=== PATIENT | female | born 1950 | race Caucasian/White ===

== ENCOUNTER → 2021-04-08 12:07 | Outpatient (CLI) | payer MEDICARE, SELFPAY ==
[2021-04-08 12:43] LABS: Add Manual Diff / Slide Review NO; Basophils Absolute Auto 0 /uL (0-100); Basophils Percent Auto 0.2 % (0-2); Eosinophils Absolute Auto 0 /uL (0-450); Eosinophils Percent Auto 0.2 % (2-4); Hematocrit 39.7 % (36-46); Hemoglobin 13.4 g/dL (12.0-16.0); Lymphocytes Absolute Auto 700 /uL (1100-4500); Lymphocytes Percent Auto 10.6 % (25-40); Mean Corpuscular HGB Conc 33.7 % (30-36); Mean Corpuscular Hemoglobin 28.1 PG (26-34); Mean Corpuscular Volume 83.4 fL (80-100); Monocytes Absolute Auto 400 /uL (0-900); Monocytes Percent Auto 6.9 % (3-14); Neutrophils Absolute Auto 5100 /uL (1500-7000); Neutrophils Percent Auto 82.1 % (50-75); Platelet Count 239 X10^3/uL (150-400); Red Blood Cell Count 4.76 X10^6/uL (4.0-5.2); Red Cell Distribution Width 14.7 % (11.6-14.8); White Blood Cell Count 6.2 X10^3/uL (4.5-11.0)
[2021-04-08 12:58] LABS: Alanine Aminotransferase 24 IU/L (<35); Albumin Globulin Ratio 1.7 (1.0-2.8); Alkaline Phosphatase 78 U/L (38-126); Aspartate Aminotransferase 30 IU/L (14-36); Bilirubin Total 0.5 mg/dL (0.2-1.3); Blood Urea Nitrogen 9 mg/dL (7-17); Calcium 9.8 mg/dL (8.4-10.2); Carbon Dioxide 28 mmol/L (22-32); Creatine Kinase 84 U/L (30-135); Estimated Glomerular Filt Rate > 60.0 mL/min (>60); Glucose 123 mg/dL (80-110); HEMOLYSIS < 15 (0-50); Potassium 4.2 mmol/L (3.4-5.1)
[2021-04-08 13:10] LABS: Troponin I < 0.012 ng/mL (0.01-0.034)
[2021-04-08 13:11] LABS: Sodium 115 mmol/L (137-145)
[2021-04-08 13:12] LABS: Chloride 76 mmol/L (98-107)
[2021-04-08 13:13] LABS: Erythrocyte Sedimentation Rate 2 MM/HR (0-20)
== END ==
PROVIDERS: PCP Physician Assistant; Referring Provider Physician Assistant; Visit Provider Physician Assistant
DX: R53.1 Weakness (principal)
CPT/HCPCS: 36415; 80053; 82550; 84484; 85025; 85651

== ENCOUNTER 2021-04-08 14:27 | Inpatient (IN) | payer MEDICARE, SELFPAY ==
[2021-04-08] VITALS (13 sets, daily range): BP systolic 135–202; BP diastolic 66–84; PULSE 71–82; RESP 13–29; TEMP 36.6; O2SAT 98–100; BMI 24.7; BMI 25.4
--- NOTE | 2021-04-08 15:01 | ED.GENADULT ---
HPI - General Adult General Chief complaint: Weakness Stated complaint: Low sodium levels, Sent by PCP Time Seen by Provider: 04/08/21 14:48 Source: patient Mode of arrival: Wheelchair Limitations: no limitations History of Present Illness HPI narrative: Patient is a 70-year-old female. Approximately 5 days ago she was at her normal state health. She went to go use the restroom and as she was standing up from the restroom noticed that she was having quite a bit of weakness. Since that time she has felt very poorly. Has had weakness. Some lightheadedness. No chest pain. No shortness of breath. No abdominal pain. No nausea vomiting. No urinary symptoms. No change in her bowel habits. She is a [id number] diabetic. Does have neuropathy in her feet and this is not changed. Yesterday had a telephone visit with a new primary doctor. Was having some dysuria. Was placed on antibiotics. Today she had a inpatient visit with his primary doctor. Had labs drawn as an outpatient. It was noticed that her sodium was low so she was instructed to come to the emergency department for further evaluation. She has been taking all of her medications as directed. Related Data Home Medications Medication Instructions Recorded Confirmed fluticasone propionate 50 1 spray INTRANASAL DAILY PRN 04/08/21 04/08/21 mcg/actuation nasal spray,suspension gabapentin 600 mg tablet 1,200 mg PO BEDTIME 04/08/21 04/08/21 gabapentin 600 mg tablet 600 mg PO QAM 04/08/21 04/08/21 hydrochlorothiazide 25 mg tablet 25 mg PO QAM 04/08/21 04/08/21 lisinopril 20 mg tablet 20 mg PO QAM 04/08/21 04/08/21 meloxicam 15 mg tablet 15 mg PO QAM 04/08/21 04/08/21 metformin 500 mg tablet 500 mg PO BID 04/08/21 04/08/21 nitrofurantoin 100 cap PO BID 04/08/21 04/08/21 monohydrate/macrocrystals 100 mg capsule Allergies Allergy/AdvReac Type Severity Reaction Status Date / Time No Known Drug Allergies Allergy Verified 04/08/21 14:34 Review of Systems Constitutional Constitutional: Reports fatigue, Denies headache(s) and Reports malaise Eyes Eyes: Denies change in vision ENT Ears, Nose, Mouth, and Throat: Denies headache(s) Cardiovascular Cardiovascular: Denies chest pain and Denies dyspnea Respiratory Respiratory: Denies dyspnea Gastrointestinal Gastrointestinal: Denies abdominal pain, Denies nausea and Denies vomiting Genitourinary Genitourinary: Reports system reviewed and no additional complaints, except as documented Musculoskeletal Musculoskeletal: Reports system reviewed and no additional complaints, except as documented and Reports as per HPI Integumentary/Breasts Skin/Breast: Reports system reviewed and no additional complaints, except as documented and Reports as per HPI Neurologic Neurologic: Reports as per HPI and Denies headache(s) Endocrine Endocrine: Reports fatigue Hematologic/Lymphatic On Anticoagulants: No Patient History Medical History Hypertension Peripheral neuropathy Type 2 diabetes mellitus Social History Smoking Status: Never smoker Smoking Status: Never smoker alcohol intake frequency: a few times a week Substance Use Type: does not use Exam Initial Vital Signs Initial Vital Signs: Vital Signs Temperature 97.8 F 04/08/21 14:30 Pulse Rate 78 04/08/21 14:30 Respiratory Rate 18 04/08/21 14:30 Blood Pressure 202/79 H 04/08/21 14:30 Pulse Oximetry 98 04/08/21 14:30 Const General: cooperative, healthy appearing, comfortable and well developed [facility] Head: normal to inspection and normocephalic Eyes General: appearance normal, both eyes and all related structures Neck Neck: normal visual inspection and no meningeal signs Resp Effort & Inspection: normal respiratory effort Auscultation: clear to auscultation bilaterally Cardio Rate: regular rate Rhythm: regular rhythm GI Inspection: non-distended Palpation: soft and No tender Back/Spine/Pelvis Back: normal to inspection Skin Lesions: no lesions Rashes: no rashes Neuro General: patient alert, patient awake, patient oriented x3 and moves all extremities Cognition: normal cognition Speech: speech normal Motor: muscle tone normal throughout Sensory Exam: no sensory deficits noted Extrem General: normal to inspection and capillary refill normal Psych Appearance: grossly normal and well kempt Course Orders Ordered: ED Orders 04/08/21 14:55 Complete Blood Count AUTO DIFF Stat Comprehensive Metabolic Panel Stat Lipase Stat Magnesium Stat Phosphorous Stat 04/08/21 14:59 COVID19 - ADMIT (COSMETICS PRESSER swab/PCR) Stat Acetaminophen (Acetaminophen 325 Mg Tablet) 650 mg PO Q6HR PRN PRN Reason: Fever Enoxaparin Sodium (Enoxaparin 40 Mg/0.4 Ml Syringe) 40 mg SUBCUT DAILY GREY Sodium Chloride (Hypertonic Saline 3%) 500 mls @ 30 mls/hr IV CONT GREY Naloxone HCl (Naloxone 0.4 Mg/Ml Vial) 0.2 mg IV Q2MIN PRN PRN Reason: Opiate Reversal Vital Signs Vital signs: Vital Signs - 8 hr 04/08/21 14:30 04/08/21 14:58 04/08/21 15:00 Temperature 97.8 F Pulse Rate 78 82 81 Respiratory Rate 18 29 H 23 Blood Pressure 202/79 H 189/84 H Pulse Oximetry 98 100 99 04/08/21 15:30 Temperature Pulse Rate 78 Respiratory Rate 15 Blood Pressure 171/76 H Pulse Oximetry 99 Medical Decision Making Lab Data Lab results reviewed: Yes I reviewed the patient's lab results. Result diagrams: 04/08/21 14:55 04/08/21 14:55 Labs: Lab Results 04/08/21 04/08/21 04/08/21 Range/Units 14:55 14:55 14:55 WBC 5.9 (4.5-11.0) X10^3/uL RBC 4.55 (4.0-5.2) X10^6/uL Hgb 12.9 (12.0-16.0) g/dL Hct 38.4 (36-46) % MCV 84.3 (80-100) fL MCH 28.3 (26-34) PG MCHC 33.5 (30-36) % RDW 14.7 (11.6-14.8) % Plt Count 229 (150-400) X10^3/uL Neut % (Auto) 81.7 H (50-75) % Lymph % (Auto) 11.4 L (25-40) % [place] % (Auto) 6.6 (3-14) % Eos % (Auto) 0.2 L (2-4) % Baso % (Auto) 0.1 (0-2) % Neut # (Auto) 4800 (1597-0119) /uL Lymph # (Auto) 700 L (6272-8935) /uL [place] # (Auto) 400 (0-900) /uL Eos # (Auto) 0 (0-450) /uL Baso # (Auto) 0 (0-100) /uL Sodium 113 L* (137-145) mmol/L Potassium 3.8 (3.4-5.1) mmol/L Chloride 78 L (98-107) mmol/L Carbon Dioxide 24 (22-32) mmol/L BUN 8 (7-17) mg/dL Creatinine 0.39 L (0.52-1.04) mg/dL Estimated GFR > 60.0 (>60) mL/min BUN/Creatinine Ratio 20.5 (6-22) Glucose 163 H (80-110) mg/dL Calcium 9.3 (8.4-10.2) mg/dL Phosphorus 3.8 (2.8-4.1) mg/dL Magnesium 1.6 (1.6-2.3) mg/dL Total Bilirubin 0.5 (0.2-1.3) mg/dL AST 39 H (14-36) IU/L ALT 23 (<35) IU/L Alkaline Phosphatase 71 (38-126) U/L Total Protein 7.5 (6.3-8.2) g/dL Albumin 4.7 (3.5-5.0) g/dL Globulin 2.8 (1.7-4.1) g/dL Albumin/Globulin Ratio 1.7 (1.0-2.8) Lipase 89 (23-300) U/L SARS-CoV-2 (PCR) (Negative) 04/08/21 Range/Units 14:59 WBC (4.5-11.0) X10^3/uL RBC (4.0-5.2) X10^6/uL Hgb (12.0-16.0) g/dL Hct (36-46) % MCV (80-100) fL MCH (26-34) PG MCHC (30-36) % RDW (11.6-14.8) % Plt Count (150-400) X10^3/uL Neut % (Auto) (50-75) % Lymph % (Auto) (25-40) % [place] % (Auto) (3-14) % Eos % (Auto) (2-4) % Baso % (Auto) (0-2) % Neut # (Auto) (6690-1715) /uL Lymph # (Auto) (4222-3511) /uL [place] # (Auto) (0-900) /uL Eos # (Auto) (0-450) /uL Baso # (Auto) (0-100) /uL Sodium (137-145) mmol/L Potassium (3.4-5.1) mmol/L Chloride (98-107) mmol/L Carbon Dioxide (22-32) mmol/L BUN (7-17) mg/dL Creatinine (0.52-1.04) mg/dL Estimated GFR (>60) mL/min BUN/Creatinine Ratio (6-22) Glucose (80-110) mg/dL Calcium (8.4-10.2) mg/dL Phosphorus (2.8-4.1) mg/dL Magnesium (1.6-2.3) mg/dL Total Bilirubin (0.2-1.3) mg/dL AST (14-36) IU/L ALT (<35) IU/L Alkaline Phosphatase (38-126) U/L Total Protein (6.3-8.2) g/dL Albumin (3.5-5.0) g/dL Globulin (1.7-4.1) g/dL Albumin/Globulin Ratio (1.0-2.8) Lipase (23-300) U/L SARS-CoV-2 (PCR) Negative (Negative) MDM Narrative Medical decision making narrative: Patient's symptoms seem to have started 5 days ago. Her sodium today is low. I suspect that this is the cause of her symptoms over the past 5 days. Kidney function is unremarkable. Discussed the case with Dr. Womack with Internal Medicine. Will admit for further evaluation treatment. Did discuss this with the patient as well. She expressed understanding agreement. Discharge Plan Departure Admit Date/Time: 04/08/21 16:12 Admit Provider: Sarmad Womack
[2021-04-08 15:03] LABS: Add Manual Diff / Slide Review NO; Basophils Absolute Auto 0 /uL (0-100); Basophils Percent Auto 0.1 % (0-2); Eosinophils Absolute Auto 0 /uL (0-450); Eosinophils Percent Auto 0.2 % (2-4); Hematocrit 38.4 % (36-46); Hemoglobin 12.9 g/dL (12.0-16.0); Lymphocytes Absolute Auto 700 /uL (1100-4500); Lymphocytes Percent Auto 11.4 % (25-40); Mean Corpuscular HGB Conc 33.5 % (30-36); Mean Corpuscular Hemoglobin 28.3 PG (26-34); Mean Corpuscular Volume 84.3 fL (80-100); Monocytes Absolute Auto 400 /uL (0-900); Monocytes Percent Auto 6.6 % (3-14); Neutrophils Absolute Auto 4800 /uL (1500-7000); Neutrophils Percent Auto 81.7 % (50-75); Platelet Count 229 X10^3/uL (150-400); Red Blood Cell Count 4.55 X10^6/uL (4.0-5.2); Red Cell Distribution Width 14.7 % (11.6-14.8); White Blood Cell Count 5.9 X10^3/uL (4.5-11.0)
--- NOTE | 2021-04-08 15:07 | PC.NURSE ---
Patient states she has felt weak since ; her PCP kathryn labs and advised her to come to the ER for her low Sodium.
[2021-04-08 15:17] LABS: Alanine Aminotransferase 23 IU/L (<35); Albumin 4.7 g/dL (3.5-5.0); Albumin Globulin Ratio 1.7 (1.0-2.8); Alkaline Phosphatase 71 U/L (38-126); Aspartate Aminotransferase 39 IU/L (14-36); BUN Creatinine Ratio 20.5 (6-22); Bilirubin Total 0.5 mg/dL (0.2-1.3); Blood Urea Nitrogen 8 mg/dL (7-17); Calcium 9.3 mg/dL (8.4-10.2); Carbon Dioxide 24 mmol/L (22-32); Chloride 78 mmol/L (98-107); Estimated Glomerular Filt Rate > 60.0 mL/min (>60); Globulin 2.8 g/dL (1.7-4.1); Glucose 163 mg/dL (80-110); HEMOLYSIS 32 (0-50); Potassium 3.8 mmol/L (3.4-5.1); Total Protein 7.5 g/dL (6.3-8.2)
[2021-04-08 15:18] LABS: Lipase 89 U/L (23-300); Magnesium 1.6 mg/dL (1.6-2.3); Phosphorous 3.8 mg/dL (2.8-4.1)
[2021-04-08 15:24] LABS: Sodium 113 mmol/L (137-145)
--- NOTE | 2021-04-08 16:25 | PC.NURSE ---
Up to bathroom with 1 person assist; slightly wobbly on feet.
[2021-04-08 16:27] LABS: COVID19 - ADMIT (NP swab/PCR) Negative (Negative)
--- NOTE | 2021-04-08 16:43 | PC.NURSE ---
Charu [phone]; [id number] --would like update when possible.
--- NOTE | 2021-04-08 17:32 | PC.NURSE ---
Tressa Edge RN in ED for PICC insertion
[2021-04-08] MEDS: SODIUM CHLORIDE 3 % 500 ML 30 ML IV (18:41)
[2021-04-08 19:07] LABS: Blood Urea Nitrogen 8 mg/dL (7-17); Calcium 9.4 mg/dL (8.4-10.2); Carbon Dioxide 29 mmol/L (22-32); Chloride 79 mmol/L (98-107); Estimated Glomerular Filt Rate > 60.0 mL/min (>60); Glucose 118 mg/dL (80-110); HEMOLYSIS < 15 (0-50); Potassium 3.7 mmol/L (3.4-5.1)
[2021-04-08 19:18] LABS: Sodium 115 mmol/L (137-145)
--- NOTE | 2021-04-08 19:29 | P.HP_ITS ---
History of Present Illness History of Present Illness Date Patient Seen: 04/08/21 Time Patient Seen: 16:00 Chief complaint: Low sodium levels, Sent by PCP Narrative: Ms. Vasquez is a 70W with PMH HTN, DM, peripheral neuropathy who is coming in to the hospital with weakness, imbalanced and hyponatremia. She was in her normal state of health approximately 5 days ago, but since then she has started to notice progressively worsening imbalance and weakness. She has noticed lightheadedness. She has decreased oral intake due to low appetite. No nausea, vomiting, abdominal pain, diarrhea. She had some dysuria prior to this presentation and talked to her PCP and was ordered for macrobid and took two doses. In addition she had lab tests drawn and was found to have a sodium of 115, and was instructed to come to ED. She is on HCTZ, but this is not a new medication, and she is at her baseline dose. She has no new meds, no weight loss, no respiratory symptoms, no OTC/herbal meds. In the ED, workup was done, vitals were notable for significant hypertension. Labs notable for WBC 5.9, hgb 12.9, plt 229, na 113, cl 78, k 3.8, mag 1.6, bun 8, creatinine 0.39. She was ordered for 3% hypertonic saline and ordered for a midline. She was admitted for further treatment. Family history: both parents with CHF Patient History Medical History Hypertension Peripheral neuropathy Type 2 diabetes mellitus Family & Social History Safety & Behavioral: Feels Safe in Current Yes Environment Been Physically Hurt or No Threatened By a Person Tobacco & Substance use: Smoking Status Never smoker alcohol intake frequency a few times a week Substance Use Type does not use Meds Home Medications and Allergies Home Medications Medication Instructions Recorded Confirmed Type fluticasone propionate 50 1 spray INTRANASAL DAILY PRN 04/08/21 04/08/21 History mcg/actuation nasal spray,suspension gabapentin 600 mg tablet 1,200 mg PO BEDTIME 04/08/21 04/08/21 History gabapentin 600 mg tablet 600 mg PO QAM 04/08/21 04/08/21 History hydrochlorothiazide 25 mg tablet 25 mg PO QAM 04/08/21 04/08/21 History lisinopril 20 mg tablet 20 mg PO QAM 04/08/21 04/08/21 History meloxicam 15 mg tablet 15 mg PO QAM 04/08/21 04/08/21 History metformin 500 mg tablet 500 mg PO BID 04/08/21 04/08/21 History nitrofurantoin 100 cap PO BID 04/08/21 04/08/21 History monohydrate/macrocrystals 100 mg capsule Allergies Allergy/AdvReac Type Severity Reaction Status Date / Time No Known Drug Allergies Allergy Verified 04/08/21 14:34 Review of Systems Review of Systems Narrative: 14 systems reviewed and negative aside from what is noted in HPI Exam Vital Signs (past 8 hours): - 04/08/21 14:30 04/08/21 14:58 04/08/21 15:00 Temperature 97.8 F Pulse Rate 78 82 81 Respiratory Rate 18 29 H 23 Blood Pressure 202/79 H 189/84 H Pulse Oximetry 98 100 99 04/08/21 15:30 04/08/21 16:00 04/08/21 18:26 Temperature 97.9 F Pulse Rate 78 78 73 Respiratory Rate 15 20 14 Blood Pressure 171/76 H 177/77 H 169/77 H Pulse Oximetry 99 100 100 Oxygen Delivery Method Room Air Oxygen Flow Rate 0 Narrative Exam Narrative: GEN: no acute distress HEENT: dry mucous membranes, PERRL NECK: trachea midline, no JVD CV: regular rate and rhythm, no murmurs PULM: clear bilaterally, no wheezes, rhonchi, rales ABD: soft, nontender, nondistended, no organomegaly, normal bowel sounds EXT: warm and well perfused with no edema NEURO: slow to respond, but otherwise awake alert and oriented, with no focal deficits noted PSYCH: pleasant, cooperative Objective Labs Result Diagrams: 04/08/21 14:55 04/08/21 18:40 Labs: Laboratory Results - last 24 hr 04/08/21 04/08/21 04/08/21 14:55 14:55 14:55 WBC 5.9 RBC 4.55 Hgb 12.9 Hct 38.4 MCV 84.3 MCH 28.3 MCHC 33.5 RDW 14.7 Plt Count 229 Neut % (Auto) 81.7 H Lymph % (Auto) 11.4 L [place] % (Auto) 6.6 Eos % (Auto) 0.2 L Baso % (Auto) 0.1 Neut # (Auto) 4800 Lymph # (Auto) 700 L [place] # (Auto) 400 Eos # (Auto) 0 Baso # (Auto) 0 Sodium 113 L* Potassium 3.8 Chloride 78 L Carbon Dioxide 24 BUN 8 Creatinine 0.39 L Estimated GFR > 60.0 BUN/Creatinine Ratio 20.5 Glucose 163 H Calcium 9.3 Phosphorus 3.8 Magnesium 1.6 Total Bilirubin 0.5 AST 39 H ALT 23 Alkaline Phosphatase 71 Total Protein 7.5 Albumin 4.7 Globulin 2.8 Albumin/Globulin Ratio 1.7 Lipase 89 SARS-CoV-2 (PCR) 04/08/21 04/08/21 14:59 18:40 WBC RBC Hgb Hct MCV MCH MCHC RDW Plt Count Neut % (Auto) Lymph % (Auto) [place] % (Auto) Eos % (Auto) Baso % (Auto) Neut # (Auto) Lymph # (Auto) [place] # (Auto) Eos # (Auto) Baso # (Auto) Sodium 115 L* Potassium 3.7 Chloride 79 L Carbon Dioxide 29 BUN 8 Creatinine 0.47 L Estimated GFR > 60.0 BUN/Creatinine Ratio 17.0 Glucose 118 H Calcium 9.4 Phosphorus Magnesium Total Bilirubin AST ALT Alkaline Phosphatase Total Protein Albumin Globulin Albumin/Globulin Ratio Lipase SARS-CoV-2 (PCR) Negative Assessment & Plan Assessment & Plan narrative: Ms. Vasquez is a 70W with PMH DM, HTN who presents with imbalance found to have severe hyponatremia 1. Severe symptomatic hyponatremia -patient appears mildly hypovolemic on exam, but not significantly so -most likely etiology is HCTZ, worsened hyponatremia in setting of poor nutrition intake -also consider SIADH -urine and sodium osms ordered, are sendout -for now given severe hyponatremia, will start infusion of hypertonic saline -check lytes q3 hours -goal to correct to 118-119 and then correct slowly -hold hctz for now 2. Type 2 Diabetes -hold metformin -ordered for insulin sliding scale 3. Hypertension -hold hctz -continue lisinopril 4. Diabetic peripheral neuropathy -continue gabapentin 5. UTI -macrobid was ordered as an outpatient -for now given dose of ceftriaxone today and tomorrow for 3 day course of antibiotics CODE: Full PROXY: Charu Leatha, family Dispo: inpatient, expected greater than 2 midnights due to severe hyponatremia I have utilized all available resources to review update, and confirm his current medications Time Spent With Patient Critical Care time: I spent a total of [35] minutes of critical care time on this patient's care today; this time is exclusive of procedural time. Quality MIPS - Admit I confirm the patient?s Advance Care Plan is present, Code status is documented, Surrogate decision maker is in patient?s record [If Yes, STOP here]: Yes
[2021-04-08] MEDS: cefTRIAXone 1,000 MG in SODIUM CHLORIDE 0.9% 100 ML 200 ML IV (20:53)
[2021-04-08] MEDS: GABAPENTIN 600 MG TABLET 1200 MG PO (20:54)
[2021-04-08 21:27] LABS: Uric Acid 2.4 mg/dL (2.5-6.2)
--- NOTE | 2021-04-08 21:29 | PM.CN.EICU ---
History of Present Illness Consult details Chief complaint: Low sodium levels, Sent by PCP :: This patient was seen via real time interactive two-way audiovisual telecommunication. 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 Pt on HCTZ, but has been on it for years (>10). She states that she has had dec water intake as her well water has been tasting off recently. In the ED, she wa started on 3% saline and she was admitted to the ICU. We were asked to help manage patient in consultation. Currently pt denies any SOB, CB, dizzyness. She states that she feels a little weak, but is non-focal. Speech is fluent without e/o overt confusion. Per bedside nurse, pt at times seems a bit confused. [facility] Medical History (Updated 04/08/21 @ 21:56 by Leann Morgan MD) Hypertension Peripheral neuropathy Type 2 diabetes mellitus Social History household members: none Smoking Status: Never smoker Current Medications Current Medications Medications: Home Medications fluticasone propionate 50 mcg/actuation nasal spray,suspension 1 spray INTRANASAL DAILY PRN 04/08/21 [History Confirmed 04/08/21] gabapentin 600 mg tablet 1,200 mg PO BEDTIME 04/08/21 [History Confirmed 04/08/21] gabapentin 600 mg tablet 600 mg PO QAM 04/08/21 [History Confirmed 04/08/21] hydrochlorothiazide 25 mg tablet 25 mg PO QAM 04/08/21 [History Confirmed 04/08/21] lisinopril 20 mg tablet 20 mg PO QAM 04/08/21 [History Confirmed 04/08/21] meloxicam 15 mg tablet 15 mg PO QAM 04/08/21 [History Confirmed 04/08/21] metformin 500 mg tablet 500 mg PO BID 04/08/21 [History Confirmed 04/08/21] nitrofurantoin monohydrate/macrocrystals 100 mg capsule 100 cap PO BID 04/08/21 [History Confirmed 04/08/21] Visit Medications (administered) Generic Name Dose Route Start Last Admin Trade Name Freq PRN Reason Stop Dose Admin Gabapentin 1,200 mg 04/08/21 21:00 04/08/21 20:54 Gabapentin 600 Mg Tablet PO 1,200 mg BEDTIME GREY Administration Sodium Chloride 500 mls @ 30 mls/hr 04/08/21 16:00 04/08/21 18:41 Hypertonic Saline 3% IV 30 mls/hr CONT GREY Administration Ceftriaxone Sodium 1,000 mg/ 100 mls @ 200 mls/hr 04/08/21 20:00 04/08/21 20:53 Sodium Chloride IV 200 mls/hr Q24H GREY Administration Insulin Human Lispro 0 unit 04/08/21 21:00 04/08/21 20:52 Insulin Lispro 100 Unit/Ml 3ml Vial SUBCUT Not Given ACHS GREY Protocol Exam Vital Signs (past 8 hours): - 04/08/21 14:30 04/08/21 14:58 04/08/21 15:00 Temperature 97.8 F Pulse Rate 78 82 81 Respiratory Rate 18 29 H 23 Blood Pressure 202/79 H 189/84 H Pulse Oximetry 98 100 99 04/08/21 15:30 04/08/21 16:00 04/08/21 18:26 Temperature 97.9 F Pulse Rate 78 78 73 Respiratory Rate 15 20 14 Blood Pressure 171/76 H 177/77 H 169/77 H Pulse Oximetry 99 100 100 04/08/21 20:00 04/08/21 20:01 04/08/21 21:00 Temperature Pulse Rate 74 72 81 Respiratory Rate 15 15 26 H Blood Pressure 177/74 H 175/76 H Pulse Oximetry 98 98 98 04/08/21 21:01 Temperature Pulse Rate 80 Respiratory Rate 17 Blood Pressure Pulse Oximetry Oxygen Delivery Method Room Air Oxygen Flow Rate 0 Objective Labs Result Diagrams: 04/08/21 14:55 04/08/21 18:40 Labs: Laboratory Results - last 24 hr 04/08/21 04/08/21 04/08/21 14:55 14:55 14:55 WBC 5.9 RBC 4.55 Hgb 12.9 Hct 38.4 MCV 84.3 MCH 28.3 MCHC 33.5 RDW 14.7 Plt Count 229 Neut % (Auto) 81.7 H Lymph % (Auto) 11.4 L [place] % (Auto) 6.6 Eos % (Auto) 0.2 L Baso % (Auto) 0.1 Neut # (Auto) 4800 Lymph # (Auto) 700 L [place] # (Auto) 400 Eos # (Auto) 0 Baso # (Auto) 0 Sodium 113 L* Potassium 3.8 Chloride 78 L Carbon Dioxide 24 BUN 8 Creatinine 0.39 L Estimated GFR > 60.0 BUN/Creatinine Ratio 20.5 Glucose 163 H Uric Acid Calcium 9.3 Phosphorus 3.8 Magnesium 1.6 Total Bilirubin 0.5 AST 39 H ALT 23 Alkaline Phosphatase 71 Total Protein 7.5 Albumin 4.7 Globulin 2.8 Albumin/Globulin Ratio 1.7 Lipase 89 SARS-CoV-2 (PCR) 04/08/21 04/08/21 04/08/21 14:59 18:40 18:40 WBC RBC Hgb Hct MCV MCH MCHC RDW Plt Count Neut % (Auto) Lymph % (Auto) [place] % (Auto) Eos % (Auto) Baso % (Auto) Neut # (Auto) Lymph # (Auto) [place] # (Auto) Eos # (Auto) Baso # (Auto) Sodium 115 L* Potassium 3.7 Chloride 79 L Carbon Dioxide 29 BUN 8 Creatinine 0.47 L Estimated GFR > 60.0 BUN/Creatinine Ratio 17.0 Glucose 118 H Uric Acid 2.4 L Calcium 9.4 Phosphorus Magnesium Total Bilirubin AST ALT Alkaline Phosphatase Total Protein Albumin Globulin Albumin/Globulin Ratio Lipase SARS-CoV-2 (PCR) Negative Assessment & Plan Assessment and plan (1) Hyponatremia: Status: Acute Plan: -Unclear etiology of hyponatremia. Pt has been on HCTZ for years and usually hyponatremia happens in the first few weeks of HCTZ introduction. No previous labs available but ? if pt has been hyponetremic for a long time and is now just symptomatic (or UTI pushed her over the edge) -Cont w 3% Nacl and check frequent Na levels. Avoid too rapid a correction (Goal ~8 meq/24 hours) -Will check TSH and random serum cortisol -Check uric acid (usually low in SIADH) -Consider imaging (pCXR to r/o lung mass or Head CT to r/o intracranial pathology) if hyponatremia related to SIADH and there is concern for pathology (2) Hypertension: Status: Acute Plan: Add PRN labetalol. Change HCTZ to other agent (3) UTI (urinary tract infection): Status: Acute Plan: Check UA w reflex to culture. Agree w CFTX for now (4) Type 2 diabetes mellitus: Status: Acute Plan: SSI (5) Fatigue: Status: Acute Plan: Likely multifactorial exacerbated by #1. Would get PT eval in preparation for discharge Plan: Agree w lovenox for DVT prophylaxis Consider d/c morris cath if pt is able to void on her own to decrease risk of iatrogenic infection COVID-19 COVID-19 status: Negative Result date/Date tested (Pos, Neg/Pending): 04/08/21 Time Spent With Patient Critical Care time: I spent a total of [60] minutes of critical care time on this patient's care today; this time is exclusive of procedural time.
[2021-04-08 21:33] LABS: Sodium Urine Random 32 mmol/L (30-90)
[2021-04-08 22:01] LABS: BUN Creatinine Ratio 14.3 (6-22); Blood Urea Nitrogen 7 mg/dL (7-17); Calcium 9.4 mg/dL (8.4-10.2); Carbon Dioxide 30 mmol/L (22-32); Chloride 80 mmol/L (98-107); Estimated Glomerular Filt Rate > 60.0 mL/min (>60); Glucose 133 mg/dL (80-110); HEMOLYSIS < 15 (0-50); Potassium 4.3 mmol/L (3.4-5.1); Sodium 120 mmol/L (137-145)
[2021-04-08 22:09] LABS: Appearance Urine UA CLEAR; Bilirubin Urine UA NEGATIVE (NEGATIVE); Color Urine UA YELLOW; Glucose Urine UA NEGATIVE (Negative); Ketones Urine UA NEGATIVE (NEGATIVE); Leukocyte Esterase Urine UA NEGATIVE (NEGATIVE); Nitrite Urine UA NEGATIVE (Negative); Occult Blood Urine UA TRACE-LYSED (Negative); Protein Urine UA NEGATIVE (Negative); Urobilinogen Urine UA 0.2 E.U./dL (0.2)
[2021-04-08 22:10] LABS: Bacteria Urine None Seen; Culture Indicated Urine Cult Not Indicated; RBC Urine None Seen (0-5/HPF); Squamous Epithelial Cell Urine 0-1 /HPF (0-5/HPF); WBC Urine None Seen (0-5/HPF); pH Urine UA 7.5 (4.5-8.0)
--- NOTE | 2021-04-08 23:07 | PC.ADMIT ---
[address] Admission Note: The patient,Evelyn Vasquez,70 y/o, was given written information regarding hospital policies, unit procedures and contact persons. Patient's smoking status: Never smoker. Vital Signs - 8 hr 04/08/21 15:30 04/08/21 16:00 04/08/21 18:26 Temperature 97.9 F Pulse Rate 78 78 73 Respiratory Rate 15 20 14 Blood Pressure 171/76 H 177/77 H 169/77 H Pulse Oximetry 99 100 100 04/08/21 20:00 04/08/21 20:01 04/08/21 21:00 Temperature Pulse Rate 74 72 81 Respiratory Rate 15 15 26 H Blood Pressure 177/74 H 175/76 H Pulse Oximetry 98 98 98 04/08/21 21:01 04/08/21 22:00 04/08/21 22:01 Temperature Pulse Rate 80 72 72 Respiratory Rate 17 13 15 Blood Pressure 153/70 H Pulse Oximetry 04/08/21 23:00 Temperature Pulse Rate 71 Respiratory Rate 13 Blood Pressure 135/66 Pulse Oximetry Patient admitted from ER to hospitalists' care for hyponatremia. Patient is A/Ox4 but will repeat herself frequently. Patient is mildly hypertensive, HR WNL, on RA. Patient has no complaints of pain. Indwelling morris catheter inserted as ordered. NS 3% started, labs to be drawn Q3HRs. Patient oriented to room, able to make needs known.
[2021-04-09] VITALS (39 sets, daily range): BP systolic 98–175; BP diastolic 50–81; PULSE 63–89; RESP 14–45; TEMP 35.7–36.4; O2SAT 96–100
[2021-04-09 00:48] LABS: BUN Creatinine Ratio 14.3 (6-22); Blood Urea Nitrogen 7 mg/dL (7-17); Calcium 9.2 mg/dL (8.4-10.2); Carbon Dioxide 29 mmol/L (22-32); Chloride 83 mmol/L (98-107); Estimated Glomerular Filt Rate > 60.0 mL/min (>60); Glucose 109 mg/dL (80-110); HEMOLYSIS < 15 (0-50); Potassium 3.5 mmol/L (3.4-5.1); Sodium 121 mmol/L (137-145)
[2021-04-09] MEDS: ACETAMINOPHEN 325 MG TABLET 650 MG PO ×3 (03:10→16:20)
[2021-04-09 03:23] LABS: Magnesium 1.7 mg/dL (1.6-2.3)
[2021-04-09 03:24] LABS: BUN Creatinine Ratio 11.9 (6-22); Blood Urea Nitrogen 7 mg/dL (7-17); Calcium 9.5 mg/dL (8.4-10.2); Carbon Dioxide 31 mmol/L (22-32); Chloride 83 mmol/L (98-107); Estimated Glomerular Filt Rate > 60.0 mL/min (>60); Glucose 130 mg/dL (80-110); HEMOLYSIS < 15 (0-50); Potassium 3.8 mmol/L (3.4-5.1); Sodium 123 mmol/L (137-145)
[2021-04-09 03:55] LABS: Cortisol Random 6.72 ug/dL
[2021-04-09 04:03] LABS: TSH w/ Reflex to FT4 1.72 uIU/mL (0.47-4.68)
--- NOTE | 2021-04-09 05:40 | PM.EICU.INT ---
Teleintensivist Intervention Date/Time Was camera activated?: Yes Date Patient Seen: 04/09/21 Time Patient Seen: 05:40 Issue(s) Addressed Issue(s): Abnormal labs Other:: hyponatremia, increase sodium too rapid, 10mEq in less than 24 hours, from 113-123 Intervention(s) :: urine output clear 150 in last 2 hours will get stat bmp, if continues to rise will start d5w water and encourage po intake of water. will try to limit sodium in crease to 6-8mEq for 24 hours Name(s): bedside nurse
[2021-04-09 06:11] LABS: BUN Creatinine Ratio 15.5 (6-22); Blood Urea Nitrogen 9 mg/dL (7-17); Calcium 9.5 mg/dL (8.4-10.2); Carbon Dioxide 31 mmol/L (22-32); Chloride 84 mmol/L (98-107); Estimated Glomerular Filt Rate > 60.0 mL/min (>60); Glucose 120 mg/dL (80-110); HEMOLYSIS < 15 (0-50); Potassium 4.4 mmol/L (3.4-5.1); Sodium 121 mmol/L (137-145)
--- NOTE | 2021-04-09 07:14 | DI.RAD.S_ITS ---
PROCEDURE: XR CHEST 1V INDICATIONS: ?siadh, ?pulmonary abnormality TECHNIQUE: One view of the chest was acquired. COMPARISON: None. FINDINGS: Surgical changes and devices: None. Lungs and pleura: Lungs appear clear. No pleural effusions or pneumothorax. Mediastinum: Mediastinal contours appear normal. Heart size is normal. Bones and chest wall: No suspicious bony lesions. Overlying soft tissues appear unremarkable. IMPRESSION: No acute cardiopulmonary abnormality identified. Dictated by: Chris Kee M.D. on 04/09/2021 at 7:52 Approved by: Chris Kee M.D. on 04/09/2021 at 7:53
[2021-04-09] MEDS: lisinopriL 20 MG TABLET PO (08:21)
[2021-04-09] MEDS: ENOXAPARIN 40 MG/0.4 ML SYRINGE SUBCUT (08:21)
[2021-04-09] MEDS: GABAPENTIN 600 MG TABLET PO (08:21)
--- NOTE | 2021-04-09 08:34 | DI.CT.S_ITS ---
PROCEDURE: CT HEAD/BRAIN WO CON INDICATIONS: confusion TECHNIQUE: Noncontrast 4.5 mm thick angled axial sections acquired from the foramen magnum to the vertex, with coronal and sagittal reformats. For radiation dose reduction, the following was used: automated exposure control, adjustment of mA and/or kV according to patient size. COMPARISON: None. FINDINGS: Image quality: Excellent. CSF spaces: Basal cisterns are patent. No extra-axial fluid collections. There is there is [id number] cerebral volume loss, with resultant ventricular and sulcal prominence. Brain: No intracranial hemorrhage, mass, or mass effect. There are subcortical, periventricular and deep white matter hypodensities consistent with mild chronic small vessel ischemic changes. The weldon-white matter junction appears preserved. There is intracranial internal carotid artery atherosclerosis. Skull and face: Calvarium and visualized facial bones are intact, without suspicious lesions. Sinuses: Visualized sinuses and mastoids are clear. IMPRESSION: 1. No acute intracranial abnormality. 2. Mild to moderate cerebral volume loss and mild chronic white matter small vessel ischemic changes. Dictated by: Arnold Levine M.D. on 04/09/2021 at 8:57 Approved by: Arnold Levine M.D. on 04/09/2021 at 9:01
--- NOTE | 2021-04-09 09:40 | PM.EICU.INT ---
Teleintensivist Intervention Date/Time Was camera activated?: No Date Patient Seen: 04/09/21 Issue(s) Addressed Issue(s): Abnormal labs Intervention(s) :: repeat sodium 121, pt with no acute symptoms, mental status improving pt downgraded out of ICU prior to to rounds by primary team. please recall prn
[2021-04-09 10:36] LABS: BUN Creatinine Ratio 15.4 (6-22); Blood Urea Nitrogen 10 mg/dL (7-17); Calcium 9.3 mg/dL (8.4-10.2); Carbon Dioxide 29 mmol/L (22-32); Chloride 84 mmol/L (98-107); Estimated Glomerular Filt Rate > 60.0 mL/min (>60); Glucose 163 mg/dL (80-110); HEMOLYSIS < 15 (0-50); Potassium 3.9 mmol/L (3.4-5.1); Sodium 122 mmol/L (137-145)
--- NOTE | 2021-04-09 10:37 | CM.DANOTE ---
Patient is a 70 yo female who was admitted on 04/08/21 for Low Sodium Levels. Pt has M[employer] and [employer] for insurance and her PCP is Sonia Spaulding. EMR was reviewed. Per MD, pt with severe hyponatremia, UTI and on fluid restriction currently and to have a CT scan today. Per RN, pt still a little unsteady but alert and oriented. SW met bedside with pt and explained role and pt confirms that she lives in [place] alone and is active and independent at baseline and does not use DME for ambulation and still drives. 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 Pt's spouse had been her DPOA and she has plans to change her DPOA pwk to show her brother and sister teo as her new DPOA's. Brother and sister teo Box live in [place] and pt's cousin lives in [facility] and is currently staying at pt's house with her cat and dog while she is admitted to the hospital. Pt denies any hx of HH or SNF but does feel weaker and below baseline and states if she needs walker for ambulation for a bit at d/c she states her cousin can pick her up one. Pt does not anticipate any needs at d/c and states that either her brother (who is retired) or her cousin can transport her at discharge. Pt has chronic back pain/lumbar sciatica issues at baseline and confirms her pain has increased during her move. Plan: SW to follow closely for CT scan results and PT eval and recommendations to confirm if pt will be safe for return home alone via family POV and any further identified discharge planning needs. KARISHMA Chase Discharge Planning/Care Management CM Discharge Assessment Start: 04/09/21 10:36 Freq: Status: Active Protocol: Document 04/09/21 10:36 BF (Rec: 04/09/21 10:37 BF [id number]) Discharge Planning Assessment Assigned Flying Teacher KARISHMA Jain DPOA/Assigned Designee Name informally brother and sister teo Contact Information [phone] Advance Directives? No History Provided By Patient,Medical Record Has Patient been admitted in last 30 No days? Prior Living Arrangements House Household Members none Type of transporation used prior to Drives own vehicle admit Independent with ADL's Yes Is patient alert and oriented? Yes Caregiver for Another No Patient/Family Preference Home with Home Health Comment Pending PT eval and recommendations Barriers to Discharge No Discharge Plan Home with Home Health Transportation Arrangement Pt states her cousin or brother can provide transport at d/c Additional Comment Pending PT eval and recommendations Whiteboard Updated in Patient Room with Yes name and ext. # of Flying Teacher Review Status In Process Please Provide Date Initial DC 04/09/21 Assessment Was Performed Next Review Type Continued Stay Review
--- NOTE | 2021-04-09 10:55 | PT.IIE ---
Current Diagnoses Type 2 diabetes mellitus without complications (04/08/21) Hypo-osmolality and hyponatremia (04/08/21) Essential (primary) hypertension (04/08/21) Urinary tract infection, site not specified (04/08/21) Other fatigue (04/08/21) Medical History (Last Updated 04/08/21 @ 21:42 by Leann Morgan MD) Hypertension Peripheral neuropathy Type 2 diabetes mellitus Physical Therapy Inpatient Evaluation/Re-Eval M1 PT/OT-IP Prior Functional Status Start: 04/09/21 12:12 Freq: NEEDED Status: Active Protocol: Document 04/09/21 10:55 AB (Rec: 04/09/21 12:27 AB [id number]) Medical Review Prior Functional Status Medical History Reviewed Yes Communication able to make needs known Mobility and Gait pt stated that she is independent with all mobilities and ambulation without AD Social History Household Members none Living Arrangements Mobile home Number of Floors (Floors) One Floor Number of Stairs To Enter/Railing? 2 steps to enter with L rail ascending and R side wall Home Environment High Toilet,Tub/Shower Home Equipment Hand Held Shower Additional Social History Comment stated that her cousin has a walker for her to use but do not what kind M2 PT-IP Current Condition Start: 04/09/21 12:12 Freq: NEEDED Status: Active Protocol: Document 04/09/21 10:55 AB (Rec: 04/09/21 12:27 AB [email or web address]) Physical Therapy Current Condition Current Condition Evaluation Date 04/09/21 Treatment Diagnosis hyponatremia; difficulty in walking Onset Date 04/08/21 M3 PT-IP Subjective Start: 04/09/21 12:12 Freq: NEEDED Status: Active Protocol: Document 04/09/21 10:55 AB (Rec: 04/09/21 12:27 AB [email or web address]) Subjective Physical Therapy Visit Type Type Initial Evaluation Visit Start Time 10:55 Visit Stop Time 11:20 Total Visit Minutes 25 Number of MANAGER SIGN Visits 0 Physical Therapy Visit Comments Patient Comments agreeable to do PT M4 PT-IP Mobility and Gait Start: 04/09/21 12:12 Freq: NEEDED Status: Active Protocol: Document 04/09/21 10:55 AB (Rec: 04/09/21 12:27 AB [email or web address]) PT-Bed Mobility Assessment Supine to Sit Supine to Sit Standby Assistance Sit to Supine Sit to Supine Standby Assistance PT-Transfer Assessment Sit to and From Stand Sit to and from Stand Contact Guard Assistance,1 Person Assistance,Use of Upper Extremities Equipment Transfer Assistive Device Gait Belt,Front Wheeled Walker Orthotic/Prosthetic Devices or Brace: No Transfers Transfer Destination Bed Transfer Technique ambulated Transfer Ability Level of Assist Contact Guard Assistance,1 Person Assistance,Use of Upper Extremities Comments Mobility Comments pt sitting on chair and agreed to do PT. pt also requested to take a shower and nurse is aware. pt can be impulsive. completed sit to stand from the chair CGA and ambulated in room using FWW ~ 35 ft CGA. ambulated to the bed and completed sit<>supine SBA. nurse set up the toilet for pt 's shower. pt ambulated from bed to the shower chair ~ 20 ft using FWW CGA and cues. Gait Assessment Gait Gait Assistance Required: Contact Guard Assist Distance (Feet) 35 Able to Maintain Weight Bearing Status Yes During Gait Assistive Devices Assistive Device Gait Belt,Front Wheeled Walker Orthotic/Prosthetic Devices or Brace: No Gait Deviations General Gait Pattern Ataxic,Decreased Stride Length ,Decreased Feet Clearance, Flexed Trunk,Step-to Gait Factors Limiting Gait Function Factors Limiting Gait Function Decreased Activity Tolerance, Decreased Strength,Difficulty Following Directions,Limited Range of Motion,Pain,Poor Balance,Poor Safety Awareness Comments Gait Comments pls refer to mobility section for details presents with thoracic kyphosis and dextroscoliosis with increase BLE external rotation during standing and walking. pt stated that she has chronic neuropathy on B feet. PT-Balance Assessment Sitting Balance and Reactions Static Sitting Balance Ability Good Dynamic Sitting Balance Ability Good Standing Balance and Reactions Static Standing Balance Ability Fair Dynamic Standing Balance Ability Fair Device Used FWW M5 PT-IP Objective Assessments Start: 04/09/21 12:12 Freq: NEEDED Status: Active Protocol: Document 04/09/21 10:55 AB (Rec: 04/09/21 12:27 AB [id number]) Orientation Orientation/Cognition Level of Alertness Alert Orientation Name,Place,Situation Language Function Ability No Deficits Noted Safety Awareness Decreased Safety Awareness Memory Description No Deficits Noted Gross Range of Motion Lower Extremity ROM Assessment Within Functional Limits Strength Lower Extremity Strength Hip 3+/5 Knee 3+/5 Sensation Assessment Sensation Gross Sensation Left LE Impaired Sensation Description Numbness,Tingling Comments Sensation Comments B feet neuropathy Muscle Tone Muscle Tone WNL Yes M6 PT-IP Treatment Start: 04/09/21 12:12 Freq: NEEDED Status: Active Protocol: Document 04/09/21 10:55 AB (Rec: 04/09/21 12:27 AB [id number]) Physical Therapy Treatment Education Education Provided Safety M7 PT-IP Assessment and Plan Start: 04/09/21 12:12 Freq: NEEDED Status: Active Protocol: Document 04/09/21 10:55 AB (Rec: 04/09/21 12:27 AB [id number]) PT Summary Assessment and Plan Potential Rehabilitation Potential Fair Status of Condition at Evaluation Evolving Summary Impairments Pain,ROM,Strength,Balance, Coordination,Sensation,Tone, Cognition,Bed Mobility, Transfers,Gait,Activity Tolerance Assessment Summary pt requiring CGA with ambulation using FWW but is very impulsive and requires cues for safety. pt stated that her cousin has a walker for her to use but does not know what kind. will f/u with pt. pt will need assistance at home at this time and does not have anybody to assist her . pt may require SNF rehab but will need further assessment depending on progress. Goals Bed Mobility Goal Independent Transfer Goal Independent,Front Wheeled Walker Gait Goal Independent,Front Wheel Walker Gait Distance 250 Other Goals ambualtion with least restrictive AD/without AD 300 ft SBA up/down 2 steps L rail SBA Days to Meet Goals 10 Frequency of Treatment Frequency Of Treatment Once a Day Treatment Plan Physical Therapy Treatment Plan Bed Mobility Training,Transfer Training,Gait Training, Therapeutic Exercise,Balance Retraining,Post Op Education, Discharge Planning,Hot or Cold Pack,Neuromuscular Re-ed, Coordination Retraining,Manual Therapy Other Recommendations and Next Treatment ambulation Focus Recommendations To Nursing Amount of Assist Needed 1 Person Assist Discharge Recommendations PT Discharge Recommendations Home with Assistance,Home Health,SNF Rehab,Home vs SNF Transportation Needs at Discharge Private Vehicle,Wheelchair/ Cabulance
--- NOTE | 2021-04-09 14:33 | P.PN_ITS ---
Subjective Subjective Date Patient Seen: 04/09/21 Time Patient Seen: 08:00 Interval history: Today she appears more energetic and alert than yesterday. She says she is feeling better. Still feels unsteady. Exam Vital Signs (past 8 hours): - 04/09/21 08:00 04/09/21 11:58 Temperature 97.5 F L 97.2 F L Pulse Rate 67 86 Respiratory Rate 16 19 Blood Pressure 152/67 H 114/55 L Pulse Oximetry 97 98 Oxygen Delivery Method Room Air Oxygen Flow Rate 0 Narrative Exam Narrative: GEN: no acute distress HEENT: dry mucous membranes, PERRL NECK: trachea midline, no JVD CV: regular rate and rhythm, no murmurs PULM: clear bilaterally, no wheezes, rhonchi, rales ABD: soft, nontender, nondistended, no organomegaly, normal bowel sounds EXT: warm and well perfused with no edema NEURO: slow to respond, but otherwise awake alert and oriented, with no focal deficits noted PSYCH: pleasant, cooperative Objective Labs Result Diagrams: 04/08/21 14:55 04/09/21 10:10 Labs: Laboratory Results - last 24 hr 04/08/21 04/08/21 04/08/21 14:55 14:55 14:55 WBC 5.9 RBC 4.55 Hgb 12.9 Hct 38.4 MCV 84.3 MCH 28.3 MCHC 33.5 RDW 14.7 Plt Count 229 Neut % (Auto) 81.7 H Lymph % (Auto) 11.[address] Lane % (Auto) 6.6 Eos % (Auto) 0.2 L Baso % (Auto) 0.1 Neut # (Auto) 4800 Lymph # (Auto) [address] # (Auto) 400 Eos # (Auto) 0 Baso # (Auto) 0 Sodium 113 L* Potassium 3.8 Chloride 78 L Carbon Dioxide 24 BUN 8 Creatinine 0.39 L Estimated GFR > 60.0 BUN/Creatinine Ratio 20.5 Glucose 163 H Uric Acid Calcium 9.3 Phosphorus 3.8 Magnesium 1.6 Total Bilirubin 0.5 AST 39 H ALT 23 Alkaline Phosphatase 71 Total Protein 7.5 Albumin 4.7 Globulin 2.8 Albumin/Globulin Ratio 1.7 Lipase 89 TSH Random Cortisol Urine Color Urine Appearance Urine pH Ur Specific [place] Urine Protein Urine Glucose (UA) Urine Ketones Urine Occult Blood Urine Nitrate Urine Bilirubin Urine Urobilinogen Ur Leukocyte Esterase Urine RBC Urine WBC Ur Squamous Epith Cells Urine Bacteria Ur Culture Indicated? Ur Random Sodium Nasal Screen MRSA (PCR) SARS-CoV-2 (PCR) 04/08/21 04/08/21 04/08/21 14:59 18:40 18:40 WBC RBC Hgb Hct MCV MCH MCHC RDW Plt Count Neut % (Auto) Lymph % (Auto) Lane % (Auto) Eos % (Auto) Baso % (Auto) Neut # (Auto) Lymph # (Auto) Lane # (Auto) Eos # (Auto) Baso # (Auto) Sodium 115 L* Potassium 3.7 Chloride 79 L Carbon Dioxide 29 BUN 8 Creatinine 0.47 L Estimated GFR > 60.0 BUN/Creatinine Ratio 17.0 Glucose 118 H Uric Acid 2.4 L Calcium 9.4 Phosphorus Magnesium Total Bilirubin AST ALT Alkaline Phosphatase Total Protein Albumin Globulin Albumin/Globulin Ratio Lipase TSH Random Cortisol Urine Color Urine Appearance Urine pH Ur Specific [place] Urine Protein Urine Glucose (UA) Urine Ketones Urine Occult Blood Urine Nitrate Urine Bilirubin Urine Urobilinogen Ur Leukocyte Esterase Urine RBC Urine WBC Ur Squamous Epith Cells Urine Bacteria Ur Culture Indicated? Ur Random Sodium Nasal Screen MRSA (PCR) SARS-CoV-2 (PCR) Negative 04/08/21 04/08/21 04/08/21 19:41 21:40 21:48 WBC RBC Hgb Hct MCV MCH MCHC RDW Plt Count Neut % (Auto) Lymph % (Auto) Lane % (Auto) Eos % (Auto) Baso % (Auto) Neut # (Auto) Lymph # (Auto) Lane # (Auto) Eos # (Auto) Baso # (Auto) Sodium 120 L Potassium 4.3 Chloride 80 L Carbon Dioxide 30 BUN 7 Creatinine 0.49 L Estimated GFR > 60.0 BUN/Creatinine Ratio 14.3 Glucose 133 H Uric Acid Calcium 9.4 Phosphorus Magnesium Total Bilirubin AST ALT Alkaline Phosphatase Total Protein Albumin Globulin Albumin/Globulin Ratio Lipase TSH Random Cortisol Urine Color Yellow Urine Appearance Clear Urine pH 7.5 Ur Specific [place] 1.010 Urine Protein Negative Urine Glucose (UA) Negative Urine Ketones Negative Urine Occult Blood Trace-lysed Urine Nitrate Negative Urine Bilirubin Negative Urine Urobilinogen 0.2 Ur Leukocyte Esterase Negative Urine RBC None seen Urine WBC None seen Ur Squamous Epith Cells 0-1 /hpf Urine Bacteria None seen Ur Culture Indicated? Cult not indicated Ur Random Sodium 32 Nasal Screen MRSA (PCR) SARS-CoV-2 (PCR) 04/09/21 04/09/21 04/09/21 00:28 03:01 03:01 WBC RBC Hgb Hct MCV MCH MCHC RDW Plt Count Neut % (Auto) Lymph % (Auto) Lane % (Auto) Eos % (Auto) Baso % (Auto) Neut # (Auto) Lymph # (Auto) Lane # (Auto) Eos # (Auto) Baso # (Auto) Sodium 121 L Potassium 3.5 Chloride 83 L Carbon Dioxide 29 BUN 7 Creatinine 0.49 L Estimated GFR > 60.0 BUN/Creatinine Ratio 14.3 Glucose 109 Uric Acid Calcium 9.2 Phosphorus Magnesium Total Bilirubin AST ALT Alkaline Phosphatase Total Protein Albumin Globulin Albumin/Globulin Ratio Lipase TSH 1.72 Random Cortisol 6.72 Urine Color Urine Appearance Urine pH Ur Specific [place] Urine Protein Urine Glucose (UA) Urine Ketones Urine Occult Blood Urine Nitrate Urine Bilirubin Urine Urobilinogen Ur Leukocyte Esterase Urine RBC Urine WBC Ur Squamous Epith Cells Urine Bacteria Ur Culture Indicated? Ur Random Sodium Nasal Screen MRSA (PCR) SARS-CoV-2 (PCR) 04/09/21 04/09/21 04/09/21 03:01 03:01 05:50 WBC RBC Hgb Hct MCV MCH MCHC RDW Plt Count Neut % (Auto) Lymph % (Auto) Lane % (Auto) Eos % (Auto) Baso % (Auto) Neut # (Auto) Lymph # (Auto) Lane # (Auto) Eos # (Auto) Baso # (Auto) Sodium 123 L 121 L Potassium 3.8 4.4 Chloride 83 L 84 L Carbon Dioxide 31 31 BUN 7 9 Creatinine 0.59 0.58 Estimated GFR > 60.0 > 60.0 BUN/Creatinine Ratio 11.9 15.5 Glucose 130 H 120 H Uric Acid Calcium 9.5 9.5 Phosphorus Magnesium 1.7 Total Bilirubin AST ALT Alkaline Phosphatase Total Protein Albumin Globulin Albumin/Globulin Ratio Lipase TSH Random Cortisol Urine Color Urine Appearance Urine pH Ur Specific [place] Urine Protein Urine Glucose (UA) Urine Ketones Urine Occult Blood Urine Nitrate Urine Bilirubin Urine Urobilinogen Ur Leukocyte Esterase Urine RBC Urine WBC Ur Squamous Epith Cells Urine Bacteria Ur Culture Indicated? Ur Random Sodium Nasal Screen MRSA (PCR) SARS-CoV-2 (PCR) 04/09/21 04/09/21 08:09 10:10 WBC RBC Hgb Hct MCV MCH MCHC RDW Plt Count Neut % (Auto) Lymph % (Auto) Lane % (Auto) Eos % (Auto) Baso % (Auto) Neut # (Auto) Lymph # (Auto) Lane # (Auto) Eos # (Auto) Baso # (Auto) Sodium 122 L Potassium 3.9 Chloride 84 L Carbon Dioxide 29 BUN 10 Creatinine 0.65 Estimated GFR > 60.0 BUN/Creatinine Ratio 15.4 Glucose 163 H Uric Acid Calcium 9.3 Phosphorus Magnesium Total Bilirubin AST ALT Alkaline Phosphatase Total Protein Albumin Globulin Albumin/Globulin Ratio Lipase TSH Random Cortisol Urine Color Urine Appearance Urine pH Ur Specific [place] Urine Protein Urine Glucose (UA) Urine Ketones Urine Occult Blood Urine Nitrate Urine Bilirubin Urine Urobilinogen Ur Leukocyte Esterase Urine RBC Urine WBC Ur Squamous Epith Cells Urine Bacteria Ur Culture Indicated? Ur Random Sodium Nasal Screen MRSA (PCR) Negative for mrsa SARS-CoV-2 (PCR) [facility] Medical History (Updated 04/08/21 @ 21:56 by Leann Morgan MD) Hypertension Peripheral neuropathy Type 2 diabetes mellitus Social History household members: none Smoking Status: Never smoker Assessment & Plan Assessment & Plan narrative: Ms. Vasquez is a 70W with PMH DM, HTN who presents with imbalance found to have severe hyponatremia 1. Severe symptomatic hyponatremia -patient appears mildly hypovolemic on exam, but not significantly so -most likely etiology is HCTZ, worsened hyponatremia in setting of poor nutrition intake -also consider SIADH -urine and sodium osms ordered, are sendout -initially on hypertonic saline infusion stopped, when sodium reached 123 -now allowing to self correct, and has stabilized, given quick correction no further correction planned through first 24 hours -check lytes q4 hours -hold hctz for now -cxray, CT head ordered to eval for possible etiology of SIADH 2. Type 2 Diabetes -hold metformin -ordered for insulin sliding scale 3. Hypertension -hold hctz -continue lisinopril 4. Diabetic peripheral neuropathy -continue gabapentin 5. UTI -macrobid was ordered as an outpatient -for now given dose of ceftriaxone today and tomorrow for 3 day course of antibiotics CODE: Full PROXY: Charu Villanuevas, family Dispo: inpatient, expected greater than 2 midnights due to severe hyponatremia I have utilized all available resources to review update, and confirm his current medications Time Spent With Patient Critical Care time: I spent a total of [] minutes of critical care time on this patient's care today; this time is exclusive of procedural time.
[2021-04-09 15:05] LABS: BUN Creatinine Ratio 19.3 (6-22); Blood Urea Nitrogen 11 mg/dL (7-17); Calcium 8.6 mg/dL (8.4-10.2); Carbon Dioxide 26 mmol/L (22-32); Chloride 90 mmol/L (98-107); Estimated Glomerular Filt Rate > 60.0 mL/min (>60); Glucose 138 mg/dL (80-110); HEMOLYSIS < 15 (0-50); Potassium 3.3 mmol/L (3.4-5.1); Sodium 123 mmol/L (137-145)
--- NOTE | 2021-04-09 16:00 | OT.IP.EVAL ---
Current Diagnoses Type 2 diabetes mellitus without complications (04/08/21) Hypo-osmolality and hyponatremia (04/08/21) Essential (primary) hypertension (04/08/21) Urinary tract infection, site not specified (04/08/21) Other fatigue (04/08/21) Past Medical History (Last Updated 04/08/21 @ 21:42 by Leann Morgan MD) Hypertension Peripheral neuropathy Type 2 diabetes mellitus Occupational Therapy Inpatient Evaluation/Re-Eval M1 PT/OT-IP Prior Functional Status Start: 04/09/21 12:12 Freq: NEEDED Status: Active Protocol: Document 04/09/21 16:04 [facility] (Rec: 04/09/21 16:36 [facility] [id number]) Medical Review Prior Functional Status Medical History Reviewed Yes Communication able to make needs known Mobility and Gait pt stated that she is independent with all mobilities and ambulation without AD Activities of Daily Living and IADL's Pt states independent with all needs of ADl's,IADl's, drives and take care of her dog and cat. Social History Household Members none Living Arrangements Mobile home Number of Floors (Floors) One Floor Number of Stairs To Enter/Railing? 2 steps to enter with L rail ascending and R side wall Home Environment High Toilet,Tub/Shower Home Equipment Hand Held Shower Additional Social History Comment stated that her cousin has a walker for her to use but do not what kind M2 OT-IP Current Condition Start: 04/09/21 16:04 Freq: Status: Active Protocol: Document 04/09/21 16:04 [facility] (Rec: 04/09/21 16:36 [facility] [id number]) Occupational Therapy Current Condition Current Condition Evaluation Date 04/09/21 Treatment Diagnosis Hypoatremia, decreased mobility Diagnosis Onset Date 04/08/21 M3 OT- IP Subjective and Pain Start: 04/09/21 16:04 Freq: Status: Active Protocol: Document 04/09/21 16:04 [facility] (Rec: 04/09/21 16:36 [facility] [id number]) OT- Subjective Occupational Therapy Visit Type Type Initial Evaluation Visit Start Time 15:16 Visit Stop Time 16:00 Total Visit Minutes 44 Occupational Therapy Visit Comments Patient Comments Pt willing to work with OT for Ot eval. Patient/Caregiver Goals Pt is adamant to go home. OT Pain Assessment Pain When Pain Assessed At Rest Pain Present Pain Present Pain Reported Location bilat flank pain Intensity 2 Scale Used Numeric (0 - 10) M4 OT- IP ADL's Start: 04/09/21 16:04 Freq: Status: Active Protocol: Document 04/09/21 16:04 [facility] (Rec: 04/09/21 16:36 [facility] [id number]) OT [id number] Comments OT Self-Feeding Comments Not at meal time. OT ADL-Grooming Comments OT Grooming Comments Pt states did earlier. OT ADL-Dressing General Eval Lower Body Dressing Ability Standby Assistance Comments OT Dressing Comments Pt able to sit and wendy/doff her socks and shoes on her own . OT ADL-Toileting Comments OT Toileting Comments Pt not having to go to the bathroom at this time. OT ADL-Bathing Bathing Type Bathing Type Shower Comments OT Bathing Comments Pt states the aid assisted her to shower and that the pt had to hold the grab bar while standing to do her pericare needs otherwise did most of the bathing needs while seated . M5 OT- IP IADL's Start: 04/09/21 16:04 Freq: Status: Active Protocol: Document 04/09/21 16:04 [facility] (Rec: 04/09/21 16:36 [facility] [id number]) OT-Instrumental Activities of Daily Living Home Safety Awareness Awareness of Need for Assistance at Home Decreased Awareness Home Safety Comments Pt decreased safety awareness at this time for needs ADL's and mobility, continue to assess as pt's sodium level improves. If pt going to go home best to have someone stay 24/7 with her initially for safety. Medication Management Medication Management Comments Pt states uses a pill organizer that she fills every Wednesday for the week. Money Management Money Management Comments Pt states does mostly automatic payments. Meal Preparation Meal Preparation Comments Due to decreased balance, safety awareness and impulsivity pt would benefit from assist at home. Landfill Gas Technician Landfill Gas Technician Comments Due to decreased balance, safety awareness and impulsivity pt woudl benefit from assist at home. Driving Driving Concerns Identified Regarding Safety Driving Comments See below M6 OT- IP Functional Cognition Start: 04/09/21 16:04 Freq: Status: Active Protocol: Document 04/09/21 16:04 [facility] (Rec: 04/09/21 16:36 [facility] [id number]) Cognitive Factors Limiting Selfcare Function Cognitive Ability Level of Alertness Alert Patient Orientation Name,Age,Birthday,Month,Date, Year,Day of Week,Place, Situation Attention Span Ability Capable of Focused Attention, Capable of Sustained Attention Ability to Follow Commands Able to Follow One Step Commands Safety Awareness Underestimates Need for Assistance Executive Function Ability Unable to Filter Distractions Cognitive Comments Cognitive Assessment Comments Pt scored 101 seconds on [place] Making Part B which implies mild to moderate impairments for visual attention, task switching, speed of processing, executive functioning, and mental flexibility. Her score is at 40% for her age. Pt's score may be affected by low sodium levels therefore to retest again to compare the results as her sodium improves. Pt is impulsive and decreased safety awareness. Pt does not realize that she crosses her feet over each other while walking with FWW. Pt admits to having falls at home and attributes to most of her fall to not paying attention or being in a mason. If pt insisting on going home, best to have someone stay and assist the pt at home. OT- Vision and Hearing OT- Vision Assessment Vision Assessment Comments Pt has driving glasses. M7 OT- IP Mobility and Balance Start: 04/09/21 16:04 Freq: Status: Active Protocol: Document 04/09/21 16:04 [facility] (Rec: 04/09/21 16:36 [facility] [id number]) OT-Transfer Assessment Sit to and From Stand Sit to and from Stand Contact Guard Assistance Transfers Transfer Ability Contact Guard Assistance, Minimal Assistance,Moderate Assistance Technique Transfer Destination Bed Transfer Technique Stand Step Pivot Devices Transfer Assistive Devices None,Gait Belt,Front Wheeled Walker Comments Mobility Comments Pt without FWW MODA for balance and tends to hold to objects due to decreased balance. Pt with FWW and no shoes SALINA and with shoes on CGA to close SBA. Pt states she has trouble feeling her feet and feel that she has to slap the floor with her feet when she walks. OT- Balance Assessment Sitting Balance and Reactions Static Sitting Balance Ability Good Dynamic Sitting Balance Ability Good Standing Balance and Reactions Static Standing Balance Ability Fair Dynamic Standing Balance Ability Poor M8 OT- IP Objective Assessments Start: 04/09/21 16:04 Freq: Status: Active Protocol: Document 04/09/21 16:04 [facility] (Rec: 04/09/21 16:36 [facility] [id number]) OT Gross Range of Motion Upper Extremity Range of Motion ROM Impairments grossly WFL OT Strength Comments Strength Comments WFL for needs of ADl's OT- Coordination Assessment Upper Extremity Finger to Nose Test Within Functional Limits OT-Muscle Tone Assessment Muscle Tone WNL Yes M9 OT- IP Assessment and Plan Start: 04/09/21 16:04 Freq: Status: Active Protocol: Document 04/09/21 16:04 [facility] (Rec: 04/09/21 16:36 [facility] [id number]) OT Summary Assessment and Plan Potential Rehabilitation Potential Good Analytic Complexity at Evaluation Moderate Summary OT Impairments Pain,Balance,Functional Cognition,Functional Mobility, Grooming,Dressing,Toileting, Bathing,Toilet Transfers, Shower Transfers Progress Towards Goals Slow Progress due to Medical Issues,Slow Progress due to Activity Tolerance,Slow Progress due to Cognition Assessment Summary Pt here due to hypoatremia and at this time is impulsive, decreased safety awareness, decreased balance and insight to her needs as pt is insistent on going home. If pt going home would benefit from 24/7 assist at this time and home health. Pt may benefit from short skilled stay pending progress. Goals Self-Feeding Goal Independent Grooming Goal Independent Dressing Goal Independent Toileting Goal Independent Bathing Goal Independent Toilet Transfer Goal Independent Shower Transfer Goal Independent OT-Other Goals Pt to be able to incorporate fall preventions strategies on a daily basis. Days to Meet Goals 10 Frequency of Treatment Frequency Of Treatment Once a Day Treatment Plan OT Treatment Plan ADL Training,Functional Cognition Training,Functional Mobility,Patient/Family Education,Discharge Planning Other Treatment Recommendations and Next Redo [place] Making B, SLUMS Treatment Focus Discharge Recommendations OT Discharge Recommendations Home with 24/7 Assist Available,Home Health,SNF Rehab,Home vs SNF Home Equipment Needs shower chair,FWW Transportation Needs at Discharge Private Vehicle,Wheelchair/ Cabulance
[2021-04-09] MEDS: POTASSIUM CHLORIDE 20 MEQ TAB 40 MEQ PO (16:24)
[2021-04-09 18:42] LABS: Blood Urea Nitrogen 17 mg/dL (7-17); Calcium 9.5 mg/dL (8.4-10.2); Carbon Dioxide 27 mmol/L (22-32); Chloride 85 mmol/L (98-107); Estimated Glomerular Filt Rate > 60.0 mL/min (>60); Glucose 155 mg/dL (80-110); HEMOLYSIS 41 (0-50); Potassium 4.3 mmol/L (3.4-5.1); Sodium 121 mmol/L (137-145)
[2021-04-09] MEDS: GABAPENTIN 600 MG TABLET 1200 MG PO (20:40)
[2021-04-09] MEDS: cefTRIAXone 1,000 MG in SODIUM CHLORIDE 0.9% 100 ML 200 ML IV (20:41)
[2021-04-09 21:11] LABS: BUN Creatinine Ratio 28.4 (6-22); Blood Urea Nitrogen 19 mg/dL (7-17); Calcium 9.5 mg/dL (8.4-10.2); Carbon Dioxide 28 mmol/L (22-32); Chloride 86 mmol/L (98-107); Estimated Glomerular Filt Rate > 60.0 mL/min (>60); Glucose 127 mg/dL (80-110); HEMOLYSIS < 15 (0-50); Potassium 4.4 mmol/L (3.4-5.1); Sodium 121 mmol/L (137-145)
[2021-04-10] VITALS (13 sets, daily range): BP systolic 115–165; BP diastolic 55–87; PULSE 64–77; RESP 14–23; TEMP 35.9–36.4; O2SAT 96–99
[2021-04-10] MEDS: ACETAMINOPHEN 325 MG TABLET 650 MG PO ×3 (00:47→18:38)
[2021-04-10 03:55] LABS: BUN Creatinine Ratio 29.8 (6-22); Blood Urea Nitrogen 17 mg/dL (7-17); Calcium 9.3 mg/dL (8.4-10.2); Carbon Dioxide 28 mmol/L (22-32); Chloride 88 mmol/L (98-107); Estimated Glomerular Filt Rate > 60.0 mL/min (>60); Glucose 130 mg/dL (80-110); HEMOLYSIS 17 (0-50); Potassium 4.1 mmol/L (3.4-5.1); Sodium 124 mmol/L (137-145)
[2021-04-10 06:16] LABS: BUN Creatinine Ratio 30.4 (6-22); Blood Urea Nitrogen 17 mg/dL (7-17); Calcium 9.3 mg/dL (8.4-10.2); Carbon Dioxide 27 mmol/L (22-32); Chloride 91 mmol/L (98-107); Estimated Glomerular Filt Rate > 60.0 mL/min (>60); Glucose 123 mg/dL (80-110); HEMOLYSIS 18 (0-50); Potassium 4.4 mmol/L (3.4-5.1); Sodium 124 mmol/L (137-145)
--- NOTE | 2021-04-10 08:30 | CM.MNRNOTE ---
Day shift: Pt is now under this writers care. She is here from room 228 ICU. She is now in room 203. She is A&Ox4. Sitting in chair for breakfast. Oriented to room and call light. Call light in reach. Will continue w/ plan of care.
[2021-04-10] MEDS: lisinopriL 20 MG TABLET PO (09:27)
[2021-04-10] MEDS: GABAPENTIN 600 MG TABLET PO (09:27)
[2021-04-10] MEDS: ENOXAPARIN 40 MG/0.4 ML SYRINGE SUBCUT (09:27)
[2021-04-10] MEDS: SODIUM CHLORIDE 1,000 MG TABLET 1000 MG PO ×3 (09:28→20:05)
[2021-04-10] MEDS: SODIUM CHLORIDE 0.9% FLUSH 10 ML IV ×2 (10:03→14:31)
--- NOTE | 2021-04-10 10:03 | OT.IP.TRT ---
Current Diagnoses Type 2 diabetes mellitus without complications (04/08/21) Hypo-osmolality and hyponatremia (04/08/21) Essential (primary) hypertension (04/08/21) Urinary tract infection, site not specified (04/08/21) Other fatigue (04/08/21) Occupational Therapy Treatment Note M2 OT-IP Current Condition Start: 04/09/21 16:04 Freq: Status: Active Protocol: Document 04/09/21 16:04 [facility] (Rec: 04/09/21 16:36 [facility] [id number]) Occupational Therapy Current Condition Current Condition Evaluation Date 04/09/21 Treatment Diagnosis Hypoatremia, decreased mobility Diagnosis Onset Date 04/08/21 M3 OT- IP Subjective and Pain Start: 04/09/21 16:04 Freq: Status: Active Protocol: Document 04/10/21 11:11 [facility] (Rec: 04/10/21 11:28 [facility] [id number]) OT- Subjective Occupational Therapy Visit Type Type Treatment Note Visit Start Time 09:40 Visit Stop Time 10:03 Total Visit Minutes 23 Occupational Therapy Visit Comments Patient Comments Pt agreed to work with OT. Patient/Caregiver Goals TO go home. OT Pain Assessment Pain When Pain Assessed At Rest Pain Present Pain Present Pain Reported Location bilat flank pain Intensity 3 Scale Used Numeric (0 - 10) M4 OT- IP ADL's Start: 04/09/21 16:04 Freq: Status: Active Protocol: Document 04/10/21 11:11 [facility] (Rec: 04/10/21 11:28 [facility] [id number]) OT [id number] General Evaluation Self-Feeding Ability Independent OT ADL-Grooming General Evaluation Grooming Ability Independent OT ADL-Oral Care General Eval Oral Care Ability Independent OT ADL-Dressing General Eval Lower Body Dressing Ability Independent Comments OT Dressing Comments Pt able to sit and wendy/doff her socks and shoes on her own . OT ADL-Toileting Comments OT Toileting Comments Pt not having to go to the bathroom at this time. OT ADL-Bathing Comments OT Bathing Comments Not performed. M6 OT- IP Functional Cognition Start: 04/09/21 16:04 Freq: Status: Active Protocol: Document 04/10/21 11:11 [facility] (Rec: 04/10/21 11:28 [facility] [id number]) Cognitive Factors Limiting Selfcare Function Cognitive Comments Cognitive Assessment Comments Pt much improved with [place] Making Part B, a score of 73 second and now implies normal but not perfect for cognitive needs. Pt continues to need vc for safety awareness whilc walking and use of FWW. M7 OT- IP Mobility and Balance Start: 04/09/21 16:04 Freq: Status: Active Protocol: Document 04/10/21 11:11 [facility] (Rec: 04/10/21 11:28 [facility] [id number]) OT-Transfer Assessment Sit to and From Stand Sit to and from Stand Standby Assistance Transfers Transfer Ability Contact Guard Assistance Technique Transfer Destination Chair Transfer Technique Stand Step Pivot Devices Transfer Assistive Devices Gait Belt,Front Wheeled Walker Comments Mobility Comments Pt is CGA for balance and tends to cross her feet over at times. Pt needing cues to have the FWW in front of her at all times. OT- Balance Assessment Sitting Balance and Reactions Static Sitting Balance Ability Good Dynamic Sitting Balance Ability Good Standing Balance and Reactions Static Standing Balance Ability Fair Dynamic Standing Balance Ability Poor M8 OT- IP Objective Assessments Start: 04/09/21 16:04 Freq: Status: Active Protocol: Document 04/09/21 16:04 [facility] (Rec: 04/09/21 16:36 [facility] [id number]) OT Gross Range of Motion Upper Extremity Range of Motion ROM Impairments grossly WFL OT Strength Comments Strength Comments WFL for needs of ADl's OT- Coordination Assessment Upper Extremity Finger to Nose Test Within Functional Limits OT-Muscle Tone Assessment Muscle Tone WNL Yes M9 OT- IP Assessment and Plan Start: 04/09/21 16:04 Freq: Status: Active Protocol: Document 04/10/21 11:11 [facility] (Rec: 04/10/21 11:28 [facility] [id number]) OT Summary Assessment and Plan Potential Rehabilitation Potential Good Analytic Complexity at Evaluation Moderate Summary OT Impairments Pain,Balance,Functional Cognition,Functional Mobility, Grooming,Dressing,Toileting, Bathing,Toilet Transfers, Shower Transfers Progress Towards Goals Slow Progress due to Medical Issues Assessment Summary Pt still having low sodium numbers and main barriers are decreased safety awareness and dynamic standing balance. However later after seeing PT after OT session, pt now open to having family stay with her a few days and also to have home health. Goals Toileting Goal Independent Bathing Goal Independent Toilet Transfer Goal Independent Shower Transfer Goal Independent Days to Meet Goals 7 Frequency of Treatment Frequency Of Treatment Once a Day Treatment Plan OT Treatment Plan ADL Training,Functional Cognition Training,Functional Mobility,Patient/Family Education,Discharge Planning Other Treatment Recommendations and Next Shower Treatment Focus Discharge Recommendations OT Discharge Recommendations Home with 24/ Assist Available,Home Health Home Equipment Needs shower chair,FWW Transportation Needs at Discharge Private Vehicle
--- NOTE | 2021-04-10 11:05 | PT.IPTN ---
Current Diagnoses Type 2 diabetes mellitus without complications (04/08/21) Hypo-osmolality and hyponatremia (04/08/21) Essential (primary) hypertension (04/08/21) Urinary tract infection, site not specified (04/08/21) Other fatigue (04/08/21) Physical Therapy Treatment Note M2 PT-IP Current Condition Start: 04/09/21 12:12 Freq: NEEDED Status: Active Protocol: Document 04/09/21 10:55 [facility] (Rec: 04/09/21 12:27 [facility] [id number]) Physical Therapy Current Condition Current Condition Evaluation Date 04/09/21 Treatment Diagnosis hyponatremia; difficulty in walking Onset Date 04/08/21 M3 PT-IP Subjective Start: 04/09/21 12:12 Freq: NEEDED Status: Active Protocol: Document 04/10/21 11:05 [facility] (Rec: 04/10/21 13:04 AW [id number]) Subjective Physical Therapy Visit Type Type Treatment Note Visit Start Time 10:40 Visit Stop Time 11:05 Total Visit Minutes 25 Number of BURIAL VAULT SETTER Visits 0 Physical Therapy Visit Comments Patient Comments agreeable to do PT Therapy Pain Assessment Pain When Pain Assessed During Mobility Location bilat flank pain Scale Used not quantified Pain Management Techniques Distraction,Modification of Treatment M4 PT-IP Mobility and Gait Start: 04/09/21 12:12 Freq: NEEDED Status: Active Protocol: Document 04/10/21 11:05 [facility] (Rec: 04/10/21 13:04 [facility] [id number]) PT-Transfer Assessment Sit to and From Stand Sit to and from Stand Standby Assistance,Use of Upper Extremities Equipment Transfer Assistive Device Gait Belt,Front Wheeled Walker Orthotic/Prosthetic Devices or Brace: No Transfers Transfer Destination Chair Transfer Technique ambulated with FWW Transfer Ability Level of Assist Standby Assistance,Use of Upper Extremities Comments Mobility Comments Pt was sitting up on chair as PT arrived. She agreed to mobilize, rising from the chair SBA. She used the FWW to ambulate in the halls SBA to CGA (due to excess RLE adduction and intermittent B foot drag). Pt required extra assist up to CGA especially during turns. She did respond well to attend to her step width but required repeated cues. She transferred back to the chair SBA and was left with call light and tray table in reach. Gait Assessment Gait Gait Assistance Required: Standby Assistance,Contact Guard Assist Distance (Feet) 180 Able to Maintain Weight Bearing Status Yes During Gait Assistive Devices Assistive Device Gait Belt,Front Wheeled Walker Orthotic/Prosthetic Devices or Brace: No Gait Deviations General Gait Pattern Ataxic,Decreased Stride Length ,Decreased Feet Clearance, Flexed Trunk,Narrow Based Gait ,Step-to Gait Factors Limiting Gait Function Factors Limiting Gait Function Decreased Activity Tolerance, Decreased Strength,Difficulty Following Directions,Limited Range of Motion,Pain,Poor Balance,Poor Safety Awareness Comments Gait Comments See mobility comments for details. Pt was impulsive in gait, needing cues to attend to step width to avoid scissoring gait especially during turns. Stair Climbing Assessment Evaluation Level of Assist On Stairs Standby Assistance Devices Stair Climbing Assistive Devices Left Railing,Right Railing Technique/Endurance Stair Climbing Direction Ascend and Descend Stair Climbing Technique Step Over Step Number of Steps Climbed 3 Stair Climbing Set # Repetitions (reps) 2 Comments Stair Climbing Comments Pt states she has left rail and can contact the house on opposite side at home. PT-Balance Assessment Sitting Balance and Reactions Static Sitting Balance Ability Good Dynamic Sitting Balance Ability Good Standing Balance and Reactions Static Standing Balance Ability Fair Dynamic Standing Balance Ability Poor Device Used FWW M5 PT-IP Objective Assessments Start: 04/09/21 12:12 Freq: NEEDED Status: Active Protocol: Document 04/09/21 10:55 [facility] (Rec: 04/09/21 12:27 [facility] [id number]) Orientation Orientation/Cognition Level of Alertness Alert Orientation Name,Place,Situation Language Function Ability No Deficits Noted Safety Awareness Decreased Safety Awareness Memory Description No Deficits Noted Gross Range of Motion Lower Extremity ROM Assessment Within Functional Limits Strength Lower Extremity Strength Hip 3+/5 Knee 3+/5 Sensation Assessment Sensation Gross Sensation Left LE Impaired Sensation Description Numbness,Tingling Comments Sensation Comments B feet neuropathy Muscle Tone Muscle Tone WNL Yes M6 PT-IP Treatment Start: 04/09/21 12:12 Freq: NEEDED Status: Active Protocol: Document 04/10/21 11:05 [facility] (Rec: 04/10/21 13:04 AW [id number]) Physical Therapy Treatment Education Education Provided Safety Other Treatments Other Treatment Performed Frequent cues to slow down, keep feet within walker frame, and manage step width to avoid excessive adduction. M7 PT-IP Assessment and Plan Start: 04/09/21 12:12 Freq: NEEDED Status: Active Protocol: Document 04/10/21 11:05 [facility] (Rec: 04/10/21 13:04 AW [id number]) PT Summary Assessment and Plan Summary Progress Towards Goals Slow Progress due to Activity Tolerance,Slow Progress - Other Assessment Summary Pt requires SBA to CGA for ambulation with FWW. Frequent cues were needed for pacing and for step width to avoid scissoring. She has been able to obtain a walker. Her cousin is able to stay a few nights at discharge, and pt is open to home health services. Goals Bed Mobility Goal Independent Transfer Goal Independent,Front Wheeled Walker Gait Goal Independent,Front Wheel Walker Gait Distance 250 Other Goals ambualtion with least restrictive AD/without AD 300 ft SBA up/down 2 steps L rail SBA Days to Meet Goals 10 Frequency of Treatment Frequency Of Treatment Once a Day Treatment Plan Physical Therapy Treatment Plan Bed Mobility Training,Transfer Training,Gait Training, Therapeutic Exercise,Balance Retraining,Post Op Education, Discharge Planning,Hot or Cold Pack,Neuromuscular Re-ed, Coordination Retraining,Manual Therapy Recommendations To Nursing Amount of Assist Needed Standby Assistance Discharge Recommendations PT Discharge Recommendations Home with Assistance,Home Health,SNF Rehab,Home vs SNF Transportation Needs at Discharge Private Vehicle
[2021-04-10 11:09] LABS: Osmolality, Serum 240 mOsmol/kg (280-301)
[2021-04-10 11:09] LABS: Osmolality Urine 172 mOsmol/kg (.)
--- NOTE | 2021-04-10 13:53 | CM.DPC ---
DCP Note SUGGESTION CLERK reviews patient with RN, it is reported that patient will likely stay until tomorrow due to low sodium levels. SUGGESTION CLERK meets with patient at bedside. Patient is A/Ox4, patient endorses she is feeling a lot better today. Patient endorses she hopes to d/c to home tomorrow. Patient endorses that her cousin his caring for her dog and cat right now and he plans to stay with her upon d/c to home a few nights. Patient endorses that he lives in [place] and patient's brother and sister in law reside in [place] and plan to check in with patient as well. Patient endorses she retired in December 2020 and she lost her 6 years ago. Patient endorses that she recently moved back to the [facility] recently after she retired in [place]. Patient endorses she is from [place] and returned to [place] to be near family. Patient endorses that her cousin and brother will drive for her the first few days of her return home if needed. Patient endorses her PCP is Sonia Spaulding PA-C at the [facility] in [place]. Patient endorses that she established care with PCP due to her need rx for diabetes, blood pressure medication and neuropathy. Patient endorses she will schedule f/u PCP visit in the next few days when she knows she is discharging from the hospital. SUGGESTION CLERK discusses the option of HH, patient endorses that she does not want to pursue it if it is not necessary. SUGGESTION CLERK discussed it as an option and encouraged patient to have close family f/u and continue to have her cousin stay with her upon d/c. Patient endorses her independence with ADLs and her plan to maintain her good health. Plan: Patient to d/c to home when medically clear with PCP f/u and family residing at home with her the next few days upon d/c to home. KARISHMA Reza
--- NOTE | 2021-04-10 14:24 | PM.PN.1 ---
Subjective Subjective Date Patient Seen: 04/10/21 Time Patient Seen: 08:00 Interval history: Today she feels much improved. She still feels slightly weak, but much better than previously. She is hoping to go home tomorrow. Exam Vital Signs (past 8 hours): - 04/10/21 08:40 04/10/21 12:00 Temperature 96.7 F L 96.7 F L Pulse Rate 74 76 Respiratory Rate 16 16 Blood Pressure 128/55 L 125/58 L Pulse Oximetry 97 96 Oxygen Delivery Method Room Air Oxygen Flow Rate 0 Narrative Exam Narrative: GEN: no acute distress HEENT: moist mucous membranes, PERRL NECK: trachea midline, no JVD CV: regular rate and rhythm, no murmurs PULM: clear bilaterally, no wheezes, rhonchi, rales ABD: soft, nontender, nondistended, no organomegaly, normal bowel sounds EXT: warm and well perfused with no edema NEURO: awake alert and oriented, with no focal deficits noted PSYCH: pleasant, cooperative Objective Labs Result Diagrams: 04/08/21 14:55 04/10/21 06:00 Labs: Laboratory Results - last 24 hr 04/08/21 04/08/21 04/09/21 18:40 19:41 14:00 Sodium 123 L Potassium 3.3 L Chloride 90 L Carbon Dioxide 26 BUN 11 Creatinine 0.57 Estimated GFR > 60.0 BUN/Creatinine Ratio 19.3 Glucose 138 H Serum Osmolality 240 L Calcium 8.6 Urine Osmolality 172 04/09/21 04/09/21 04/10/21 18:00 20:50 01:30 Sodium 121 L 121 L 124 L Potassium 4.3 4.4 4.1 Chloride 85 L 86 L 88 L Carbon Dioxide 27 28 28 BUN 17 19 H 17 Creatinine 0.63 0.67 0.57 Estimated GFR > 60.0 > 60.0 > 60.0 BUN/Creatinine Ratio 27.0 H 28.4 H 29.8 H Glucose 155 H 127 H 130 H Serum Osmolality Calcium 9.5 9.5 9.3 Urine Osmolality 04/10/21 06:00 Sodium 124 L Potassium 4.4 Chloride 91 L Carbon Dioxide 27 BUN 17 Creatinine 0.56 Estimated GFR > 60.0 BUN/Creatinine Ratio 30.4 H Glucose 123 H Serum Osmolality Calcium 9.3 Urine Osmolality [facility] Medical History (Updated 10/19/21 @ 21:56 by Leann Morgan MD) Hypertension Peripheral neuropathy Type 2 diabetes mellitus Social History household members: none Smoking Status: Never smoker Assessment & Plan Assessment & Plan narrative: Ms. Vasquez is a 70W with PMH DM, HTN who presents with imbalance found to have severe hyponatremia 1. Severe symptomatic hyponatremia -patient appears mildly hypovolemic on exam, but not significantly so -most likely multifactorial etiologywith HCTZ, worsened hyponatremia in setting of poor nutrition intake and likely SIADH -urine and sodium osms ordered, are sendout -initially on hypertonic saline infusion stopped, when sodium reached 123 -now allowing to self correct, and has stabilized, given quick correction no further correction planned through first 24 hours -check lytes q6 hours -hold hctz for now -cxray, CT head ordered to eval for possible etiology of SIADH and showed no acute process -started salt tabs 2. Type 2 Diabetes -hold metformin -ordered for insulin sliding scale 3. Hypertension -hold hctz -continue lisinopril 4. Diabetic peripheral neuropathy -continue gabapentin 5. UTI -macrobid was ordered as an outpatient -for now given dose of ceftriaxone today and tomorrow for 3 day course of antibiotics CODE: Full PROXY: Charu Villanuevas, family Dispo: inpatient, expected greater than 2 midnights due to severe hyponatremia I have utilized all available resources to review update, and confirm his current medications Time Spent With Patient Critical Care time: I spent a total of [] minutes of critical care time on this patient's care today; this time is exclusive of procedural time.
[2021-04-10 14:59] LABS: BUN Creatinine Ratio 36.4 (6-22); Blood Urea Nitrogen 20 mg/dL (7-17); Calcium 8.7 mg/dL (8.4-10.2); Carbon Dioxide 25 mmol/L (22-32); Chloride 92 mmol/L (98-107); Estimated Glomerular Filt Rate > 60.0 mL/min (>60); Glucose 152 mg/dL (80-110); HEMOLYSIS < 15 (0-50); Sodium 125 mmol/L (137-145)
[2021-04-10 18:32] LABS: Blood Urea Nitrogen 18 mg/dL (7-17); Calcium 8.9 mg/dL (8.4-10.2); Carbon Dioxide 24 mmol/L (22-32); Chloride 92 mmol/L (98-107); Estimated Glomerular Filt Rate > 60.0 mL/min (>60); Glucose 130 mg/dL (80-110); HEMOLYSIS < 15 (0-50); Potassium 4.4 mmol/L (3.4-5.1); Sodium 124 mmol/L (137-145)
[2021-04-10] MEDS: cefTRIAXone 1,000 MG in SODIUM CHLORIDE 0.9% 100 ML 200 ML IV (19:32)
[2021-04-10] MEDS: GABAPENTIN 600 MG TABLET 1200 MG PO (20:05)
[2021-04-10] MEDS: ONDANSETRON 4 MG/2 ML INJ IV (20:40)
[2021-04-11 02:27] VITALS: BP 146/76; PULSE 69; RESP 14; TEMP 36.8; O2SAT 98
[2021-04-11 05:25] VITALS: BP 114/44; PULSE 71; RESP 12; TEMP 36.4; O2SAT 97
[2021-04-11] MEDS: ACETAMINOPHEN 325 MG TABLET 650 MG PO (05:52)
[2021-04-11 06:01] LABS: BUN Creatinine Ratio 25.4 (6-22); Blood Urea Nitrogen 15 mg/dL (7-17); Calcium 9.2 mg/dL (8.4-10.2); Carbon Dioxide 30 mmol/L (22-32); Chloride 92 mmol/L (98-107); Estimated Glomerular Filt Rate > 60.0 mL/min (>60); Glucose 128 mg/dL (80-110); HEMOLYSIS < 15 (0-50); Potassium 4.7 mmol/L (3.4-5.1); Sodium 128 mmol/L (137-145)
[2021-04-11 08:43] VITALS: BP 156/73; PULSE 64; RESP 16; TEMP 35.5; O2SAT 98
--- NOTE | 2021-04-11 08:45 | OT.IP.TRT ---
Current Diagnoses Type 2 diabetes mellitus without complications (04/08/21) Hypo-osmolality and hyponatremia (04/08/21) Essential (primary) hypertension (04/08/21) Urinary tract infection, site not specified (04/08/21) Other fatigue (04/08/21) Occupational Therapy Treatment Note M2 OT-IP Current Condition Start: 04/09/21 16:04 Freq: Status: Active Protocol: Document 04/09/21 16:04 [facility] (Rec: 04/09/21 16:36 [facility] [id number]) Occupational Therapy Current Condition Current Condition Evaluation Date 04/09/21 Treatment Diagnosis Hypoatremia, decreased mobility Diagnosis Onset Date 04/08/21 M3 OT- IP Subjective and Pain Start: 04/09/21 16:04 Freq: Status: Active Protocol: Document 04/11/21 09:07 [facility] (Rec: 04/11/21 09:27 [facility] [id number]) OT- Subjective Occupational Therapy Visit Type Type Treatment Note Visit Start Time 08:45 Visit Stop Time 09:03 Total Visit Minutes 18 Occupational Therapy Visit Comments Patient Comments Pt not wanting to shower as just showered last night. Patient/Caregiver Goals TO go home. OT Pain Assessment Pain When Pain Assessed At Rest Pain Present Pain Present Pain Reported M4 OT- IP ADL's Start: 04/09/21 16:04 Freq: Status: Active Protocol: Document 04/11/21 09:07 [facility] (Rec: 04/11/21 09:27 [facility] [id number]) OT [id number] General Evaluation Self-Feeding Ability Independent OT ADL-Grooming General Evaluation Grooming Ability Independent Comments OT Grooming Comments Pt able to stand with FWW to do all her grooming needs. OT ADL-Oral Care General Eval Oral Care Ability Independent OT ADL-Dressing General Eval Lower Body Dressing Ability Independent Comments OT Dressing Comments Pt able to sit and wendy/doff her socks and shoes on her own . OT ADL-Toileting Comments OT Toileting Comments Pt not having to go to the bathroom at this time. M6 OT- IP Functional Cognition Start: 04/09/21 16:04 Freq: Status: Active Protocol: Document 04/11/21 09:07 [facility] (Rec: 04/11/21 09:27 [facility] [id number]) Cognitive Factors Limiting Selfcare Function Cognitive Comments Cognitive Assessment Comments Pt appears back to baseline for cognitive needs. Pt is now mindful of trying not to cross her feet when she walks. Pt already thinking of ways to make it easier for herself at home. Pt also states to have her cousin stay with her when she gets home for the first few days and that she will not drive right away. M7 OT- IP Mobility and Balance Start: 04/09/21 16:04 Freq: Status: Active Protocol: Document 04/11/21 09:07 [facility] (Rec: 04/11/21 09:27 [facility] [id number]) OT-Transfer Assessment Sit to and From Stand Sit to and from Stand Standby Assistance Transfers Transfer Ability Standby Assistance Technique Transfer Destination Bed,Chair Transfer Technique Stand Step Pivot Devices Transfer Assistive Devices None,Gait Belt,Front Wheeled Walker Comments Mobility Comments Pt now SBA with FWW, still tends to move fast and a little unsteady on her feet but did not lose her balance. Attempted pt to transfer to and from the recliner to bed and has to use hands on the recliner for steadying as unsteady on her feet and realizes will be using the FWW initially for now. OT- Balance Assessment Sitting Balance and Reactions Static Sitting Balance Ability Normal Dynamic Sitting Balance Ability Normal Standing Balance and Reactions Static Standing Balance Ability Fair Dynamic Standing Balance Ability Poor Comments Other Balance Tests/Deviations/Treatment Balance without FWW : M8 OT- IP Objective Assessments Start: 04/09/21 16:04 Freq: Status: Active Protocol: Document 04/09/21 16:04 [facility] (Rec: 04/09/21 16:36 [facility] [id number]) OT Gross Range of Motion Upper Extremity Range of Motion ROM Impairments grossly WFL OT Strength Comments Strength Comments WFL for needs of ADl's OT- Coordination Assessment Upper Extremity Finger to Nose Test Within Functional Limits OT-Muscle Tone Assessment Muscle Tone WNL Yes M9 OT- IP Assessment and Plan Start: 04/09/21 16:04 Freq: Status: Active Protocol: Document 04/11/21 09:07 [facility] (Rec: 04/11/21 09:27 [facility] [id number]) OT Summary Assessment and Plan Potential Rehabilitation Potential Good Analytic Complexity at Evaluation Moderate Summary OT Impairments Pain,Balance,Functional Mobility,Toileting,Bathing, Shower Transfers Progress Towards Goals Progressing Toward Goals Assessment Summary Pt appears back to baseline for cognitive needs and mainly still a little unsteady on her feet and needing to use a FWW. Pt to go home with her cousin to assist when medically stable. Goals Toileting Goal Independent Bathing Goal Independent Toilet Transfer Goal Independent Shower Transfer Goal Independent Days to Meet Goals 5 Frequency of Treatment Frequency Of Treatment Once a Day Treatment Plan OT Treatment Plan ADL Training,Functional Mobility,Patient/Family Education,Discharge Planning Discharge Recommendations OT Discharge Recommendations Home with Assistance,Home Health Home Equipment Needs shower chair,FWW Transportation Needs at Discharge Private Vehicle
[2021-04-11] MEDS: SODIUM CHLORIDE 1,000 MG TABLET 1000 MG PO (09:10)
[2021-04-11] MEDS: lisinopriL 20 MG TABLET PO (09:10)
[2021-04-11] MEDS: GABAPENTIN 600 MG TABLET PO (09:10)
--- NOTE | 2021-04-11 09:55 | PT.IPTN ---
Current Diagnoses Type 2 diabetes mellitus without complications (04/08/21) Hypo-osmolality and hyponatremia (04/08/21) Essential (primary) hypertension (04/08/21) Urinary tract infection, site not specified (04/08/21) Other fatigue (04/08/21) Physical Therapy Treatment Note M2 PT-IP Current Condition Start: 04/09/21 12:12 Freq: NEEDED Status: Active Protocol: Document 04/09/21 10:55 [facility] (Rec: 04/09/21 12:27 AB [id number]) Physical Therapy Current Condition Current Condition Evaluation Date 04/09/21 Treatment Diagnosis hyponatremia; difficulty in walking Onset Date 04/08/21 M3 PT-IP Subjective Start: 04/09/21 12:12 Freq: NEEDED Status: Active Protocol: Document 04/11/21 09:55 [facility] (Rec: 04/11/21 11:07 AB [id number]) Subjective Physical Therapy Visit Type Type Treatment Note Visit Start Time 09:55 Visit Stop Time 10:22 Total Visit Minutes 27 Number of STOCKROOM ASSOCIATE Visits 0 Physical Therapy Visit Comments Patient Comments agreeable to do PT M4 PT-IP Mobility and Gait Start: 04/09/21 12:12 Freq: NEEDED Status: Active Protocol: Document 04/11/21 09:55 [facility] (Rec: 04/11/21 11:07 AB [email or web address]) PT-Transfer Assessment Sit to and From Stand Sit to and from Stand Standby Assistance,1 Person Assistance,Use of Upper Extremities Equipment Transfer Assistive Device Gait Belt,Front Wheeled Walker Orthotic/Prosthetic Devices or Brace: No Transfers Transfer Destination Toilet Transfer Technique ambulated Transfer Ability Level of Assist Standby Assistance,Contact Guard Assistance,1 Person Assistance,Use of Upper Extremities Comments Mobility Comments pt sitting on chair and agreed to do PT. stated that she is going home today. Her cousin will stay with her for a few days to assist her. completed sit to stand from chair SBA and requested to use the toilet. ambulated ~ 10 ft using FWW to the toilet SBA to CGA. pt can be impulsive. presents with antalgic gait. has lateral trunk lean to the L with pelvic depressed to L side with increase L knee flexion with standing/ ambulation. completed sit to stand from the toilet SBA to cGA and pt was able to manage brief with assist. ambulated using FWW towards the sink and was able to maintain standing SBA while completing handwashing. pt can be impulsive and cued for safety. pt ambulated ~ 125 ft using fWW SBA to CGA and cues for techniques/safety. completed up/down steps using B rails CGA step through pattern. pt educated on safety and pt completed steps again with step to pattern SBA. pt ambulated more and then back to her room 150 ft using FWW SBA to CGA. pt sat on chair and positioned. call light and table placed within reach. Gait Assessment Gait Gait Assistance Required: Standby Assistance,Contact Guard Assist Distance (Feet) 150 Able to Maintain Weight Bearing Status Yes During Gait Assistive Devices Assistive Device Gait Belt,Front Wheeled Walker Orthotic/Prosthetic Devices or Brace: No Gait Deviations General Gait Pattern Antalgic,Decreased Stride Length,Decreased Feet Clearance,Lateral Trunk Lean Factors Limiting Gait Function Factors Limiting Gait Function Decreased Activity Tolerance, Decreased Strength,Limited Range of Motion,Poor Balance, Poor Safety Awareness Stair Climbing Assessment Evaluation Level of Assist On Stairs Standby Assistance,Contact Guard Assistance Devices Stair Climbing Assistive Devices Left Railing,Right Railing Technique/Endurance Stair Climbing Direction Ascend and Descend Stair Climbing Technique Step Over Step,Step to Step Number of Steps Climbed 3 Stair Climbing Set # Repetitions (reps) 2 Comments Stair Climbing Comments pls refer to mobility section for details M5 PT-IP Objective Assessments Start: 04/09/21 12:12 Freq: NEEDED Status: Active Protocol: Document 04/09/21 10:55 [facility] (Rec: 04/09/21 12:27 AB [id number]) Orientation Orientation/Cognition Level of Alertness Alert Orientation Name,Place,Situation Language Function Ability No Deficits Noted Safety Awareness Decreased Safety Awareness Memory Description No Deficits Noted Gross Range of Motion Lower Extremity ROM Assessment Within Functional Limits Strength Lower Extremity Strength Hip 3+/5 Knee 3+/5 Sensation Assessment Sensation Gross Sensation Left LE Impaired Sensation Description Numbness,Tingling Comments Sensation Comments B feet neuropathy Muscle Tone Muscle Tone WNL Yes M6 PT-IP Treatment Start: 04/09/21 12:12 Freq: NEEDED Status: Active Protocol: Document 04/11/21 09:55 [facility] (Rec: 04/11/21 11:07 AB [id number]) Physical Therapy Treatment Education Education Provided Safety M7 PT-IP Assessment and Plan Start: 04/09/21 12:12 Freq: NEEDED Status: Active Protocol: Document 04/11/21 09:55 [facility] (Rec: 04/11/21 11:07 AB [id number]) PT Summary Assessment and Plan Potential Rehabilitation Potential Fair Summary Impairments Pain,ROM,Strength,Balance, Coordination,Sensation,Tone, Cognition,Bed Mobility, Transfers,Gait,Activity Tolerance Progress Towards Goals Slow Progress due to Medical Issues Assessment Summary pt requiring SBA to CGA with ambulation using FWW. pt confirmed that she has a FWW to use upon dc and her cousin will stay with her for a few days to assist her. pt will need HHPT. Goals Bed Mobility Goal Independent Transfer Goal Independent,Front Wheeled Walker Gait Goal Independent,Front Wheel Walker Gait Distance 250 Other Goals ambualtion with least restrictive AD/without AD 300 ft SBA up/down 2 steps L rail SBA Days to Meet Goals 10 Frequency of Treatment Frequency Of Treatment Once a Day Treatment Plan Physical Therapy Treatment Plan Bed Mobility Training,Transfer Training,Gait Training, Therapeutic Exercise,Balance Retraining,Post Op Education, Discharge Planning,Hot or Cold Pack,Neuromuscular Re-ed, Coordination Retraining,Manual Therapy Recommendations To Nursing Amount of Assist Needed 1 Person Assist Discharge Recommendations PT Discharge Recommendations Home with Assistance,Home Health Transportation Needs at Discharge Private Vehicle
--- NOTE | 2021-04-11 12:32 | PC.NURSE ---
Day shift: Paperwork signed and all questions answered. She has the hard copy of script for Na tablets. She also talked with pharmacy this AM. She has had no nausea and has been steady on her feet. She said she would make a f/u appointment w/ her doc ALLEGRA. Has been voiding well. She will be taken to car in by SENIOR ENGINEERING SPECIALIST. Midline removed and Pt tolerated well. Pt also remains A&Ox4.
--- NOTE | 2021-04-11 13:06 | CM.DPC ---
DCP Cont: Checked in with patient. Introduced self and role. Patient is discharging home today, and wanted to see if she felt that she needed any home health. Patient indicated, she does not think she will need it, feels that she should be back to her regular mobility. She lives alone, but has a cousin that will be picking her up. She is originally from [facility], but recently moved to [place] from [place]. She has been a for 6 years. P: Patient is discharging home today. She stated, she does not need home health. Joanna Long RN/Thermoforming Operator
--- NOTE | 2021-04-11 13:27 | PC.NURSE ---
Day shift: Went home and off AC unit at approx 1330.
--- NOTE | 2021-04-11 13:27 | PC.NURSE ---
Day shift: Pt has made calls to all local pharmacies and none of them had the salt pills in stock. Dr Womack said Pt can use extra salt on her food. Pt has been informed of this.
--- NOTE | 2021-04-11 14:58 | P.DS_ITS ---
History of Present Illness History of Present Illness Chief complaint: Low sodium levels, Sent by PCP Narrative: Ms. Vasquez is a 70W with PMH HTN, DM, peripheral neuropathy who is coming in to the hospital with weakness, imbalanced and hyponatremia. She was in her normal state of health approximately 5 days ago, but since then she has started to notice progressively worsening imbalance and weakness. She has n oticed lightheadedness. She has decreased oral intake due to low appetite. No nausea, vomiting, abdominal pain, diarrhea. She had some dysuria prior to this presentation and talked to her PCP and was ordered for macrobid and took two doses. In addition she had lab tests drawn and was found to have a sodium of 115, and was instructed to come to ED. She is on HCTZ, but this is not a new medication, and she is at her baseline dose. She has no new meds, no weight loss, no respiratory symptoms, no OTC/herbal meds. In the ED, workup was done, vitals were notable for significant hypertension. Labs notable for WBC 5.9, hgb 12.9, plt 229, na 113, cl 78, k 3.8, mag 1.6, bun 8, creatinine 0.39. She was ordered for 3% hypertonic saline and ordered for a midline. She was admitted for further treatment. Family history: both parents with CHF Discharge Providers Provider Date of admission: 04/08/21 16:12 Discharge Date: 04/11/21 Primary care physician: Sonia Spaulding PA-C Consults: 04/08/21 16:16 Consult to Tele-retail inventory control clerk Routine Comment: Consulting Provider: Dandre Tele-intensivists Reason for consultation: Statistical Technician services 04/08/21 21:58 Consult to Physical Therapy Evaluate & Treat Comment: Physician Instructions: Evaluate and Treat 04/09/21 07:44 Consult to Physical Therapy Evaluate & Treat Comment: Physician Instructions: Evaluate and Treat 04/09/21 13:08 Consult to Occupational Therapy Evaluate & Treat Comment: Physician Instructions: Evaluate and treat Discharge provider: Sarmad Womack MD Summary Hospital Course Discharge Diagnosis: 1. Severe symptomatic hyponatremia 2. Type 2 Diabetes 3. Hypertension 4. Diabetic peripheral neuropathy 5. UTI Hospital Course: Ms. Vasquez was admitted with severe hyponatremia. She had likely combination of overdiuresis from HCTZ with component of SIADH. Her initial sodium was 113. She was initially on 3% saline. This was then stopped when her sodium improved. She was placed on a fluid restriction, increased the amount of solute in her diet. She felt much better on discharge and discharged sodium was 128. She was recommended to stop HCTZ, continue with increased solute intake and follow up with her PCP and repeat sodium next week. Exam Vital Signs (past 8 hours): Oxygen Delivery Method Room Air Oxygen Flow Rate 0 Narrative Exam Narrative: GEN: no acute distress HEENT: moist mucous membranes, PERRL NECK: trachea midline, no JVD CV: regular rate and rhythm, no murmurs PULM: clear bilaterally, no wheezes, rhonchi, rales ABD: soft, nontender, nondistended, no organomegaly, normal bowel sounds EXT: warm and well perfused with no edema NEURO: awake alert and oriented, with no focal deficits noted PSYCH: pleasant, cooperative Objective Labs Result Diagrams: 04/08/21 14:55 04/11/21 05:35 [facility] Medical History (Updated 04/08/21 @ 21:56 by Leann Morgan MD) Hypertension Peripheral neuropathy Type 2 diabetes mellitus Social History household members: none Smoking Status: Never smoker Discharge Plan Discharge Plan Patient Disposition: Home Provider Discharge Comment: Ms. Vasquez came in unsteady and confused. She was found to have severely low sodium. Her HCTZ was stopped as it can cause low sodium. She was given sodium in the IV. She was then given salt tablets. She should stop her HCTZ. She should be careful with the amount of water she drinks. She should add salt to her foods. She will be given salt tablets to take for her sodium. She should follow up with her PCP within one week to recheck her sodium level. She completed treatment for a UTI in the hospital. Discharge orders & Medications Prescriptions: New sodium chloride 1,000 mg Tablet,Soluble 1,000 mg PO TID Qty: 30 RF: 0 Continued metformin 500 mg tablet 500 mg PO BID RF: 0 gabapentin 600 mg tablet 600 mg PO QAM RF: 0 gabapentin 600 mg tablet 1,200 mg PO BEDTIME RF: 0 meloxicam 15 mg tablet 15 mg PO QAM RF: 0 lisinopril 20 mg tablet 20 mg PO QAM RF: 0 fluticasone propionate 50 mcg/actuation spray,suspension 1 spray INTRANASAL DAILY PRN (Reason: allergies.) RF: 0 Discontinued hydrochlorothiazide 25 mg tablet 25 mg PO QAM RF: 0 nitrofurantoin monohyd/m-cryst 100 mg capsule 100 cap PO BID RF: 0 Medication counseling provided by Pharmacist: Yes Follow up/Referrals: Sonia Spaulding PA-C [Primary Care Provider] - Diet/Activity/Treatments Diet: Regular Visit Report/Discharge Packet Instructions: Sodium, Urinary Tract Infection, DI for Urinary Tract Infection (UTI), DI for Hyponatremia, How to Prevent Falls Discharge Data Primary Care Provider: Sonia Spaulding Quality MIPS - DC The patient has current or prior documentation of left ventricular ejection fraction (LVEF) less than 40%, or moderate or severely depressed left ventricular systolic function.: No
== END 2021-04-11 13:29 | disposition home or self-care (01) | DRG 641 ==
LOC: ED 14:48 → AC 17:31 → ICU 04-09 00:12 → AC 04-09 07:47 → ICU 04-09 07:48 → AC 04-10 07:57
PROVIDERS: Internal Medicine; Internal Medicine Critical Care Medicine; Admitting Provider Internal Medicine; Emergency Provider Emergency Medicine; PCP Physician Assistant; Referring Provider Emergency Medicine; Visit Provider Internal Medicine
DX: E87.1 Hypo-osmolality and hyponatremia (principal); N39.0 Urinary tract infection, site not specified; E11.42 Type 2 diabetes mellitus with diabetic polyneuropathy; I10 Essential (primary) hypertension; Z20.822 Contact with and (suspected) exposure to COVID-19; Z79.84 Long term (current) use of oral hypoglycemic drugs; R53.1 Weakness
CPT/HCPCS: 36415; 36592; 70450; 71045; 80048; 80053; 81001; 82533; 82550; 82962; 83690; 83735; 83930; 83935; 84100; 84300; 84443; 84484; 84550; 85025; 85651; 87635; 87797; 97116; 97162; 97166; 97530; 97535; 99283; C9803; J0696; J1642; J1650; J1815; J2405

== ENCOUNTER → 2021-04-14 11:13 | Outpatient (CLI) | payer MEDICARE, SELFPAY ==
[2021-04-08 19:31] VITALS: BMI 25.4
[2021-04-14 12:26] LABS: Alanine Aminotransferase 17 IU/L (<35); Albumin 4.3 g/dL (3.5-5.0); Albumin Globulin Ratio 1.8 (1.0-2.8); Alkaline Phosphatase 62 U/L (38-126); Aspartate Aminotransferase 19 IU/L (14-36); Bilirubin Total 0.2 mg/dL (0.2-1.3); Blood Urea Nitrogen 15 mg/dL (7-17); Calcium 9.4 mg/dL (8.4-10.2); Carbon Dioxide 27 mmol/L (22-32); Chloride 94 mmol/L (98-107); Estimated Glomerular Filt Rate > 60.0 mL/min (>60); Globulin 2.4 g/dL (1.7-4.1); Glucose 89 mg/dL (80-110); HEMOLYSIS < 15 (0-50); Potassium 4.4 mmol/L (3.4-5.1); Sodium 129 mmol/L (137-145); Total Protein 6.7 g/dL (6.3-8.2)
[2021-04-17 15:11] LABS: Vitamin B12 798 pg/mL (239-931)
== END ==
PROVIDERS: PCP Physician Assistant; Referring Provider Physician Assistant; Visit Provider Physician Assistant
DX: E87.1 Hypo-osmolality and hyponatremia (principal)
CPT/HCPCS: 36415; 80053; 82607

== ENCOUNTER 2021-04-20 09:41 | Inpatient (IN) | payer MEDICARE, SELFPAY ==
[2021-04-08 19:31] VITALS: BMI 25.4
[2021-04-20] VITALS (54 sets, daily range): BP systolic 124–211; BP diastolic 59–91; PULSE 75–99; RESP 16–34; TEMP 36.4–37.3; O2SAT 85–100; BMI 24.7
--- NOTE | 2021-04-20 09:57 | ED_ITS ---
HPI - Weakness General Chief complaint: Recheck/Abnormal Lab/Rx Stated complaint: DM neuropathy on floor for 1hr Time Seen by Provider: 04/20/21 09:42 Source: patient and old records reviewed Mode of arrival: EMS Limitations: no limitations History of Present Illness HPI Narrative: This is a 70-year-old female with known history of diabetes with neuropathy, chronic back pain, hypertension and recent hyponatremia. 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 She states that they thought was a combination of stress of her move, sudden diet change she had had a rapid decrease in her sodium intake in combination with her hydrochlorothiazide. She states they did stop her HCTZ. She does continue to take lisinopril daily, metformin as well as gabapentin. Patient states today she was able to get out of bed get to the bathroom with a walker but when she got to the bathroom she was unable to manipulate herself properly to sit on the toilet and ended up on the floor. She states she was there for at least an hour maybe longer. Her extremities are quite cold. She denies injury. She denies chest pain or shortness of breath. She does have some chronic back pain which is present and not significantly worsened from normal. Patient denies any nausea or vomiting. No loss of bowel or bladder control. No other new GI or urinary symptoms. She states she was having quite a bit of urinary frequency with very large amounts of urination when she was in the hospital for hyponatremia but that has resolved as her sodium improved. Patient denies any fevers, no cold cough or congestion. She notes that her neuropathy has been flaring more frequently and it is very difficult for her to feel her feet. She has had no prior back surgeries but had a hysterectomy in the 80s as well as an ankle repair. She denies tobacco, occasional alcohol with no illicit. She is not allergic to medications. She has established with primary care locally with Dr. Spaulding. She does live alone independently, she retired in January and moved across country from [place]. She does have a brother who lives in [facility]. Related Data Home Medications Medication Instructions Recorded Confirmed fluticasone propionate 50 1 spray INTRANASAL DAILY PRN 04/08/21 04/20/21 mcg/actuation nasal spray,suspension (Flonase Allergy Relief) gabapentin 600 mg tablet 1,200 mg PO BEDTIME 04/08/21 04/20/21 gabapentin 600 mg tablet mg PO QAM 04/08/21 04/08/21 (Neurontin) lisinopril 20 mg tablet 20 mg PO QAM 04/08/21 04/20/21 meloxicam 15 mg tablet (Mobic) 15 mg PO QAM 04/08/21 04/20/21 metformin 500 mg tablet 500 mg PO BID 04/08/21 04/20/21 Previous Rx's Medication Instructions Recorded sodium chloride 1,000 mg soluble 1,000 mg PO TID #30 tab 04/11/21 tablet Allergies Allergy/AdvReac Type Severity Reaction Status Date / Time No Known Drug Allergies Allergy Verified 04/08/21 14:34 Review of Systems Review of Systems ROS Unobtainable: All systems reviewed & are unremarkable except as noted in HPI and below Patient History Medical History Hypertension Peripheral neuropathy Type 2 diabetes mellitus Surgical History History of hysterectomy Family History Mother Heart attack Congestive heart failure Father Congestive heart failure Social History household members: none Smoking Status: Never smoker Smoking Status: Never smoker alcohol intake frequency: a few times a week Substance Use Type: does not use Exam Narrative Exam Narrative: GEN: well nourished, well appearing female, alert and oriented x 3, patient appears to be in mild distress. Patient's extremities are cold to touch but her torso is normal temperature. HEENT: Atraumatic, pupils are equal round reactive to light, extraocular movements are intact, nares are clear, there is no conjunctival pallor. Throat is clear without any exudates, erythema, tonsillar enlargement or uvular deviation, facial droop. HEART: Regular rate and rhythm without murmur, clicks, rubs. Pulses are equal in upper and lower extremities LUNGS:Lungs clear to auscultation, no wheezes, rales, crackles, chest moves symmetrically ABD:bowel sounds normal, soft, non-tender, no guarding, rebound, rigidity, no masses noted, no hepatosplenomegaly :No CVA tenderness BACK: No cervical, thoracic or lumbar vertebral point tenderness. Patient has slightly decreased range of motion. Muscle strength is 5/5 in lower extremities, DTRs are 2/4 and lower extremities. Dorsalis pedis and tibialis pulses are 2+ and lower extremities. Sensation is intact in the lower extremities. MSCL: Non-tender, no muscle atrophy, muscles strength 5/5 upper extremities. Gait not tested. NEURO:CN 2-12 intact, sensation normal SKIN: No rash, erythema or other skin changes noted. Initial Vital Signs Initial Vital Signs: Vital Signs Pulse Rate 92 H 04/20/21 09:51 Pulse Oximetry 99 04/20/21 09:51 Course Orders Ordered: Discontinued Medications Acetaminophen (Acetaminophen 325 Mg Tablet) 650 mg PO Q6HR PRN PRN Reason: Fever/Mild Pain (1-3) Last Admin: 04/21/21 03:21 Dose: 650 mg Documented by: Admin: 04/20/21 20:59 Dose: 650 mg Documented by: RODNEY Hydrocodone Bitart/Acetaminophen (Hydrocodone/Acet 5/325 Tablet) 1 tab PO Q4HR PRN PRN Reason: Pain, Moderate (4-6) Last Admin: 04/21/21 12:13 Dose: 1 tab Documented by: Admin: 04/21/21 04:12 Dose: 1 tab Documented by: CLOTILDE Al Hydrox/Mg Hydrox/Simethicone (Mag Hydrox/Alum/Simeth 30 Ml Udc) 30 ml PO Q6HR PRN PRN Reason: Dyspepsia Cyclobenzaprine HCl (Cyclobenzaprine 10 Mg Tablet) 10 mg PO Q8HR PRN PRN Reason: Spasms Last Admin: 04/21/21 11:26 Dose: 10 mg Documented by: VICKEY Dexamethasone (Dexamethasone 10 Mg/Ml Vial) 10 mg IV NOW ONE Stop: 04/21/21 16:45 Last Admin: 04/21/21 16:59 Dose: 10 mg Documented by: VCIKEY Dextrose (Dextrose 50 % In Water 25 Gm/50 Ml Syringe) 25 gm IV PRN PRN PRN Reason: Hypoglycemia Enoxaparin Sodium (Enoxaparin 40 Mg/0.4 Ml Syringe) 40 mg SUBCUT DAILY GREY Last Admin: 04/21/21 08:44 Dose: Not Given Documented by: VICKEY Gabapentin (Gabapentin 600 Mg Tablet) 600 mg PO NOW ONE Stop: 04/20/21 13:33 Last Admin: 04/20/21 14:16 Dose: 600 mg Documented by: ISA Sodium Chloride (Normal Saline 0.9%) 1,000 mls @ 100 mls/hr IV CONT GREY Stop: 04/21/21 04:00 Last Admin: 04/20/21 21:58 Dose: 100 mls/hr Documented by: RODNEY Insulin Human Lispro (Insulin Lispro 100 Unit/Ml 3ml Vial) 0 unit SUBCUT ACHS [facility]; Protocol Last Admin: 04/21/21 22:20 Dose: Not Given Documented by: Admin: 04/21/21 16:29 Dose: Not Given Documented by: Admin: 04/21/21 11:58 Dose: Not Given Documented by: Admin: 04/21/21 07:36 Dose: Not Given Documented by: Admin: 04/20/21 21:59 Dose: Not Given Documented by: RODNEY Ketorolac Tromethamine (Ketorolac 10 Mg Tablet) 10 mg PO Q6HR PRN PRN Reason: Pain, Mild (1-3) Stop: 04/25/21 21:34 Lisinopril (Lisinopril 20 Mg Tablet) 20 mg PO NOW ONE Stop: 04/20/21 13:33 Last Admin: 04/20/21 14:15 Dose: 20 mg Documented by: ISA Lorazepam (Lorazepam 2 Mg/Ml Inj) 0.5 mg IV NOW ONE Stop: 04/20/21 11:06 Last Admin: 04/20/21 11:14 Dose: 0.5 mg Documented by: ISA Lorazepam (Lorazepam 2 Mg/Ml Inj) 1 mg IV NOW ONE Stop: 04/21/21 14:23 Last Admin: 04/21/21 14:32 Dose: 1 mg Documented by: VICKEY Magnesium Hydroxide (Magnesium Hydroxide 30 Ml Udc) 30 ml PO DAILY PRN PRN Reason: Constipation Naloxone HCl (Naloxone 0.4 Mg/Ml Vial) 0.2 mg IV Q2MIN PRN PRN Reason: Opiate Reversal Ondansetron HCl (Ondansetron 4 Mg/2 Ml Inj) 4 mg IV Q8HR PRN PRN Reason: Nausea And Vomiting Oxycodone HCl (Oxycodone Ir 5 Mg Tablet) 5 mg PO NOW ONE Stop: 04/20/21 13:33 Last Admin: 04/20/21 14:09 Dose: 5 mg Documented by: ISA Reevaluation(s) Reevaluation #2: Patient muscle spasm feel much better after the Ativan. Her blood pressure is slightly improved but still hypertensive she did not have her morning medications which include her lisinopril and gabapentin. Patient states she has been having some back issues so a oral dose of pain medication was ordered. I spoke with the hospitalist states patient had refused home health care. When asking the patient she states she is open to it and that there may have been some confusion her primary care was also going to maybe order it and that she was supposed to be seen for PT this week. Time: 13:33 Consultations Consultation #1: Dr. Parkinson, ask for PT consult and social Work consult as patient was recently here and there was concern about home safety and being able to ambulate well. Unsure if these will be available today. Vital Signs Vital signs: Vital Signs - 8 hr 04/20/21 09:51 04/20/21 09:52 04/20/21 10:00 Temperature Pulse Rate 92 H 91 H 89 Respiratory Rate Blood Pressure 204/91 H Pulse Oximetry 99 98 97 04/20/21 10:09 04/20/21 10:30 04/20/21 10:59 Temperature 99 F Pulse Rate 99 H 82 81 Respiratory Rate 18 18 Blood Pressure 204/91 H 211/86 H Pulse Oximetry 99 98 99 04/20/21 11:00 04/20/21 11:10 04/20/21 11:11 Temperature Pulse Rate 81 80 82 Respiratory Rate 20 Blood Pressure 207/81 H Pulse Oximetry 100 99 99 04/20/21 11:15 04/20/21 11:17 04/20/21 11:20 Temperature Pulse Rate 80 81 82 Respiratory Rate 18 Blood Pressure 185/78 H 174/77 H Pulse Oximetry 99 99 98 04/20/21 11:30 04/20/21 11:41 04/20/21 11:42 Temperature Pulse Rate 82 75 77 Respiratory Rate Blood Pressure 181/80 H 180/59 H Pulse Oximetry 99 98 85 L 04/20/21 11:45 04/20/21 11:50 04/20/21 12:00 Temperature Pulse Rate 80 78 76 Respiratory Rate 23 20 Blood Pressure 162/70 H 176/72 H Pulse Oximetry 97 98 99 04/20/21 12:10 04/20/21 12:15 Temperature Pulse Rate 75 75 Respiratory Rate 19 18 Blood Pressure 156/68 H Pulse Oximetry 97 98 MDM - Weakness Lab Data Result diagrams: 04/20/21 10:06 04/21/21 05:45 Labs: Lab Results 04/20/21 04/20/21 04/20/21 Range/Units 10:06 10:06 10:06 WBC 8.9 (4.5-11.0) X10^3/uL RBC 4.77 (4.0-5.2) X10^6/uL Hgb 13.3 (12.0-16.0) g/dL Hct 40.5 (36-46) % MCV 84.9 (80-100) fL MCH 27.9 (26-34) PG MCHC 32.9 (30-36) % RDW 14.9 H (11.6-14.8) % Plt Count 254 (150-400) X10^3/uL Neut % (Auto) 89.5 H (50-75) % Lymph % (Auto) 5.8 L (25-40) % [place] % (Auto) 4.6 (3-14) % Eos % (Auto) 0.1 L (2-4) % Baso % (Auto) 0.0 (0-2) % Neut # (Auto) 8000 H (0159-1549) /uL Lymph # (Auto) 500 L (5133-1695) /uL [place] # (Auto) 400 (0-900) /uL Eos # (Auto) 0 (0-450) /uL Baso # (Auto) 0 (0-100) /uL Sodium 129 L (137-145) mmol/L Potassium 4.2 (3.4-5.1) mmol/L Chloride 91 L (98-107) mmol/L Carbon Dioxide 27 (22-32) mmol/L BUN 14 (7-17) mg/dL Creatinine 0.54 (0.52-1.04) mg/dL Estimated GFR > 60.0 (>60) mL/min BUN/Creatinine Ratio 25.9 H (6-22) Glucose 131 H (80-110) mg/dL Hemoglobin A1c (4.0-6.0) % Calcium 10.1 (8.4-10.2) mg/dL Magnesium (1.6-2.3) mg/dL Total Bilirubin 0.6 (0.2-1.3) mg/dL AST 34 (14-36) IU/L ALT 22 (<35) IU/L Alkaline Phosphatase 80 (38-126) U/L Total Creatine Kinase (30-135) U/L Troponin I 0.050 H (0.01-0.034) ng/mL NT-Pro-B Natriuret Pep (<125) pg/mL Total Protein 8.5 H (6.3-8.2) g/dL Albumin 5.1 H (3.5-5.0) g/dL Globulin 3.4 (1.7-4.1) g/dL Albumin/Globulin Ratio 1.5 (1.0-2.8) Procalcitonin 0.05 (<0.5) ng/mL Urine Color Urine Appearance Urine pH (4.5-8.0) Ur Specific [place] (1.000-1.035) Urine Protein (Negative) Urine Glucose (UA) (Negative) g/dL Urine Ketones (NEGATIVE) Urine Occult Blood (Negative) Urine Nitrate (Negative) Urine Bilirubin (NEGATIVE) Urine Urobilinogen (0.2) E.U./dL Ur Leukocyte Esterase (NEGATIVE) Urine RBC (0-5/HPF) Urine WBC (0-5/HPF) Ur Squamous Epith Cells (0-5/HPF) Urine Bacteria (None) Ur Culture Indicated? SARS-CoV-2 (PCR) (Negative) 04/20/21 04/20/21 04/20/21 Range/Units 10:06 10:06 10:06 WBC (4.5-11.0) X10^3/uL RBC (4.0-5.2) X10^6/uL Hgb (12.0-16.0) g/dL Hct (36-46) % MCV (80-100) fL MCH (26-34) PG MCHC (30-36) % RDW (11.6-14.8) % Plt Count (150-400) X10^3/uL Neut % (Auto) (50-75) % Lymph % (Auto) (25-40) % [place] % (Auto) (3-14) % Eos % (Auto) (2-4) % Baso % (Auto) (0-2) % Neut # (Auto) (5262-0926) /uL Lymph # (Auto) (8212-0397) /uL [place] # (Auto) (0-900) /uL Eos # (Auto) (0-450) /uL Baso # (Auto) (0-100) /uL Sodium (137-145) mmol/L Potassium (3.4-5.1) mmol/L Chloride (98-107) mmol/L Carbon Dioxide (22-32) mmol/L BUN (7-17) mg/dL Creatinine (0.52-1.04) mg/dL Estimated GFR (>60) mL/min BUN/Creatinine Ratio (6-22) Glucose (80-110) mg/dL Hemoglobin A1c (4.0-6.0) % Calcium (8.4-10.2) mg/dL Magnesium 1.9 (1.6-2.3) mg/dL Total Bilirubin (0.2-1.3) mg/dL AST (14-36) IU/L ALT (<35) IU/L Alkaline Phosphatase (38-126) U/L Total Creatine Kinase 161 H (30-135) U/L Troponin I (0.01-0.034) ng/mL NT-Pro-B Natriuret Pep 902 H (<125) pg/mL Total Protein (6.3-8.2) g/dL Albumin (3.5-5.0) g/dL Globulin (1.7-4.1) g/dL Albumin/Globulin Ratio (1.0-2.8) Procalcitonin (<0.5) ng/mL Urine Color Urine Appearance Urine pH (4.5-8.0) Ur Specific [place] (1.000-1.035) Urine Protein (Negative) Urine Glucose (UA) (Negative) g/dL Urine Ketones (NEGATIVE) Urine Occult Blood (Negative) Urine Nitrate (Negative) Urine Bilirubin (NEGATIVE) Urine Urobilinogen (0.2) E.U./dL Ur Leukocyte Esterase (NEGATIVE) Urine RBC (0-5/HPF) Urine WBC (0-5/HPF) Ur Squamous Epith Cells (0-5/HPF) Urine Bacteria (None) Ur Culture Indicated? SARS-CoV-2 (PCR) (Negative) 04/20/21 04/20/21 04/20/21 Range/Units 10:06 10:26 10:50 WBC (4.5-11.0) X10^3/uL RBC (4.0-5.2) X10^6/uL Hgb (12.0-16.0) g/dL Hct (36-46) % MCV (80-100) fL MCH (26-34) PG MCHC (30-36) % RDW (11.6-14.8) % Plt Count (150-400) X10^3/uL Neut % (Auto) (50-75) % Lymph % (Auto) (25-40) % [place] % (Auto) (3-14) % Eos % (Auto) (2-4) % Baso % (Auto) (0-2) % Neut # (Auto) (7398-1726) /uL Lymph # (Auto) (5883-9072) /uL [place] # (Auto) (0-900) /uL Eos # (Auto) (0-450) /uL Baso # (Auto) (0-100) /uL Sodium (137-145) mmol/L Potassium (3.4-5.1) mmol/L Chloride (98-107) mmol/L Carbon Dioxide (22-32) mmol/L BUN (7-17) mg/dL Creatinine (0.52-1.04) mg/dL Estimated GFR (>60) mL/min BUN/Creatinine Ratio (6-22) Glucose (80-110) mg/dL Hemoglobin A1c 5.7 (4.0-6.0) % Calcium (8.4-10.2) mg/dL Magnesium (1.6-2.3) mg/dL Total Bilirubin (0.2-1.3) mg/dL AST (14-36) IU/L ALT (<35) IU/L Alkaline Phosphatase (38-126) U/L Total Creatine Kinase (30-135) U/L Troponin I (0.01-0.034) ng/mL NT-Pro-B Natriuret Pep (<125) pg/mL Total Protein (6.3-8.2) g/dL Albumin (3.5-5.0) g/dL Globulin (1.7-4.1) g/dL Albumin/Globulin Ratio (1.0-2.8) Procalcitonin (<0.5) ng/mL Urine Color Yellow Urine Appearance Clear Urine pH 6.5 (4.5-8.0) Ur Specific [place] 1.020 (1.000-1.035) Urine Protein 2+ H (Negative) Urine Glucose (UA) Negative (Negative) g/dL Urine Ketones 1+ H (NEGATIVE) Urine Occult Blood Trace-lysed (Negative) Urine Nitrate Negative (Negative) Urine Bilirubin Negative (NEGATIVE) Urine Urobilinogen 0.2 (0.2) E.U./dL Ur Leukocyte Esterase Negative (NEGATIVE) Urine RBC 0-1/hpf (0-5/HPF) Urine WBC 1-5/hpf (0-5/HPF) Ur Squamous Epith Cells 1-5 /hpf (0-5/HPF) Urine Bacteria Few (2-10) H (None) Ur Culture Indicated? Cult not indicated SARS-CoV-2 (PCR) Negative (Negative) 04/20/21 Range/Units 11:53 WBC (4.5-11.0) X10^3/uL RBC (4.0-5.2) X10^6/uL Hgb (12.0-16.0) g/dL Hct (36-46) % MCV (80-100) fL MCH (26-34) PG MCHC (30-36) % RDW (11.6-14.8) % Plt Count (150-400) X10^3/uL Neut % (Auto) (50-75) % Lymph % (Auto) (25-40) % [place] % (Auto) (3-14) % Eos % (Auto) (2-4) % Baso % (Auto) (0-2) % Neut # (Auto) (3556-7388) /uL Lymph # (Auto) (2444-6230) /uL [place] # (Auto) (0-900) /uL Eos # (Auto) (0-450) /uL Baso # (Auto) (0-100) /uL Sodium (137-145) mmol/L Potassium (3.4-5.1) mmol/L Chloride (98-107) mmol/L Carbon Dioxide (22-32) mmol/L BUN (7-17) mg/dL Creatinine (0.52-1.04) mg/dL Estimated GFR (>60) mL/min BUN/Creatinine Ratio (6-22) Glucose (80-110) mg/dL Hemoglobin A1c (4.0-6.0) % Calcium (8.4-10.2) mg/dL Magnesium (1.6-2.3) mg/dL Total Bilirubin (0.2-1.3) mg/dL AST (14-36) IU/L ALT (<35) IU/L Alkaline Phosphatase (38-126) U/L Total Creatine Kinase (30-135) U/L Troponin I 0.041 H (0.01-0.034) ng/mL NT-Pro-B Natriuret Pep (<125) pg/mL Total Protein (6.3-8.2) g/dL Albumin (3.5-5.0) g/dL Globulin (1.7-4.1) g/dL Albumin/Globulin Ratio (1.0-2.8) Procalcitonin (<0.5) ng/mL Urine Color Urine Appearance Urine pH (4.5-8.0) Ur Specific [place] (1.000-1.035) Urine Protein (Negative) Urine Glucose (UA) (Negative) g/dL Urine Ketones (NEGATIVE) Urine Occult Blood (Negative) Urine Nitrate (Negative) Urine Bilirubin (NEGATIVE) Urine Urobilinogen (0.2) E.U./dL Ur Leukocyte Esterase (NEGATIVE) Urine RBC (0-5/HPF) Urine WBC (0-5/HPF) Ur Squamous Epith Cells (0-5/HPF) Urine Bacteria (None) Ur Culture Indicated? SARS-CoV-2 (PCR) (Negative) Urine Dip Bedside Urine Glucose Negative Bedside Urine Bilirubin - Negative Bedside Urine Ketone +/- 5 Urine Specific [place] 1.020 Bedside Urine Occult Blood - Negative Bedside Urine pH 6.0 Bedside Urine Protein + 30 Bedside Urine Urobilinogen 0.2 Bedside Urine Nitrite - Negative Bedside Urine Leukocytes - Negative Esterase Imaging Data Chest x-ray: Radiologist Impression: Launch?[address] [address] XRay Report Signed Patient: Evelyn Vasquez MR#: [id number] : 1950 Acct:[id number] Age/Sex: 70 / F Date of Service: 04/20/21 Loc: ED Accession Number: [id number] ?? Procedure: XR chest 1V Ordering Provider: MaryA nn Duvall D.O. PROCEDURE:? XR CHEST 1V ? INDICATIONS:? weakness in legs, difficulting ambulating ? TECHNIQUE:? One view of the chest was acquired.? ? COMPARISON:? [facility], CT, CT HEAD/BRAIN WO CON, 04/09/2021, 8:43.? [facility], CR, XR CHEST 1V, 04/09/2021, 7:32. ? FINDINGS:? ? Surgical changes and devices:? None.? ? Lungs and pleura:? Lungs are clear.? No pleural effusions or pneumothorax.? ? Mediastinum:? Mediastinal contours appear normal.? Heart size is normal.? ? Bones and chest wall:? No suspicious bony lesions.? Overlying soft tissues appe ar unremarkable.? ? IMPRESSION:? ? No evidence of an acute cardiopulmonary abnormality. ? ? Dictated by: Alejo Hilario D.O. on 04/20/2021 at 10:35 ? ? Approved by: Alejo Hilario D.O. on 04/20/2021 at 10:37?? CT scan - head: Radiologist Impression: Launch?[place] [address] CT Scan Report Signed Patient: Evelyn Vasquez MR#: [id number] : 1950 Acct:[id number] Age/Sex: 70 / F Date of Service: 04/20/21 Loc: ED Accession Number: [id number] ?? Procedure: CT head/brain wo con Ordering Provider: Mary Ann Duvall D.O. PROCEDURE:? CT HEAD/BRAIN WO CON ? INDICATIONS:? weakness in legs, difficulty ambulating. ? TECHNIQUE:? Noncontrast 4.5 mm thick angled axial sections acquired from the foramen magnum to the vertex, with coronal and sagittal reformats.? For radiation dose reduction, the following was used:? automated exposure control, adjustment of mA and/or kV according to patient size.? ? COMPARISON:? [facility], CT, CT HEAD/BRAIN WO CON, 04/09/2021, 8:43. ? FINDINGS:? Image quality:? Excellent.? ? CSF spaces:? Basal cisterns are patent.? No extra-axial fluid collections.? The ventricles are symmetric in size and shape.? ? Brain:? No intracranial bleeds or masses.? There is cerebral volume loss for age, with resultant ventricular and sulcal prominence.? There are periventricular and deep white matter chronic small vessel ischemic changes.? There is intracranial internal carotid artery atherosclerosis.? ? Skull and face:? Calvarium and visualized facial bones appear intact.? Bony excrescence along the posterior right parietal vertex likely representing an osteochondroma versus other benign bone lesion, unchanged. unchanged. ? Sinuses:? Visualized sinuses and mastoids are clear.? ? IMPRESSION:? Stable head CT with findings suggestive of microvascular ischemic changes and cerebral volume loss.? No acute intracranial abnormality. ? ? Dictated by: Alejo Hilario D.O. on 04/20/2021 at 10:58 ? ? Approved by: Alejo Hilario D.O. on 04/20/2021 at 11:01?? ECG Data Attestation: I personally reviewed and interpreted this ECG as follows: Prior ECG tracings: not available for review Interpretation: Sinus rhythm, rate of 82, [place] 180, QRS is 78 [address]TC [address]. No acute ST changes appreciated. Left axis deviation, Q-waves in lateral leads. No priors for comparison. , left axis deviation, Q-waves in lateral leads. Patient does not have any acute ST elevation depression noted. Appears similar to EKG from earlier today. MDM Narrative Medical decision making narrative: This is a 70-year-old female who has been having trouble ambulating at home and fell to the floor and was not able to get up or get herself to help. She appears to have hyponatremia which she was recently admitted for but not to the same extent. She has an indeterminate troponin with no acute EKG changes but this does not appear to be rising. CK is slightly elevated and BNP is elevated at 902. Spoke with the hospitalist as patient is quite weak although she has equal strength bilaterally and does not have any symptoms that seem consistent with stroke. Request PT consult and social Work consult and accepts for hospitalization. Discharge Plan Departure Patient Disposition: Admitted as Observation Clinical Impression: Weakness, Hyponatremia, Fall Admit Date/Time: 04/20/21 15:32 Admit Provider: Damion Parkinson
--- NOTE | 2021-04-20 09:59 | DI.RAD.S_ITS ---
PROCEDURE: XR CHEST 1V INDICATIONS: weakness in legs, difficulting ambulating TECHNIQUE: One view of the chest was acquired. COMPARISON: [facility], CT, CT HEAD/BRAIN WO CON, 04/09/2021, 8:43. [facility], CR, XR CHEST 1V, 04/09/2021, 7:32. FINDINGS: Surgical changes and devices: None. Lungs and pleura: Lungs are clear. No pleural effusions or pneumothorax. Mediastinum: Mediastinal contours appear normal. Heart size is normal. Bones and chest wall: No suspicious bony lesions. Overlying soft tissues appear unremarkable. IMPRESSION: No evidence of an acute cardiopulmonary abnormality. Dictated by: Alejo Hilario D.O. on 04/20/2021 at 10:35 Approved by: Alejo Hilario D.O. on 04/20/2021 at 10:37
--- NOTE | 2021-04-20 10:00 | DI.CT.S_ITS ---
PROCEDURE: CT HEAD/BRAIN WO CON INDICATIONS: weakness in legs, difficulty ambulating. TECHNIQUE: Noncontrast 4.5 mm thick angled axial sections acquired from the foramen magnum to the vertex, with coronal and sagittal reformats. For radiation dose reduction, the following was used: automated exposure control, adjustment of mA and/or kV according to patient size. COMPARISON: [facility], CT, CT HEAD/BRAIN WO CON, 04/09/2021, 8:43. FINDINGS: Image quality: Excellent. CSF spaces: Basal cisterns are patent. No extra-axial fluid collections. The ventricles are symmetric in size and shape. Brain: No intracranial bleeds or masses. There is cerebral volume loss for age, with resultant ventricular and sulcal prominence. There are periventricular and deep white matter chronic small vessel ischemic changes. There is intracranial internal carotid artery atherosclerosis. Skull and face: Calvarium and visualized facial bones appear intact. Bony excrescence along the posterior right parietal vertex likely representing an osteochondroma versus other benign bone lesion, unchanged. unchanged. Sinuses: Visualized sinuses and mastoids are clear. IMPRESSION: Stable head CT with findings suggestive of microvascular ischemic changes and cerebral volume loss. No acute intracranial abnormality. Dictated by: Alejo Hilario D.O. on 04/20/2021 at 10:58 Approved by: Alejo Hilario D.O. on 04/20/2021 at 11:01
[2021-04-20 10:14] LABS: Add Manual Diff / Slide Review NO; Basophils Absolute Auto 0 /uL (0-100); Eosinophils Absolute Auto 0 /uL (0-450); Eosinophils Percent Auto 0.1 % (2-4); Hematocrit 40.5 % (36-46); Hemoglobin 13.3 g/dL (12.0-16.0); Lymphocytes Absolute Auto 500 /uL (1100-4500); Lymphocytes Percent Auto 5.8 % (25-40); Mean Corpuscular HGB Conc 32.9 % (30-36); Mean Corpuscular Hemoglobin 27.9 PG (26-34); Mean Corpuscular Volume 84.9 fL (80-100); Monocytes Absolute Auto 400 /uL (0-900); Monocytes Percent Auto 4.6 % (3-14); Neutrophils Absolute Auto 8000 /uL (1500-7000); Neutrophils Percent Auto 89.5 % (50-75); Platelet Count 254 X10^3/uL (150-400); Red Blood Cell Count 4.77 X10^6/uL (4.0-5.2); Red Cell Distribution Width 14.9 % (11.6-14.8); White Blood Cell Count 8.9 X10^3/uL (4.5-11.0)
[2021-04-20 10:26] LABS: Alanine Aminotransferase 22 IU/L (<35); Albumin 5.1 g/dL (3.5-5.0); Albumin Globulin Ratio 1.5 (1.0-2.8); Alkaline Phosphatase 80 U/L (38-126); Aspartate Aminotransferase 34 IU/L (14-36); BUN Creatinine Ratio 25.9 (6-22); Bilirubin Total 0.6 mg/dL (0.2-1.3); Blood Urea Nitrogen 14 mg/dL (7-17); Calcium 10.1 mg/dL (8.4-10.2); Carbon Dioxide 27 mmol/L (22-32); Chloride 91 mmol/L (98-107); Estimated Glomerular Filt Rate > 60.0 mL/min (>60); Globulin 3.4 g/dL (1.7-4.1); Glucose 131 mg/dL (80-110); HEMOLYSIS < 15 (0-50); Potassium 4.2 mmol/L (3.4-5.1); Sodium 129 mmol/L (137-145); Total Protein 8.5 g/dL (6.3-8.2)
[2021-04-20 10:42] LABS: Procalcitonin 0.05 ng/mL (<0.5)
[2021-04-20 11:07] LABS: Appearance Urine UA CLEAR; Bilirubin Urine UA NEGATIVE (NEGATIVE); Color Urine UA YELLOW; Glucose Urine UA NEGATIVE (Negative); Ketones Urine UA 1+ (NEGATIVE); Leukocyte Esterase Urine UA NEGATIVE (NEGATIVE); Nitrite Urine UA NEGATIVE (Negative); Occult Blood Urine UA TRACE-LYSED (Negative); Protein Urine UA 2+ (Negative); Urobilinogen Urine UA 0.2 E.U./dL (0.2)
[2021-04-20] MEDS: LORazepam 2 MG/ML INJ 0.5 MG IV (11:14)
[2021-04-20 11:19] LABS: pH Urine UA 6.5 (4.5-8.0)
[2021-04-20 11:24] LABS: Creatine Kinase 161 U/L (30-135)
[2021-04-20 11:24] LABS: Bacteria Urine Few (2-10); Culture Indicated Urine Cult Not Indicated; RBC Urine 0-1/HPF (0-5/HPF); Squamous Epithelial Cell Urine 1-5 /HPF (0-5/HPF); WBC Urine 1-5/HPF (0-5/HPF)
[2021-04-20 11:34] LABS: COVID19 - ADMIT (NP swab/PCR) Negative (Negative)
--- NOTE | 2021-04-20 12:14 | PC.NURSE ---
Patient states recent labwork showed low sodium. Patient reports diet has recently changed dramatically due to current living situation. She lives with someone who requires a low sodium diet, as well as food allergies.
[2021-04-20 12:21] LABS: Troponin I 0.041 ng/mL (0.01-0.034)
[2021-04-20] MEDS: OXYCODONE IR 5 MG TABLET PO (14:09)
[2021-04-20] MEDS: lisinopriL 20 MG TABLET PO (14:15)
[2021-04-20] MEDS: GABAPENTIN 600 MG TABLET PO (14:16)
--- NOTE | 2021-04-20 15:19 | CM.DPNOTE ---
DCP: Met with patient. Introduced self and role. Confirmed with patient that she lives in [place] alone. She has a cousin named Omar who lives in [facility]. Confirmed with her that he can pick her up this pm if she discharges home. Patient had sustained a fall at home, and had been on the floor for about an hour. She had been here at the hospital recently. She was grimacing in pain while speaking to this business planner, indicated, her neuropathy really bothers her, and sometimes it is hard to walk. Asked her if she had ever had home health before. She indicated, 'I think my doctor was going to order it, but hadn't heard back. She thinks that they ordered [facility] Called [facility], and they do not have her on their services. Checked with [facility], but unable to speak to anyone today. Went ahead and sent a face to face downstairs for the ER provider to sign, should she go home. Left a [employer] Book as well, and encouraged her to think about the possibility of hiring someone through one of the agencies. Patient was recently here, and she indicated that her cousin had stayed with her for a few days when she came home. She does not drive, and uses a walker at home. She does not have any children, and is for 6 years. P: Patient could discharge home today, if so, will need face to face signed, and can order home health. P.T. is currently working on her. If patient is admitted, she will need to continue to work with P.T, and placement may need to be considered. Joanna Long RN/[employer] Customer Experience Specialist
--- NOTE | 2021-04-20 16:00 | PT.IIE ---
Medical History (Last Reviewed 04/20/21 @ 09:57 by Mary Ann Duvall DO) Hypertension Peripheral neuropathy Type 2 diabetes mellitus Physical Therapy Inpatient Evaluation/Re-Eval M1 PT/OT-IP Prior Functional Status Start: 04/20/21 15:22 Freq: Status: Active Protocol: Document 04/20/21 15:41 [facility] (Rec: 04/20/21 16:00 [facility] [id number]) Medical Review Prior Functional Status Medical History Reviewed Yes Diet/Fluid Consistency Regular Communication with ER nurse prior to visit Mobility and Gait pt reports she has been getting weaker and has been having back issues at home, she does have a FWW for home but the neuropathy has increased and she has been falling with inablilty to get up Prior Functional Level (Other details) pt was living alone and had moved to [place] from [place] recently Social History Household Members none Living Arrangements House M2 PT-IP Current Condition Start: 04/20/21 15:22 Freq: Status: Active Protocol: Document 04/20/21 15:41 [facility] (Rec: 04/20/21 16:00 [facility] [id number]) Physical Therapy Current Condition Current Condition Evaluation Date 04/20/21 Treatment Diagnosis DM with peripheral neuropathy, LE weakness M3 PT-IP Subjective Start: 04/20/21 15:22 Freq: Status: Active Protocol: Document 04/20/21 15:41 [facility] (Rec: 04/20/21 16:00 [facility] [id number]) Subjective Physical Therapy Visit Type Type Initial Evaluation Visit Start Time 15:00 Visit Stop Time 15:15 Total Visit Minutes 30 Physical Therapy Visit Comments Patient Comments pt reports she is having difficulty moving her left leg and her ribs are so sore from trying to hold herself up with her walker when her legs give out on her Patient Goals decrease pain and improve strength Therapy Pain Assessment Pain When Pain Assessed During Mobility Pain Present Pain Present Pain Reported Location bilat flank pain Intensity 5 Scale Used Numeric (0 - 10) M4 PT-IP Mobility and Gait Start: 04/20/21 15:22 Freq: Status: Active Protocol: Document 04/20/21 15:41 [facility] (Rec: 04/20/21 16:00 [facility] [id number]) PT-Bed Mobility Assessment Rolling Type of Rolling Roll to Right Level of Assist Maximal Assistance Supine to Sit Supine to Sit Maximum Assistance Scooting Scooting to Edge of Bed Maximum Assistance Scooting Up and Down in Bed Maximum Assistance PT-Transfer Assessment Sit to and From Stand Sit to and from Stand Maximum Assistance Equipment Transfer Assistive Device Front Wheeled Walker Orthotic/Prosthetic Devices or Brace: No Comments Mobility Comments pt had diffculty with both bed mobility and transfers. She was not able to flex her left knee on her own past 20degrees , PROM was full. When attempting to roll to the right she couldn't assist with her left LE and her leg kept flopping back into a extended position. She was max A for a log roll to the right and max A to sit. With sitting she was unable to safely maintain her balance but this seemed to be due to the pain in her back and rib cage more than anything else. She told me her ribs were so as she had been leaning over her walker to try to take the pressure off her LE. Sit-stand was attempted 3 times and she didn 't have enough strength to stand with fww on her left LE M5 PT-IP Objective Assessments Start: 04/20/21 15: Freq: Status: Active Protocol: Document 04/20/21 15:41 [facility] (Rec: 04/20/21 16:00 [facility] [id number]) Gross Range of Motion Upper Extremity ROM Assessment Within Functional Limits Lower Extremity ROM Assessment Left Impaired Impairments poor AROM left LE, PROM full Strength Upper Extremity Strength Assessment Within Functional Limits Lower Extremity Strength Assessment Left Impaired Knee unable to flex > 20, unable to maintain knee flexion once passively flexed Comments Strength Comments left LE strength effected especially in her knee with knee flexion and extension in standing, she was not able to maintain knee flexion in supine once her knee was Passively flexed M7 PT-IP Assessment and Plan Start: 04/20/21 15:22 Freq: Status: Active Protocol: Document 04/20/21 15:41 [facility] (Rec: 04/20/21 16:00 [facility] [id number]) PT Summary Assessment and Plan Potential Rehabilitation Potential Fair Status of Condition at Evaluation Evolving Summary Impairments Pain,ROM,Strength,Balance, Sensation,Bed Mobility, Transfers,Gait,Activity Tolerance Assessment Summary Evelyn is a 70 year old female with history of DM and neuropathy. In the past few days at home she notes she has progressively gotten weaker in her LE and has not been able to hold herself upright with her fww. She has been leaning forward on her ribs trying to bear the weight of her LE and reports c/o back and rib pain now limiting her ability to balance in sitting. She had not been able to hold herself up at home with her legs and had fallen. She reports she was on the floor for a hour prior to being able to call 911. With exam she was limited with AROM and strength of the left LE, max A for rolling and for transfers . She was unable to take weight on her L LE for standing. At this time she is not safe to return home as she lives alone. She does have a brother who lives in [place] and a cousin in [place]. Goals Bed Mobility Goal Standby Assistance Transfer Goal Standby Assistance Gait Goal Standby Assistance Gait Distance 100 ft Days to Meet Goals 10 Frequency of Treatment Frequency Of Treatment Once a Day Treatment Plan Physical Therapy Treatment Plan Bed Mobility Training,Transfer Training,Therapeutic Exercise Recommendations To Nursing Amount of Assist Needed 2 Person Assist Discharge Recommendations PT Discharge Recommendations Home vs SNF Transportation Needs at Discharge Private Vehicle
[2021-04-20] MEDS: ACETAMINOPHEN 325 MG TABLET 650 MG PO (20:59)
[2021-04-20 21:06] LABS: Magnesium 1.9 mg/dL (1.6-2.3)
[2021-04-20 21:09] LABS: Hemoglobin A1C% w Est Avg Glu 5.7 % (4.0-6.0)
[2021-04-20 21:16] LABS: NT-proBNP (BNP-Adult 18+) 902 pg/mL (<125)
[2021-04-20] MEDS: SODIUM CHLORIDE 0.9% 1,000 ML 100 ML IV (21:58)
--- NOTE | 2021-04-20 23:01 | P.HP_ITS ---
History of Present Illness History of Present Illness Date Patient Seen: 04/20/21 Time Patient Seen: 20:38 Chief complaint: DM neuropathy on floor for 1hr Narrative: This is a 70-year-old female with known history of diabetes with neuropathy, chronic back pain, hypertension and recent hyponatremia.? Patient was hospitalized and discharged on April 11 for hyponatremia with possibly component of SIADH and did require 3% saline.? She states that they thought was a combination of stress of her move, sudden diet change she had had a rapid decrease in her sodium intake in combination with her hydrochlorothiazide.? She states they did stop her HCTZ.? She does continue to take lisinopril daily, metformin as well as gabapentin.? Patient states today she was able to get out of bed get to the bathroom with a walker but when she got to the bathroom she was unable to manipulate herself properly to sit on the toilet and ended up on the floor.? She states she was there for at least an hour maybe longer.? Her extremities are quite cold.? She denies injury.? She denies chest pain or shortness of breath.? She does have some chronic back pain which is present and not significantly worsened from normal.? Patient denies any nausea or vomiting.? No loss of bowel or bladder control.? No other new GI or urinary symptoms.? She states she was having quite a bit of urinary frequency with very large amounts of urination when she was in the hospital for hyponatremia but that has resolved as her sodium improved.? Patient denies any fevers, no cold cough or congestio n.? She notes that her neuropathy has been flaring more frequently and it is very difficult for her to feel her feet.? She has had no prior back surgeries but had a hysterectomy in the 80s as well as an ankle repair.? She denies tobacco, occasional alcohol with no illicit.? She is not allergic to me dications.? She has established with primary care locally with Dr. Spaulding.? She does live alone independently, she retired in January and moved across country from [place].? She does have a brother who lives in [facility].? The patient is stable and in no distress upon admit her vital signs are stable temp 97.5?, BP 144/83, HR 77, R 18, O2 saturation 100% on room air. Patient has no WBC but does have neutrophils 8000. Patient has hyponatremia again but not as severe as last time previous sodium was 113 on admit today sodium 129, chloride 91, glucose 131. Possible rhabdo myelitis elevated total creatinine kinase 161, patient's troponin was slightly elevated upon admit troponin #1. 0.050 #2. 0.041 peaked troponin #3 0.020. BNP 902, total protein 8.5, procalcitonin is negative, urinalysis was negative for infection. Patient had a Fitzgerald placed in ED, head CT was negative for intracranial processes, chest x-ray was negative for any cardiopulmonary acute processes, patient admitted for failure to thrive, recurrent falls, mild hyponatremia acute on chronic, and elevated troponin. Patient History Medical History Hypertension Peripheral neuropathy Type 2 diabetes mellitus Surgical History History of hysterectomy Family & Social History Family History Mother Heart attack Congestive heart failure Father Congestive heart failure Social History: household members none Prior Living Arrangements House Safety & Behavioral: Feels Safe in Current Yes Environment Been Physically Hurt or No Threatened By a Person Suicidal Ideation Description None Suicide Plan Description No Plan Tobacco & Substance use: Smoking Status Never smoker alcohol intake frequency a few times a week Substance Use Type does not use Meds Home Medications and Allergies Home Medications Medication Instructions Recorded Confirmed Type fluticasone propionate 50 1 spray INTRANASAL DAILY PRN 04/08/21 04/20/21 History mcg/actuation nasal spray,suspension (Flonase Allergy Relief) gabapentin 600 mg tablet 1,200 mg PO BEDTIME 04/08/21 04/08/21 History gabapentin 600 mg tablet mg PO QAM 04/08/21 04/08/21 History (Neurontin) lisinopril 20 mg tablet 20 mg PO QAM 04/08/21 04/08/21 History meloxicam 15 mg tablet 15 mg PO QAM 04/08/21 04/08/21 History metformin 500 mg tablet 500 mg PO BID 04/08/21 04/08/21 History sodium chloride 1,000 mg soluble 1,000 mg PO TID #30 tab 04/11/21 04/20/21 Rx tablet Allergies Allergy/AdvReac Type Severity Reaction Status Date / Time No Known Drug Allergies Allergy Verified 04/08/21 14:34 Review of Systems Review of Systems Narrative: All 12 point systems reviewed with the patient and are negative except otherwise documented. Exam Vital Signs (past 8 hours): - 04/20/21 15:04 04/20/21 15:10 04/20/21 15:19 Temperature Pulse Rate 81 78 77 Respiratory Rate 17 21 21 Blood Pressure 130/63 Pulse Oximetry 96 92 98 04/20/21 15:20 04/20/21 15:30 04/20/21 15:40 Temperature Pulse Rate 77 77 77 Respiratory Rate 21 18 19 Blood Pressure 128/62 Pulse Oximetry 95 95 95 04/20/21 15:45 04/20/21 15:50 04/20/21 16:25 Temperature 97.5 F L Pulse Rate 77 76 77 Respiratory Rate 19 19 18 Blood Pressure 127/60 144/83 H Pulse Oximetry 94 95 100 04/20/21 20:15 04/20/21 20:32 Temperature 99.1 F Pulse Rate 81 Respiratory Rate 16 Blood Pressure 138/61 Pulse Oximetry 96 95 Oxygen Delivery Method Room Air Narrative Exam Narrative: GEN: well nourished, well appearing female, alert and oriented x 3, patient appears to be in mild distress.? Patient's extremities are cold to touch but her torso is normal temperature.? HEENT: Atraumatic, pupils are equal round reactive to light, extraocular movements are intact, nares are clear, there is no conjunctival pallor.? Throat is clear without any exudates, erythema, tonsillar enlargement or uvular deviation, facial droop. HEART: Regular rate and rhythm without murmur, clicks, rubs.? Pulses are equal in upper and lower extremities LUNGS:Lungs clear to auscultation, no wheezes, rales, crackles, chest moves symmetrically ABD:bowel sounds normal, soft, non-tender, no guarding, rebound, rigidity, no masses noted, no hepatosplenomegaly :No CVA tenderness BACK: No cervical, thoracic or lumbar vertebral point tenderness.? Patient has slightly decreased range of motion. Muscle strength is 5/5 in lower extremities, DTRs are 2/4 and lower extremities.? Dorsalis pedis and tibialis pulses are 2+ a nd lower extremities.? Sensation is intact in the lower extremities.? MSCL: Non-tender, no muscle atrophy, muscles strength 5/5 upper extremities.? Gait not tested. NEURO:CN 2-12 intact, sensation normal SKIN:? No rash, erythema or other skin changes noted. Objective Labs Result Diagrams: 04/20/21 10:06 04/20/21 10:06 Labs: Laboratory Results - last 24 hr 04/20/21 04/20/21 04/20/21 10:06 10:06 10:06 WBC 8.9 RBC 4.77 Hgb 13.3 Hct 40.5 MCV 84.9 MCH 27.9 MCHC 32.9 RDW 14.9 H Plt Count 254 Neut % (Auto) 89.5 H Lymph % (Auto) 5.8 L [place] % (Auto) 4.6 Eos % (Auto) 0.1 L Baso % (Auto) 0.0 Neut # (Auto) 8000 H Lymph # (Auto) 500 L [place] # (Auto) 400 Eos # (Auto) 0 Baso # (Auto) 0 Sodium 129 L Potassium 4.2 Chloride 91 L Carbon Dioxide 27 BUN 14 Creatinine 0.54 Estimated GFR > 60.0 BUN/Creatinine Ratio 25.9 H Glucose 131 H Hemoglobin A1c Calcium 10.1 Magnesium Total Bilirubin 0.6 AST 34 ALT 22 Alkaline Phosphatase 80 Total Creatine Kinase Troponin I 0.050 H NT-Pro-B Natriuret Pep Total Protein 8.5 H Albumin 5.1 H Globulin 3.4 Albumin/Globulin Ratio 1.5 Procalcitonin 0.05 Urine Color Urine Appearance Urine pH Ur Specific [place] Urine Protein Urine Glucose (UA) Urine Ketones Urine Occult Blood Urine Nitrate Urine Bilirubin Urine Urobilinogen Ur Leukocyte Esterase Urine RBC Urine WBC Ur Squamous Epith Cells Urine Bacteria Ur Culture Indicated? SARS-CoV-2 (PCR) 04/20/21 04/20/21 04/20/21 10:06 10:06 10:06 WBC RBC Hgb Hct MCV MCH MCHC RDW Plt Count Neut % (Auto) Lymph % (Auto) [place] % (Auto) Eos % (Auto) Baso % (Auto) Neut # (Auto) Lymph # (Auto) [place] # (Auto) Eos # (Auto) Baso # (Auto) Sodium Potassium Chloride Carbon Dioxide BUN Creatinine Estimated GFR BUN/Creatinine Ratio Glucose Hemoglobin A1c Calcium Magnesium 1.9 Total Bilirubin AST ALT Alkaline Phosphatase Total Creatine Kinase 161 H Troponin I NT-Pro-B Natriuret Pep 902 H Total Protein Albumin Globulin Albumin/Globulin Ratio Procalcitonin Urine Color Urine Appearance Urine pH Ur Specific [place] Urine Protein Urine Glucose (UA) Urine Ketones Urine Occult Blood Urine Nitrate Urine Bilirubin Urine Urobilinogen Ur Leukocyte Esterase Urine RBC Urine WBC Ur Squamous Epith Cells Urine Bacteria Ur Culture Indicated? SARS-CoV-2 (PCR) 04/20/21 04/20/21 04/20/21 10:06 10:26 10:50 WBC RBC Hgb Hct MCV MCH MCHC RDW Plt Count Neut % (Auto) Lymph % (Auto) [place] % (Auto) Eos % (Auto) Baso % (Auto) Neut # (Auto) Lymph # (Auto) [place] # (Auto) Eos # (Auto) Baso # (Auto) Sodium Potassium Chloride Carbon Dioxide BUN Creatinine Estimated GFR BUN/Creatinine Ratio Glucose Hemoglobin A1c 5.7 Calcium Magnesium Total Bilirubin AST ALT Alkaline Phosphatase Total Creatine Kinase Troponin I NT-Pro-B Natriuret Pep Total Protein Albumin Globulin Albumin/Globulin Ratio Procalcitonin Urine Color Yellow Urine Appearance Clear Urine pH 6.5 Ur Specific [place] 1.020 Urine Protein 2+ H Urine Glucose (UA) Negative Urine Ketones 1+ H Urine Occult Blood Trace-lysed Urine Nitrate Negative Urine Bilirubin Negative Urine Urobilinogen 0.2 Ur Leukocyte Esterase Negative Urine RBC 0-1/hpf Urine WBC 1-5/hpf Ur Squamous Epith Cells 1-5 /hpf Urine Bacteria Few (2-10) H Ur Culture Indicated? Cult not indicated SARS-CoV-2 (PCR) Negative 04/20/21 04/20/21 11:53 21:55 WBC RBC Hgb Hct MCV MCH MCHC RDW Plt Count Neut % (Auto) Lymph % (Auto) [place] % (Auto) Eos % (Auto) Baso % (Auto) Neut # (Auto) Lymph # (Auto) [place] # (Auto) Eos # (Auto) Baso # (Auto) Sodium Potassium Chloride Carbon Dioxide BUN Creatinine Estimated GFR BUN/Creatinine Ratio Glucose Hemoglobin A1c Calcium Magnesium Total Bilirubin AST ALT Alkaline Phosphatase Total Creatine Kinase Troponin I 0.041 H 0.020 NT-Pro-B Natriuret Pep Total Protein Albumin Globulin Albumin/Globulin Ratio Procalcitonin Urine Color Urine Appearance Urine pH Ur Specific [place] Urine Protein Urine Glucose (UA) Urine Ketones Urine Occult Blood Urine Nitrate Urine Bilirubin Urine Urobilinogen Ur Leukocyte Esterase Urine RBC Urine WBC Ur Squamous Epith Cells Urine Bacteria Ur Culture Indicated? SARS-CoV-2 (PCR) Assessment & Plan Assessment & Plan narrative: Ms. Vasquez is a 70W with PMH DM, HTN, recent hospitalization for severe hyonatremia who had refused home health assistance on previous discharge on 04/11/2021. Patient is admitted for failure to thrive secondary to fall, continued mild hyponatremia, and elevated troponin. Will correct hyponatremia with normal saline, PT/ home health evaluation tomorrow, troponins have peaked and are now resolving. 1. Failure to thrive secondary to frequent falls most likely related to deconditioning from previous hospitalization, with this continued mild hypon atremia, and elevated troponin, acute, present on admission -initial sodium 129-NS@100cc/hr, HCTZ stopped on previous admit. -patient appears mildly hypovolemic on exam, but not significantly so. Monitor for fluid overload. -troponins 1. 0.050, 2. 0.041, 3. 0.020-patient is asymptomatic likely related to fall and deconditioning as well as elevated total creatinine kinase. -physical therapy and social work evaluation for home health tomorrow 2. Type 2 Diabetes -hold metformin -ordered for insulin sliding scale 3. Hypertension -hold hctz -continue lisinopril 4. Diabetic peripheral neuropathy -continue gabapentin CODE: Full Surrogate decision maker: family Robert Thorpe PCR: Negative Dispo: inpatient, expected less than 2 midnights. DVT/VTE prophylaxis:Lovenox 40 & SCD's I have utilized all available immediate resources to obtain, update, or review the patient's current medications. I confirmed that the patient's advanced care plan is present, Code status is documented and/or surrogate decision maker is listed in the patient's medical record. Time Spent With Patient Critical Care time: I spent a total of [] minutes of critical care time on this patient's care today; this time is exclusive of procedural time. Quality VTE Deep Vein Thrombosis/Pulmonary Embolism Present on Admission: No
--- NOTE | 2021-04-20 23:49 | PC.NURSE ---
admit from ED at 1430: arrived via stretcher. 3pa via slider board to bed. able to move ue's w/o issue, has tougher time w/ LE's. some purplish bruising to Right knee and scatterred bruises to UE's. morris patent, had some dry liquid BM on her leg/thigh, patient reports having a loose BM this morning when she was on the floor in the bathroomn and unable to get up. reports restless legs, w/ spasms noted. PRN apap given plus routine neurontin. NS at 100/hour. anticipate PT/OT/HH, d/c in 1-2 days per MD.
[2021-04-21] VITALS (11 sets, daily range): BP systolic 134–156; BP diastolic 50–61; PULSE 70–84; RESP 16–18; TEMP 36.3–37.3; O2SAT 95–99
[2021-04-21] MEDS: ACETAMINOPHEN 325 MG TABLET 650 MG PO (03:21)
[2021-04-21] MEDS: HYDROCODONE/ACET 5/325 TABLET 1 TAB PO ×2 (04:12→12:13)
[2021-04-21 06:16] LABS: BUN Creatinine Ratio 25.9 (6-22); Blood Urea Nitrogen 14 mg/dL (7-17); Calcium 9.1 mg/dL (8.4-10.2); Carbon Dioxide 26 mmol/L (22-32); Chloride 96 mmol/L (98-107); Estimated Glomerular Filt Rate > 60.0 mL/min (>60); Glucose 120 mg/dL (80-110); HEMOLYSIS < 15 (0-50); Potassium 4.1 mmol/L (3.4-5.1); Sodium 128 mmol/L (137-145)
[2021-04-21 06:26] LABS: Troponin I 0.015 ng/mL (0.01-0.034)
--- NOTE | 2021-04-21 08:49 | CM.DANOTE ---
Addendum entered by Joanna Long R.N. 04/21/21 15:01: Isabela at [facility] indicated that they can use her last 04/11 visit here at the hospital for inpatient status. They should be able to accept patient tomorrow. UR also confirmed that patient will be inpatient status. Spoke to patient in her room. Let her know that she most likely will need skilled rehab before returning home. She stated, if I have to go, I have to go. She is supposed to be getting her MRI today at approximately 1500, and is anxious. Confirmed with her that her cousin, Yoan, is taking care of her dogs at home. Addendum entered by Joanna Long R.N. 04/21/21 12:09: Called Isabela over at [facility] and asked her if she can review patient for a possible COVID waiver, since she most likely is OBS. It is unclear at this time if patient will be having MRI. She will be working with P.T. today, and will see how she does. Original Note: DCP: Case received, EMR reviewed and met with patient. Introduced self and role. Met patient in the ER yesterday, and today, was also able to meet with patient for additional information regarding her baseline activities prior to hospitalization, and her current living situation. DCP assessment was completed with information currently available. Patient is a 70 year old female who admitted yesterday afternoon to the care of the hospitalist team. PCP: Dr. Spaulding. Payer: confirmed: Medicare/[employer]ARP. Patient came to the hospital via ambulance secondary to her having a fall at home secondary to increased weakness. She had been using the bathroom at home, and slid to the floor, unable to get up. Medics came and brought her here. Patient was recently here on 04/11 for hyponatremia, and discharged home. At the time, she did not want home health. This supply chain planner went to the ER prior to her being admitted, to see if she could go home with home health, but after working with P.T, she was a max assist. She did have some mild hyponatremia, and increased troponin. Met with patient in her room. She was sitting up in bed. Had already sent some clinical information to [facility] yesterday, but was not able to get ER MD to sign a face to face. She lives alone, recently moved here from [place], and was independent, and drove. Since last admit, she has not been driving and using a FWW walker that she purchased. She has a cousin, who is listed on her white board named Omar Malagon. She stated that he is at her home currently watching over her animals. She resides in [place] and has been a for 6 years. She also has a sister in law named Charu in [place]. Her goal is to go home with concerns for her animals. She did indicate that her cousin can stay with her for w couple days if needed. Mentioned skilled rehab, if patient is not able to ambulate, and can possibly pursue a COVID waiver since she likely may be OBS. As previously stated, her concern is her animals. P: DCP to continue to follow. Patient will be working with P.T. today. [facility] has been started. Will also discuss in team rounds. Joanna Long RN/Form Grader Operator Discharge Planning/Care Management Advanced directive, confirm from FAMILY Start: 04/20/21 16:49 Freq: Q24H Status: Active Protocol: Document 04/20/21 16:49 BV (Rec: 04/20/21 22:35 BV [id number]) Advance Directive, confirm on record Time 17:20 Person contacted self Copy received No Copy received No Advanced directive available on record No CM Discharge Assessment Start: 04/21/21 08:47 Freq: Status: Active Protocol: Document 04/21/21 08:47 VM (Rec: 04/21/21 08:49 VM [id number]) Discharge Planning Assessment Assigned Chemist Intern Joanna Long RN/Form Grader Operator Advance Directives? No Advance Directives on File No History Provided By Patient,Medical Record Prior Living Arrangements House Household Members none Type of transporation used prior to Drives own vehicle admit Comment Not driving currently, but prior to moving here recently, she was driving. Independent with ADL's Yes Is patient alert and oriented? Yes Needs Assistance With Home Chores / Shopping DME Already Rented / Owned FWW / Walker Patient/Family Preference Home with Home Health Barriers to Discharge Yes Comment Lives alone, and decreased mobility Discharge Plan Home with Home Health Transportation Arrangement Pt states her cousin or brother can provide transport at d/c Additional Comment Pending PT eval and recommendations Whiteboard Updated in Patient Room with Yes name and ext. # of Chemist Intern Review Status In Process Next Review Type Continued Stay Review
--- NOTE | 2021-04-21 10:58 | DI.MRI.S_ITS ---
PROCEDURE: MR LUMBAR SPINE WO/W CON INDICATIONS: lower extremity weakness TECHNIQUE: Noncontrast sagittal T1 spin echo and T2 fast spin echo, sagittal STIR, axial T1 and T2 fast spin echo through the lumbar spine. In cases with scoliosis, additional coronal T2 fast spin echo may be performed. After the administration of contrast, sagittal and axial T1 spin echo with fat saturation through the lumbar spine. COMPARISON: [facility], MR, MR HEAD/BRAIN WO CON, 04/21/2021, 14:43. FINDINGS: Image quality: This examination is limited by involuntary motion artifact. Alignment and curvature: There is minimal anterolisthesis seen at L3-L4, with mild anterolisthesis at L4-L5. Marrow: There is approximately 30% loss of height centrally at the T9 level. Expansile infiltration of this vertebral body can be seen, particularly involving the left pedicle. There is severe central canal narrowing at the T9 level. Moderate to severe bilateral neural foraminal narrowing can be seen at T8-T9 and T9-T10. Spinal cord: Conus medullaris terminates at the L1-L2 level. Visualized spinal cord demonstrates normal signal, without suspicious enhancement. Paraspinous soft tissues: No paravertebral masses or abnormal enhancement. T12-L1: Normal appearance. L1-L2: Normal appearance. L2-L3: Moderate loss of disc height is seen. Loss of disc signal is seen. Moderate generalized disc bulge is seen. There is a superimposed central disc protrusion. Mild facet joint hypertrophy is seen. There is mild right-sided and minimal left-sided neural foraminal narrowing seen. Mild to moderate central canal narrowing is seen. L3-L4: Moderate to severe loss of disc height is seen. There is fluid seen along this disc level. Moderate to prominent disc bulge is seen, which is eccentric to the left. There is a superimposed central disc protrusion. Moderate facet joint hypertrophy is seen. Associated hypertrophy of the ligamentum flavum can be seen. There is a degree of compression seen upon the exiting nerve roots. There is severe central canal narrowing seen at this level. L4-L5: Moderate to severe loss of disc height and disc signal can be seen. At least moderate disc bulge is seen. There is a superimposed central disc protrusion. Moderate to prominent facet hypertrophy is seen. Associated hypertrophy of the ligamentum flavum can be seen. There is moderate to severe bilateral neural foraminal narrowing seen, left worse than right. There is a degree of compression seen upon the exiting nerve roots. Severe central canal narrowing is seen, as on series 9, image 13. L5-S1: At least moderate loss of disc height and disc signal can be seen at this level. At least moderate disc bulge is seen, which is eccentric to the right. There is moderate right-sided and moderate to prominent left-sided facet hypertrophy seen. There is moderate right-sided and minimal left-sided neural foraminal narrowing. Mild central canal narrowing is seen. 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 Moderate to severe bilateral neural foraminal narrowing can be seen at T8-T9 and at T9-T10. Spine surgery consultation is recommended. Lumbar spine degenerative changes are seen, which are worst at L3-L4 and L4-L5, where there is severe central canal narrowing and moderate to severe bilateral neural foraminal narrowing at these levels. Note: Dr. Womack was not available to discuss this case at the time of this dictation. Findings and recommendations relayed to Dr. Womack Via nurse Scott at 3:19 p.m. [place] time on April 21, 2021. Dictated by: Mckinley Varghese M.D. on 04/21/2021 at 15:10 Approved by: Mckinley Varghese M.D. on 04/21/2021 at 15:22
--- NOTE | 2021-04-21 10:59 | DI.MRI.S_ITS ---
PROCEDURE: MR HEAD/BRAIN WO CON INDICATIONS: lower leg weakness TECHNIQUE: Non-contrast axial T1 spin echo, axial T2 fast spin echo, sagittal and axial FLAIR, coronal T2 fast spin echo, axial gradient echo, axial diffusion and ADC through the brain. COMPARISON: [facility], CT, CT HEAD/BRAIN WO CON, 04/20/2021, 10:12. FINDINGS: Image quality: Excellent. CSF spaces: Ventricles appear symmetric in size and shape. Basal cisterns are patent. No extra-axial fluid collections. Brain: No intracranial bleeds or mass effects. There is cerebral volume loss for age. There are periventricular and deep white matter chronic small vessel ischemic changes. Brainstem appears normal. Diffusion-weighted images show no acute ischemic insults. No chronic ischemic insults. Normal intravascular flow voids are present. Skull and face: Calvarial bone marrow is normal in signal. Orbits are normal. There appears to be significant central canal narrowing in the visualized cervical spine the level of the C3-C4 disc. 1.2 centimeter ovoid lesion with well-defined margins noted in the right parietal scalp which may represent sebaceous cyst. Sinuses: Sinuses are clear. Fluid signal noted in the dependent portions of the mastoid air cells bilaterally, left greater than right. IMPRESSION: 1. No acute intracranial disease process. Rashida of 2. No areas of acute or chronic infarction. 3. No intracranial hemorrhage. 4. Possible significant spinal central canal narrowing at the level of the C3-C4 disc. Recommend dedicated cervical spine MRI for additional evaluation. 5. In the mastoid air cells bilaterally. Recommend correlation with physical findings to differentiate serous fluid from an inflammatory process. Dictated by: Tiana Vick MD, PhD on 04/21/2021 at 14:50 Approved by: Taina Vick MD, PhD on 04/21/2021 at 14:55
[2021-04-21] MEDS: CYCLOBENZAPRINE 10 MG TABLET PO (11:26)
--- NOTE | 2021-04-21 11:35 | PT.IIE ---
Medical History (Last Reviewed 04/20/21 @ 23:10 by Rosa M Pearce, [facility]) Hypertension Peripheral neuropathy Type 2 diabetes mellitus Physical Therapy Inpatient Evaluation/Re-Eval M1 PT/OT-IP Prior Functional Status Start: 04/20/21 15:22 Freq: Status: Active Protocol: Document 04/20/21 15:41 [facility] (Rec: 04/20/21 16:00 [facility] [id number]) Medical Review Prior Functional Status Medical History Reviewed Yes Diet/Fluid Consistency Regular Communication with ER nurse prior to visit Mobility and Gait pt reports she has been getting weaker and has been having back issues at home, she does have a FWW for home but the neuropathy has increased and she has been falling with inablilty to get up Prior Functional Level (Other details) pt was living alone and had moved to [place] from [place] recently Social History Household Members none Living Arrangements House M2 PT-IP Current Condition Start: 04/20/21 15:22 Freq: Status: Active Protocol: Document 04/20/21 15:41 [facility] (Rec: 04/20/21 16:00 [facility] [id number]) Physical Therapy Current Condition Current Condition Evaluation Date 04/20/21 Treatment Diagnosis DM with peripheral neuropathy, LE weakness M3 PT-IP Subjective Start: 04/20/21 15:22 Freq: Status: Active Protocol: Document 04/21/21 11:35 AW (Rec: 04/21/21 12:36 AW [id number]) Subjective Physical Therapy Visit Type Type Treatment Note Visit Start Time 11:06 Visit Stop Time 11:35 Total Visit Minutes 29 Number of BABY NURSE Visits 0 Physical Therapy Visit Comments Patient Comments Pt is willing to participate with PT, states she is having 9/10 low back pain with movement. Therapy Pain Assessment Pain When Pain Assessed During Mobility Pain Present Pain Present Pain Reported Location bilat flank pain Intensity 9 Scale Used Numeric (0 - 10) Description Spasm,With Movement Pain Management Techniques Modification of Treatment,Re- positioning,Timing of Activity with Medications M4 PT-IP Mobility and Gait Start: 04/20/21 15:22 Freq: Status: Active Protocol: Document 04/21/21 11:35 AW (Rec: 04/21/21 12:36 AW [id number]) PT-Bed Mobility Assessment Rolling Type of Rolling Roll to Right Level of Assist Moderate Assistance,1 Person Assistance Supine to Sit Supine to Sit Maximum Assistance Scooting Scooting to Edge of Bed Maximum Assistance Scooting Up and Down in Bed Maximum Assistance PT-Transfer Assessment Sit to and From Stand Sit to and from Stand Maximum Assistance Equipment Transfer Assistive Device Gait Belt,Front Wheeled Walker Orthotic/Prosthetic Devices or Brace: No Comments Mobility Comments Pt is moving her left leg more freely today but complains of low back pain with all movement, increased with sitting. She was able to sit up EOB max A x 1 and attempted to stand x 2 but unable to maintain standing due to BLE weakness and back/flank pain. Pt not safe for transfer at this time and needed max assist for return to supine. M5 PT-IP Objective Assessments Start: 04/20/21 15:22 Freq: Status: Active Protocol: Document 04/20/21 15:41 AM[facility] (Rec: 04/20/21 16:00 [facility] [id number]) Gross Range of Motion Upper Extremity ROM Assessment Within Functional Limits Lower Extremity ROM Assessment Left Impaired Impairments poor AROM left LE, PROM full Strength Upper Extremity Strength Assessment Within Functional Limits Lower Extremity Strength Assessment Left Impaired Knee unable to flex > 20, unable to maintain knee flexion once passively flexed Comments Strength Comments left LE strength effected especially in her knee with knee flexion and extension in standing, she was not able to maintain knee flexion in supine once her knee was Passively flexed M6 PT-IP Treatment Start: 04/20/21 15:22 Freq: Status: Active Protocol: Document 04/21/21 11:35 AW (Rec: 04/21/21 12:36 AW [id number]) Physical Therapy Treatment Education Education Provided Safety M7 PT-IP Assessment and Plan Start: 04/20/21 15:22 Freq: Status: Active Protocol: Document 04/21/21 11:35 AW (Rec: 04/21/21 12:36 AW [id number]) PT Summary Assessment and Plan Potential Rehabilitation Potential Fair Status of Condition at Evaluation Evolving Summary Impairments Pain,ROM,Strength,Balance, Sensation,Bed Mobility, Transfers,Gait,Activity Tolerance Progress Towards Goals Slow Progress due to Pain,Slow Progress due to Medical Issues Assessment Summary Pt limited by back/flank pain and BLE weakness. She is scheduled for lumbar and brain MRI at 1500. She had poor trunk control in sitting today and was unable to maintain standing >2 seconds. Pt lives alone and will likely require SNF rehab at discharge. Goals Bed Mobility Goal Standby Assistance Transfer Goal Standby Assistance Gait Goal Standby Assistance Gait Distance 100 ft Days to Meet Goals 10 Frequency of Treatment Frequency Of Treatment Once a Day Treatment Plan Physical Therapy Treatment Plan Bed Mobility Training,Transfer Training,Gait Training, Therapeutic Exercise,Balance Retraining,Discharge Planning Other Recommendations and Next Treatment ambulation Focus Precautions Other Precautions falls Discharge Recommendations PT Discharge Recommendations Home with 24/ Assist Available,Home Health,SNF Rehab,Home vs SNF Transportation Needs at Discharge Wheelchair/Cabulance
[2021-04-21] MEDS: LORazepam 2 MG/ML INJ 1 MG IV (14:32)
--- NOTE | 2021-04-21 15:05 | P.PN_ITS ---
Subjective Subjective Date Patient Seen: 04/21/21 Time Patient Seen: 10:30 Interval history: She notes bilaterally weak lower legs that started on Wednesday 04/18. She has felt they are clumsy and difficult to control. She has known peripheral neuropathy, and has chronic numbness. She has worse lower back pain. Exam Vital Signs (past 8 hours): - 04/21/21 07:30 04/21/21 08:00 04/21/21 11:00 Temperature 98.8 F 98.9 F Pulse Rate 70 78 Respiratory Rate 16 18 Blood Pressure 135/50 L 156/57 H Pulse Oximetry 97 98 98 04/21/21 11:20 Temperature Pulse Rate Respiratory Rate Blood Pressure Pulse Oximetry 98 Oxygen Delivery Method Room Air Oxygen Flow Rate 0 Narrative Exam Narrative: GEN: no acute distress HEART: Regular rate and rhythm without murmur LUNGS:Lungs clear to auscultation, no wheezes, rales, crackles ABD:soft, nontender, nondistended, no organomegaly NEURO: tenderness over the lumbar spine, that is also bilaterally lateral to spine, decreased sensation in bilateral legs, feet in dorsiflexed position with movement and decreased strength 4/5, cranial nerves 2-12 intact, upper extremities normal strength Objective Labs Result Diagrams: 04/20/21 10:06 04/21/21 05:45 Labs: Laboratory Results - last 24 hr 04/20/21 04/20/21 04/20/21 10:06 10:06 10:06 Sodium Potassium Chloride Carbon Dioxide BUN Creatinine Estimated GFR BUN/Creatinine Ratio Glucose Hemoglobin A1c 5.7 Calcium Magnesium 1.9 Troponin I NT-Pro-B Natriuret Pep 902 H 04/20/21 04/21/21 04/21/21 21:55 05:45 05:45 Sodium 128 L Potassium 4.1 Chloride 96 L Carbon Dioxide 26 BUN 14 Creatinine 0.54 Estimated GFR > 60.0 BUN/Creatinine Ratio 25.9 H Glucose 120 H Hemoglobin A1c Calcium 9.1 Magnesium Troponin I 0.020 0.015 NT-Pro-B Natriuret Pep PFSH Medical History Hypertension Peripheral neuropathy Type 2 diabetes mellitus Surgical History History of hysterectomy Family History Mother Heart attack Congestive heart failure Father Congestive heart failure Social History household members: none Smoking Status: Never smoker Assessment & Plan Assessment & Plan narrative: Ms. Vasquez is a 70W with PMH DM, HTN, recent hospitalization for severe hyonatremia who had declined home health assistance on previous discharge on 04/11/2021 now admitted for lower extremity weakness. 1. Acute lower extremity weakness -etiology unclear, appears significant change from previous -MRI lumbar spine ordered stat, MR brain ordered as well -sodium stable from last admission at 129 -physical therapy and social work evaluation -ordered muscle relaxers for muscle spasm 2. Cardiac demand ischemia -troponins 1. 0.050, 2. 0.041, 3. 0.020-patient is asymptomatic likely related to fall and deconditioning as well as elevated total creatinine kinase. 2. Type 2 Diabetes -hold metformin -ordered for insulin sliding scale 3. Hypertension -hold hctz -continue lisinopril 4. Diabetic peripheral neuropathy -continue gabapentin Time Spent With Patient Critical Care time: I spent a total of [] minutes of critical care time on this patient's care today; this time is exclusive of procedural time. Quality VTE Deep Vein Thrombosis/Pulmonary Embolism Present on Admission: No
[2021-04-21] MEDS: DEXAMETHASONE 10 MG/ML VIAL IV (16:59)
--- NOTE | 2021-04-21 18:27 | P.DS_ITS ---
History of Present Illness History of Present Illness Chief complaint: DM neuropathy on floor for 1hr Narrative: Per Rosa M Ramses: This is a 70-year-old female with known history of diabetes with neuropathy, c hronic back pain, hypertension and recent hyponatremia.? Patient was hospitalized and discharged on April 11 for hyponatremia with possibly component of SIADH and did require 3% saline.? She states that they thought was a combination of stress of her move, sudden diet change she had had a rapid decrease in her sodium intake in combination with her hydrochlorothiazide.? She states they did stop her HCTZ.? She does continue to take lisinopril daily, metformin as well as gabapentin.? Patient states today she was able to get out of bed get to the bathroom with a walker but when she got to the bathroom she was unable to manipulate herself properly to sit on the toilet and ended up on the floor.? She states she was there for at least an hour maybe longer.? Her extremities are quite cold.? She denies injury.? She denies chest pain or shortness of breath.? She does have some chronic back pain which is present and not significantly worsened from normal.? Patient denies any nausea or vomiting.? No loss of bowel or bladder control.? No other new GI or urinary symptoms.? She states she was having quite a bit of urinary frequency with very large amounts of urination when she was in the hospital for hyponatremia but that has resolved as her sodium improved.? Patient denies any fevers, no cold cough or congestion.? She notes that her neuropathy has been flaring more frequently and it is very difficult for her to feel her feet.? She has had no prior back surgeries but had a hysterectomy in the 80s as well as an ankle repair.? She denies tobacco, occasional alcohol with no illicit.? She is not allergic to medications.? She has established with primary care locally with Dr. Spaulding.? S he does live alone independently, she retired in January and moved across country from [place].? She does have a brother who lives in [facility].? The patient is stable and in no distress upon admit her vital signs are stable temp 97.5?, BP 144/83, HR 77, R 18, O2 saturation 100% on room air.? Patient has no WBC but does have neutrophils 8000.? Patient has hyponatremia again but not as severe as last time previous sodium was 113 on admit today sodium 129, chloride 91, glucose 131. Patient's troponin was slightly elevated upon admit. BNP 902, total protein 8.5, procalcitonin is negative, urinalysis was negative for infection.? Patient had a Fitzgerald placed in ED, head CT was negative for intracranial processes, chest x-ray was negative for any cardiopulmonary acute processes, patient admitted for failure to thrive, recurrent falls, mild hyponatremia acute on chronic, and elevated troponin. 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 Reason For Exam: 10 pound weight loss in last month Discharge provider: Sarmad Womack MD Summary Hospital Course Discharge Diagnosis: 1. 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 Possible c3-c4 cervical spinal stenosis 3. Lumbar stenosis 4. 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 HTN 6. Type 2 Diabetes 7. Hyperlipidemia 8. Peripheral neuropathy, per patient secondary to diabetes Hospital Course: Ms. Vasquez was admitted with new weakness and clumsiness. She had recently been admitted to this hospital 1-2 weeks ago for symptomatic hyponatremia with sodium of 113. She required 3% saline, she had HCTZ stopped, but overall she appeared near euvolemic, and it was thought she had a component of SIADH. She was able to ambulate on her own on discharge. She had negative head CT, chest xray, and normal TSH during that workup. She notes a few days prior to this admission she became weaker, she noted difficulty with maneuvering her legs. She had a fall on her knees. Her chronic back pain worsened. Her chronic lower extremity numbness worsened. She was found to have spastic lower extremities, with splayed toes bilaterally, and dorsiflexed toes. Stat MRI of the spine revealed a T9 mass with central canal stenosis. Lumbar spine also showed stenosis and degenerative changes. MRI head showed no acute brain abnormalities, but incidental note was made of partially imaged c3-c4 with concern for central stenosis with recommendation to consider cervical imaging. She was ordered for 10mg IV dexamethasone. Orthopedic recommended transfer. She was accepted at [facility] for further workup Of note, she has not had oncologic workup at this hospital to evaluate for pr imary source of mass in thoracic spine. She was informed of the finding of this thoracic mass. After this she did then mention that two years ago she was having back pain issues. She had imaging, reportedly an MRI done that showed an abnormality for which she was recommended to have a needle biopsy. She says COVID pandemic then happened and she tried to forget about this issue. She does not have her records from [place] nor does she remember the doctors name but she was seen in [place], [place] at the [facility]. Code: Full Exam Vital Signs (past 8 hours): - 04/21/21 11:00 04/21/21 11:20 04/21/21 16:00 Temperature 98.9 F 99.2 F Pulse Rate 78 80 Respiratory Rate 18 16 Blood Pressure 156/57 H 140/54 L Pulse Oximetry 98 98 95 04/21/21 17:01 Temperature Pulse Rate Respiratory Rate Blood Pressure Pulse Oximetry 99 Oxygen Delivery Method Room Air Oxygen Flow Rate 0 Narrative Exam Narrative: GEN: no acute distress HEART: Regular rate and rhythm without murmur LUNGS:Lungs clear to auscultation, no wheezes, rales, crackles ABD:soft, nontender, nondistended, no organomegaly NEURO: tenderness over the lower thoracic and lumbar spine, that is also bilaterally lateral to spine, decreased sensation in bilateral legs, feet in dorsiflexed position with movement and decreased strength 4/5, cranial nerves 2- 12 intact, upper extremities normal strength Objective Labs Result Diagrams: 04/20/21 10:06 04/21/21 05:45 Labs: Laboratory Results - last 24 hr 04/20/21 04/20/21 04/20/21 10:06 10:06 10:06 Sodium Potassium Chloride Carbon Dioxide BUN Creatinine Estimated GFR BUN/Creatinine Ratio Glucose Hemoglobin A1c 5.7 Calcium Magnesium 1.9 Troponin I NT-Pro-B Natriuret Pep 902 H 04/20/21 04/21/21 04/21/21 21:55 05:45 05:45 Sodium 128 L Potassium 4.1 Chloride 96 L Carbon Dioxide 26 BUN 14 Creatinine 0.54 Estimated GFR > 60.0 BUN/Creatinine Ratio 25.9 H Glucose 120 H Hemoglobin A1c Calcium 9.1 Magnesium Troponin I 0.020 0.015 NT-Pro-B Natriuret Pep PFSH Medical History Hypertension Peripheral neuropathy Type 2 diabetes mellitus Surgical History History of hysterectomy Family History Mother Heart attack Congestive heart failure Father Congestive heart failure Social History household members: none Smoking Status: Never smoker Discharge Plan Discharge Plan Disposition: er [facility] Hospital Discharge orders & Medications Follow up/Referrals: Sonia Spaulding PA-C [Primary Care Provider] - Discharge Data Primary Care Provider: Sonia Spaulding Quality VTE Deep Vein Thrombosis/Pulmonary Embolism Present on Admission: No MIPS - DC The patient has current or prior documentation of left ventricular ejection fraction (LVEF) less than 40%, or moderate or severely depressed left ventricular systolic function.: No
[2021-04-22] VITALS: O2SAT 95
--- NOTE | 2021-04-22 00:10 | PC.NURSE ---
Pt discharge to [facility] via EMS, report given to transport team.
== END 2021-04-22 00:05 | disposition short-term general hospital (02) | DRG 546 ==
LOC: ED 10:20 → AC 17:17
PROVIDERS: Nurse Practitioner Family; Admitting Provider Internal Medicine; Emergency Provider Emergency Medicine; PCP Physician Assistant; Referring Provider Emergency Medicine; Visit Provider Internal Medicine
DX: M48.8X4 Other specified spondylopathies, thoracic region (principal); G99.2 Myelopathy in diseases classified elsewhere; E22.2 Syndrome of inappropriate secretion of antidiuretic hormone; I10 Essential (primary) hypertension; E11.42 Type 2 diabetes mellitus with diabetic polyneuropathy; M48.04 Spinal stenosis, thoracic region; M48.02 Spinal stenosis, cervical region; M48.061 Spinal stenosis, lumbar region without neurogenic claudication; E86.1 Hypovolemia; Z20.822 Contact with and (suspected) exposure to COVID-19; Z79.84 Long term (current) use of oral hypoglycemic drugs; Z91.81 History of falling
CPT/HCPCS: 36415; 70450; 70551; 71045; 72158; 80048; 80053; 81001; 81003; 82550; 82962; 83036; 83735; 83880; 84145; 84484; 85025; 87635; 93005; 94760; 96374; 97161; 97530; 99284; C9803; A9579; J1100; J1815; J2060

== ENCOUNTER → 2021-06-10 10:19 | Outpatient (CLI) | payer MEDICARE, SELFPAY ==
[2021-04-20 15:44] VITALS: BMI 24.7
--- NOTE | 2021-06-10 | DI.RAD.S_ITS ---
PROCEDURE: XR THORACIC SPINE 2V INDICATIONS: Radiculopathy, thoracic region TECHNIQUE: 2 views of the thoracic spine were acquired. COMPARISON: [facility], CR, XR CHEST 1V, 04/20/2021, 11:24. FINDINGS: Bones: No acute, displaced fracture retropulsion. 12 pairs of ribs are noted, and appear intact where visualized. Posterior element fixation hardware with corpectomy T8-12. Soft tissues: No paravertebral stripe thickening. IMPRESSION: No acute osseous abnormality. Dictated by: Riaz Kurtz M.D. on 06/10/2021 at 11:47 Approved by: Riaz Kurtz M.D. on 06/10/2021 at 11:49
== END ==
PROVIDERS: PCP Physician Assistant; Referring Provider Orthopaedic Surgery; Visit Provider Orthopaedic Surgery
DX: M54.14 Radiculopathy, thoracic region (principal)
CPT/HCPCS: 72070

== ENCOUNTER → 2022-04-27 12:31 | Outpatient (CLI) | payer MEDICARE, SELFPAY ==
[2021-04-20 15:44] VITALS: BMI 24.7
--- NOTE | 2022-04-27 12:34 | DI.MG.S_ITS ---
BILATERAL DIGITAL SCREENING MAMMOGRAM 3D/2D WITH CAD: 04/27/2022 CLINICAL: Baseline exam. Routine screening. No prior exams were available for comparison. Both breasts are extremely dense, which lowers the sensitivity of mammography (category d />75% glandular tissue). Current study was also evaluated with a Computer Aided Detection (CAD) system. There are benign calcifications in both breasts. There also are benign vascular calcifications in both breasts. No significant masses, calcifications, or other findings are seen in either breast. IMPRESSION: BENIGN There is no mammographic evidence of malignancy. A 1 year screening mammogram is recommended. Based on the Tyrer Cuzick model (a risk assessment model) the patient's lifetime risk is 7.6% and her 10 year risk is 6.2%. According to the ACR, ACS, and NCCN guidelines, an annual breast MRI exam along with mammogram is recommended if the patient's lifetime risk is 20% or greater. This exam was interpreted at Station ID: [id number]. NOTE: For mammograms, a report in lay terms will be sent to the patient. Approximately 15% of breast malignancies will not be visualized mammographically. In the management of a palpable breast mass, a negative mammogram must not discourage biopsy of a clinically suspicious lesion. Electronically Signed By: Chris hernandez/jose:04/27/2022 14:52:56 letter sent: Normal Exam ACR BI-RADS Category 2: Benign Finding(s) [id number]
== END ==
PROVIDERS: PCP Physician Assistant; Referring Provider Physician Assistant; Visit Provider Physician Assistant
DX: M81.0 Age-related osteoporosis without current pathological fracture (principal); Z12.31 Encounter for screening mammogram for malignant neoplasm of breast; Z13.820 Encounter for screening for osteoporosis; Z78.0 Asymptomatic menopausal state; K92.9 Disease of digestive system, unspecified; Z87.311 Personal history of (healed) other pathological fracture; Z90.710 Acquired absence of both cervix and uterus
CPT/HCPCS: 77063; 77067; 77080

== ENCOUNTER → 2022-04-30 09:38 | Outpatient (CLI) | payer MEDICARE, SELFPAY ==
[2021-04-20 15:44] VITALS: BMI 24.7
[2022-04-30 10:48] LABS: Hemoglobin A1C% w Est Avg Glu 6.2 % (4.0-6.0)
[2022-04-30 10:56] LABS: Alanine Aminotransferase 25 IU/L (<35); Albumin 4.5 g/dL (3.5-5.0); Albumin Globulin Ratio 1.6 (1.0-2.8); Alkaline Phosphatase 62 U/L (38-126); Aspartate Aminotransferase 28 IU/L (14-36); BUN Creatinine Ratio 18.5 (6-22); Bilirubin Total 0.5 mg/dL (0.2-1.3); Blood Urea Nitrogen 12 mg/dL (7-17); Calcium 9.6 mg/dL (8.4-10.2); Carbon Dioxide 27 mmol/L (22-32); Chloride 94 mmol/L (98-107); Cholesterol 180 mg/dL (140-199); Estimated Glomerular Filt Rate > 60 mL/min (>60); Globulin 2.9 g/dL (1.7-4.1); Glucose 115 mg/dL (80-110); HDL Cholesterol 66 mg/dL (40-60); HEMOLYSIS < 15 (0-50); LDL Cholesterol Calculated 99 mg/dL (<100); Potassium 4.6 mmol/L (3.4-5.1); Sodium 130 mmol/L (137-145); Total Protein 7.4 g/dL (6.3-8.2); Triglycerides 77 mg/dL (35-150)
[2022-04-30 11:19] LABS: Vitamin D 25 Hydroxy (D3) 39.7 ng/mL (30.0-100.0)
[2022-04-30 11:24] LABS: TSH w/ Reflex to FT4 3.58 uIU/mL (0.47-4.68)
[2022-04-30 12:01] LABS: Folate > 20.0 ng/mL (2.76-20.0); Vitamin B12 794 pg/mL (239-931)
[2022-04-30 12:21] LABS: Creatinine Urine Random 28.8 mg/dL
[2022-04-30 12:27] LABS: Microalbumi Creatinin Ratio Ur 76.3 ug/mg CR (<30); Microalbumin Urine Random 2.2 mg/dL (0-1.6)
== END ==
PROVIDERS: PCP Family Medicine; Referring Provider Family Medicine; Visit Provider Family Medicine
DX: E11.40 Type 2 diabetes mellitus with diabetic neuropathy, unspecified (principal); G60.9 Hereditary and idiopathic neuropathy, unspecified; E87.1 Hypo-osmolality and hyponatremia; I10 Essential (primary) hypertension; R63.5 Abnormal weight gain; E56.9 Vitamin deficiency, unspecified
CPT/HCPCS: 36415; 80053; 80061; 82043; 82306; 82570; 82607; 82746; 83036; 84443

== ENCOUNTER → 2022-08-20 08:55 | Outpatient (CLI) | payer MEDICARE, SELFPAY ==
[2021-04-20 15:44] VITALS: BMI 24.7
[2022-08-20 11:45] LABS: Hemoglobin A1C% w Est Avg Glu 6.4 % (4.0-6.0)
[2022-08-20 11:58] LABS: Alanine Aminotransferase 23 IU/L (<35); Albumin 4.6 g/dL (3.5-5.0); Albumin Globulin Ratio 1.9 (1.0-2.8); Alkaline Phosphatase 66 U/L (38-126); Aspartate Aminotransferase 27 IU/L (14-36); BUN Creatinine Ratio 17.5 (6-22); Bilirubin Total 0.5 mg/dL (0.2-1.3); Blood Urea Nitrogen 10 mg/dL (7-17); Calcium 9.4 mg/dL (8.4-10.2); Carbon Dioxide 30 mmol/L (22-32); Chloride 94 mmol/L (98-107); Cholesterol 186 mg/dL (140-199); Estimated Glomerular Filt Rate > 60 mL/min (>60); Globulin 2.4 g/dL (1.7-4.1); Glucose 107 mg/dL (80-110); HDL Cholesterol 69 mg/dL (40-60); HEMOLYSIS < 15 (0-50); LDL Cholesterol Calculated 103 mg/dL (<100); Potassium 5.1 mmol/L (3.4-5.1); Sodium 130 mmol/L (137-145); Triglycerides 69 mg/dL (35-150)
[2022-08-20 11:59] LABS: Creatinine Urine Random 29.4 mg/dL
[2022-08-20 12:04] LABS: Microalbumi Creatinin Ratio Ur 71.4 ug/mg CR (<30); Microalbumin Urine Random 2.1 mg/dL (0-1.6)
== END ==
PROVIDERS: PCP Family Medicine; Referring Provider Family Medicine; Visit Provider Family Medicine
DX: E11.40 Type 2 diabetes mellitus with diabetic neuropathy, unspecified (principal); E87.1 Hypo-osmolality and hyponatremia; I10 Essential (primary) hypertension
CPT/HCPCS: 36415; 80053; 80061; 82043; 82570; 83036

== ENCOUNTER → 2022-12-31 08:59 | Outpatient (CLI) | payer MEDICARE, SELFPAY ==
[2021-04-20 15:44] VITALS: BMI 24.7
[2022-12-31 10:21] LABS: Add Manual Diff / Slide Review NO; Basophils Absolute Auto 0 /uL (0-100); Basophils Percent Auto 0.1 % (0-2); Eosinophils Absolute Auto 100 /uL (0-450); Eosinophils Percent Auto 1.8 % (2-4); Hemoglobin 13.7 g/dL (12.0-16.0); Lymphocytes Absolute Auto 400 /uL (1100-4500); Lymphocytes Percent Auto 8.4 % (25-40); Mean Corpuscular HGB Conc 34.3 % (30-36); Mean Corpuscular Volume 84.6 fL (80-100); Monocytes Absolute Auto 200 /uL (0-900); Monocytes Percent Auto 5.6 % (3-14); Neutrophils Absolute Auto 3600 /uL (1500-7000); Neutrophils Percent Auto 84.1 % (50-75); Platelet Count 159 X10^3/uL (150-400); Red Blood Cell Count 4.73 X10^6/uL (4.0-5.2); Red Cell Distribution Width 14.8 % (11.6-14.8); White Blood Cell Count 4.3 X10^3/uL (4.5-11.0)
[2022-12-31 10:35] LABS: Alanine Aminotransferase 32 IU/L (<35); Albumin 4.6 g/dL (3.5-5.0); Albumin Globulin Ratio 1.6 (1.0-2.8); Alkaline Phosphatase 65 U/L (38-126); Aspartate Aminotransferase 36 IU/L (14-36); BUN Creatinine Ratio 17.9 (6-22); Bilirubin Total 0.5 mg/dL (0.2-1.3); Blood Urea Nitrogen 12 mg/dL (7-17); Calcium 9.8 mg/dL (8.4-10.2); Carbon Dioxide 30 mmol/L (22-32); Chloride 92 mmol/L (98-107); Estimated Glomerular Filt Rate > 60 mL/min (>60); Globulin 2.8 g/dL (1.7-4.1); Glucose 127 mg/dL (80-110); HEMOLYSIS < 15 (0-50); Sodium 130 mmol/L (137-145); Total Protein 7.4 g/dL (6.3-8.2)
[2022-12-31 10:36] LABS: HEMOLYSIS < 15 (0-50); Iron 61 ug/dL (37-170)
[2022-12-31 10:41] LABS: Potassium 5.4 mmol/L (3.4-5.1)
[2022-12-31 10:48] LABS: Percent Iron Saturation 14 % (15-50); Total Iron Binding Capacity 425 ug/dL (265-497); Transferrin 317 mg/dL (206-381)
[2022-12-31 10:53] LABS: Vitamin D 25 Hydroxy (D3) 63.6 ng/mL (30.0-100.0)
[2022-12-31 15:44] LABS: Ferritin 9 ng/mL (11-264)
[2023-01-01 04:30] LABS: Labcorp Hemoglobin (Hb) A1c 6.2 % (4.8-5.6)
[2023-01-02 09:30] LABS: Parathyroid Hormone Int 37 pg/mL (15-65)
== END ==
PROVIDERS: PCP Family Medicine; Referring Provider Nurse Practitioner Family; Visit Provider Nurse Practitioner Family
DX: M80.8 Other osteoporosis with current pathological fracture (principal); R73.9 Hyperglycemia, unspecified; G60.9 Hereditary and idiopathic neuropathy, unspecified; I10 Essential (primary) hypertension
CPT/HCPCS: 36415; 80053; 82306; 82728; 83036; 83540; 83550; 83970; 85025

== ENCOUNTER → 2023-08-26 09:35 | Outpatient (CLI) | payer MEDICARE, SELFPAY ==
[2021-04-20 15:44] VITALS: BMI 24.7
[2023-08-26 10:21] LABS: Add Manual Diff / Slide Review NO; Basophils Absolute Auto 0 /uL (0-100); Basophils Percent Auto 0.3 % (0-2); Eosinophils Absolute Auto 100 /uL (0-450); Hematocrit 44.2 % (36-46); Hemoglobin 15.2 g/dL (12.0-16.0); Lymphocytes Absolute Auto 500 /uL (1100-4500); Lymphocytes Percent Auto 12.4 % (25-40); Mean Corpuscular HGB Conc 34.5 % (30-36); Mean Corpuscular Hemoglobin 32.8 PG (26-34); Monocytes Absolute Auto 200 /uL (0-900); Monocytes Percent Auto 5.7 % (3-14); Neutrophils Absolute Auto 3200 /uL (1500-7000); Neutrophils Percent Auto 78.6 % (50-75); Platelet Count 159 X10^3/uL (150-400); Red Blood Cell Count 4.65 X10^6/uL (4.0-5.2)
[2023-08-26 11:00] LABS: Alanine Aminotransferase 31 IU/L (<35); Albumin 4.5 g/dL (3.5-5.0); Albumin Globulin Ratio 1.6 (1.0-2.8); Alkaline Phosphatase 64 U/L (38-126); Aspartate Aminotransferase 34 IU/L (14-36); BUN Creatinine Ratio 18.8 (6-22); Bilirubin Total 0.7 mg/dL (0.2-1.3); Blood Urea Nitrogen 13 mg/dL (7-17); Calcium 9.8 mg/dL (8.4-10.2); Carbon Dioxide 30 mmol/L (22-32); Chloride 100 mmol/L (98-107); Estimated Glomerular Filt Rate > 60 mL/min (>60); Globulin 2.9 g/dL (1.7-4.1); Glucose 121 mg/dL (80-110); HEMOLYSIS < 15 (0-50); Iron 138 ug/dL (37-170); Sodium 135 mmol/L (137-145); Total Protein 7.4 g/dL (6.3-8.2)
[2023-08-26 11:10] LABS: Percent Iron Saturation 45 % (15-50); Total Iron Binding Capacity 308 ug/dL (265-497); Transferrin 255 mg/dL (206-381)
[2023-08-26 11:36] LABS: Ferritin 30 ng/mL (11-264)
[2023-08-27 06:32] LABS: Cholesterol HDL Ratio 2.8 ratio (0.0-4.4); Cholesterol,Total 209 mg/dL (100-199); HDL Cholesterol 75 mg/dL (>39); LDL Cholesterol Cal 121 mg/dL (0-99); Triglycerides 72 mg/dL (0-149); VLDL Cholesterol Cal 13 mg/dL (5-40)
== END ==
LOC: LAB 09:36
PROVIDERS: PCP Nurse Practitioner Family; Referring Provider Nurse Practitioner Family; Visit Provider Nurse Practitioner Family
DX: R73.9 Hyperglycemia, unspecified (principal); E78.5 Hyperlipidemia, unspecified; E61.1 Iron deficiency; E87.5 Hyperkalemia
CPT/HCPCS: 36415; 80053; 80061; 82728; 83036; 83540; 83550; 85025

== ENCOUNTER 2023-10-13 11:49 | Inpatient (IN) | payer MEDICARE, SELFPAY ==
[2021-04-20 15:44] VITALS: BMI 24.7
[2023-10-13] VITALS (20 sets, daily range): BP systolic 166–208; BP diastolic 77–93; PULSE 79–103; RESP 14–24; TEMP 36.8; O2SAT 93–99; BMI 25.7
--- NOTE | 2023-10-13 12:23 | DI.RAD.S_ITS ---
PROCEDURE: XR CHEST 1V INDICATIONS: chest pain TECHNIQUE: One view of the chest was acquired. COMPARISON: [facility], CR, XR CHEST 1V, 04/20/2021, 11:24. FINDINGS: Surgical changes and devices: Thoracolumbar fixation rods. Lungs and pleura: Lungs are clear. No pleural effusions or pneumothorax. Mediastinum: Mediastinal contours appear normal. Heart size is mildly prominent. Bones and chest wall: No suspicious bony lesions. Overlying soft tissues appear unremarkable. IMPRESSION: No acute pulmonary process. Dictated by: Desiree Morales M.D. on 10/13/2023 at 12:48 Approved by: Desiree Morales M.D. on 10/13/2023 at 12:48
[2023-10-13 13:02] LABS: Add Manual Diff / Slide Review NO; Basophils Absolute Auto 0 /uL (0-100); Basophils Percent Auto 0.1 % (0-2); Eosinophils Absolute Auto 0 /uL (0-450); Eosinophils Percent Auto 0.1 % (2-4); Hematocrit 42.8 % (36-46); Hemoglobin 14.8 g/dL (12.0-16.0); Lymphocytes Absolute Auto 300 /uL (1100-4500); Lymphocytes Percent Auto 4.3 % (25-40); Mean Corpuscular HGB Conc 34.6 % (30-36); Mean Corpuscular Hemoglobin 32.7 PG (26-34); Mean Corpuscular Volume 94.4 fL (80-100); Monocytes Absolute Auto 300 /uL (0-900); Monocytes Percent Auto 3.8 % (3-14); Neutrophils Absolute Auto 6300 /uL (1500-7000); Neutrophils Percent Auto 91.7 % (50-75); Platelet Count 166 X10^3/uL (150-400); Red Blood Cell Count 4.54 X10^6/uL (4.0-5.2); Red Cell Distribution Width 12.8 % (11.6-14.8); White Blood Cell Count 6.9 X10^3/uL (4.5-11.0)
[2023-10-13 13:10] LABS: Prothrombin Time 11.7 SECONDS (9.4-12.5)
[2023-10-13 13:12] LABS: Alanine Aminotransferase 35 IU/L (<35); Alkaline Phosphatase 62 U/L (38-126); Aspartate Aminotransferase 53 IU/L (14-36); Bilirubin Total 0.8 mg/dL (0.2-1.3); Blood Urea Nitrogen 15 mg/dL (7-17); Calcium 9.6 mg/dL (8.4-10.2); Carbon Dioxide 27 mmol/L (22-32); Chloride 100 mmol/L (98-107); Creatine Kinase 709 U/L (30-135); Estimated Glomerular Filt Rate > 60 mL/min (>60); Globulin 2.5 g/dL (1.7-4.1); Glucose 154 mg/dL (80-110); HEMOLYSIS < 15 (0-50); Lipase 55 U/L (23-300); Magnesium 1.9 mg/dL (1.6-2.3); Potassium 3.8 mmol/L (3.4-5.1); Sodium 135 mmol/L (137-145); Total Protein 7.5 g/dL (6.3-8.2)
[2023-10-13 13:13] LABS: PTT Partial Thromboplastin Tim 30 SECONDS (25.1-36.5)
[2023-10-13 13:24] LABS: Troponin I < 0.012 ng/mL (0.01-0.034)
--- NOTE | 2023-10-13 13:42 | ED_ITS ---
HPI - Fall General Chief Complaint: Fall Stated Complaint: has fallen 3x, speech delay Time Seen by Provider: 10/13/23 12:56 Source: patient Mode of arrival: Family Vehicle History of Present Illness HPI Narrative: 72-year-old woman with a history of diet-controlled diabetes, hypertension, peripheral neuropathy who lives independently and called her friend to bring her to the emergency department because she is fallen at least 3 times in the last 24 hours and 2-3 times yesterday as well. She describes no specific reason for the fall all the sudden she just ends up on the ground. She has not complaining of any trauma. Her friend notes that her speech seems a bit off and the patient feels that perhaps her right side is slightly weak. There was no recent fever cough or chills. She has not having any chest pain, orthopnea, dyspnea, nausea, vomiting or diarrhea. Related Data Home Medications Medication Instructions Recorded Confirmed fluticasone propionate 50 1 spray intranasal DAILY PRN 04/08/21 04/20/21 mcg/actuation nasal allergies. spray,suspension (Flonase Allergy Relief) gabapentin 600 mg tablet 1,200 mg PO BEDTIME 04/08/21 04/20/21 gabapentin 600 mg tablet mg PO QAM 04/08/21 04/08/21 (Neurontin) lisinopril 20 mg tablet 20 mg PO QAM 04/08/21 04/20/21 meloxicam 15 mg tablet (Mobic) 15 mg PO QAM 04/08/21 04/20/21 metformin 500 mg tablet 500 mg PO BID 04/08/21 04/20/21 Previous Rx's Medication Instructions Recorded sodium chloride 1,000 mg soluble 1,000 mg PO TID #30 tabs 04/11/21 tablet Allergies Allergy/AdvReac Type Severity Reaction Status Date / Time No Known Drug Allergies Allergy Verified 04/08/21 14:34 Review of Systems Review of Systems Narrative: Pertinent positive and negative findings as per HPI Patient History Medical History Peripheral neuropathy Type 2 diabetes mellitus Hypertension Surgical History History of hysterectomy Family History Mother Heart attack Congestive heart failure Father Congestive heart failure Social History household members: none Smoking Status: Never smoker Smoking Status: Never smoker alcohol intake frequency: a few times a week Substance Use Type: does not use Exam Initial Vital Signs Initial Vital Signs: Vital Signs Pulse Rate 103 H 10/13/23 12:07 Pulse Oximetry 95 10/13/23 12:07 General: Healthy appearing, in no acute distress. Able to give a complete and coherent history. Well-nourished well-developed HEENT: Moist mucous membranes, normal sclera with reactive pupils, Respiratory: Lungs are clear to auscultation, no wheezing no rales no rhonchi. Full and symmetrical air movement Cardiac: Regular rate and rhythm no murmurs no bruits Abdomen: Soft, nontender, good bowel tones, no flank pain Skin: Warm and dry, no rashes Neurologic: Verbally slightly slowed, some word-finding difficulty, subtle weakness right upper extremity right lower extremity Extremities: No trauma, well perfused Psych: Cooperative, appropriate insight and affect NIH Stroke Scale/Score (NIHSS) on 10/13/2023 RESULT SUMMARY: 5 points NIH Stroke Scale INPUTS: 1A: Level of consciousness ?> 0 = Alert; keenly responsive 1B: Ask month and age ?> 0 = Both questions right 1C: 'Blink eyes' & 'squeeze hands' ?> 0 = Performs both tasks 2: Horizontal extraocular movements ?> 0 = Normal 3: Visual dang ?> 0 = No visual loss 4: Facial palsy ?> 0 = Normal symmetry 5A: Left arm motor drift ?> 0 = No drift for 10 seconds 5B: Right arm motor drift ?> 1 = Drift, but doesn't hit bed 6A: Left leg motor drift ?> 0 = No drift for 5 seconds 6B: Right leg motor drift ?> 0 = No drift for 5 seconds 7: Limb Ataxia ?> 2 = Ataxia in 2 Limbs 8: Sensation ?> 0 = Normal; no sensory loss 9: Language/aphasia ?> 1 = Mild-moderate aphasia: some obvious changes, without significant limitation 10: Dysarthria ?> 1 = Mild-moderate dysarthria: slurring but can be understood 11: Extinction/inattention ?> 0 = No abnormality Course Orders Ordered: ED Orders 10/13/23 12:23 XR chest 1V Stat EKG-12 Lead Stat 10/13/23 12:45 Complete Blood Count AUTO DIFF Stat Comprehensive Metabolic Panel Stat Lipase Stat Magnesium Stat PTT Partial Thromboplastin Moisés Stat Prothrombin Time INR Stat Troponin & CK Cardiac Panel Stat 10/13/23 14:06 CT angio head and neck Stat CT head/brain wo con Stat 10/13/23 14:35 Urine Culture Stat Urine Microscopic Stat Vital Signs Vital signs: Vital Signs - 8 hr 10/13/23 12:07 10/13/23 12:08 10/13/23 12:08 Temperature Pulse Rate 103 H 100 H Respiratory Rate Blood Pressure 200/92 H Pulse Oximetry 95 96 Oxygen Delivery Method 10/13/23 12:17 10/13/23 12:30 10/13/23 12:31 Temperature 98.2 F Pulse Rate 91 H 86 Respiratory Rate 18 17 Blood Pressure 200/92 H 180/81 H Pulse Oximetry 99 97 Oxygen Delivery Method Room Air 10/13/23 12:31 10/13/23 13:00 10/13/23 13:00 Temperature Pulse Rate 86 86 Respiratory Rate 19 14 Blood Pressure 190/84 H Pulse Oximetry 97 97 Oxygen Delivery Method 10/13/23 13:30 10/13/23 13:30 10/13/23 14:00 Temperature Pulse Rate 84 Respiratory Rate 18 Blood Pressure 177/81 H 174/77 H Pulse Oximetry 97 Oxygen Delivery Method 10/13/23 14:00 10/13/23 14:34 10/13/23 14:36 Temperature Pulse Rate 87 86 85 Respiratory Rate 19 21 Blood Pressure Pulse Oximetry 97 96 99 Oxygen Delivery Method 10/13/23 14:36 10/13/23 15:00 10/13/23 15:34 Temperature Pulse Rate 79 92 H Respiratory Rate 16 24 Blood Pressure 208/93 H Pulse Oximetry 97 93 Oxygen Delivery Method 10/13/23 15:36 10/13/23 15:36 Temperature Pulse Rate 88 Respiratory Rate 17 Blood Pressure 194/90 H Pulse Oximetry 99 Oxygen Delivery Method MDM - Fall Lab Data 10/13/23 12:45 10/13/23 12:45 Labs: Lab Results 10/13/23 10/13/23 Range/Units 12:45 14:35 WBC 6.9 (4.5-11.0) X10^3/uL RBC 4.54 (4.0-5.2) X10^6/uL Hgb 14.8 (12.0-16.0) g/dL Hct 42.8 (36-46) % MCV 94.4 (80-100) fL MCH 32.7 (26-34) PG MCHC 34.6 (30-36) % RDW 12.8 (11.6-14.8) % Plt Count 166 (150-400) X10^3/uL Neut % (Auto) 91.7 H (50-75) % Lymph % (Auto) 4.3 L (25-40) % [place] % (Auto) 3.8 (3-14) % Eos % (Auto) 0.1 L (2-4) % Baso % (Auto) 0.1 (0-2) % Neut # (Auto) 6300 (0252-8798) /uL Lymph # (Auto) 300 L (3451-6097) /uL [place] # (Auto) 300 (0-900) /uL Eos # (Auto) 0 (0-450) /uL Baso # (Auto) 0 (0-100) /uL PT 11.7 (9.4-12.5) SECONDS INR 1.0 (0.9-1.3) APTT 30 (25.1-36.5) SECONDS Sodium 135 L (137-145) mmol/L Potassium 3.8 (3.4-5.1) mmol/L Chloride 100 (98-107) mmol/L Carbon Dioxide 27 (22-32) mmol/L BUN 15 (7-17) mg/dL Creatinine 0.50 L (0.52-1.04) mg/dL Estimated GFR > 60 (>60) mL/min BUN/Creatinine Ratio 30.0 H (6-22) Glucose 154 H (80-110) mg/dL Calcium 9.6 (8.4-10.2) mg/dL Magnesium 1.9 (1.6-2.3) mg/dL Total Bilirubin 0.8 (0.2-1.3) mg/dL AST 53 H (14-36) IU/L ALT 35 H (<35) IU/L Alkaline Phosphatase 62 (38-126) U/L Total Creatine Kinase 709 H (30-135) U/L Troponin I < 0.012 (0.01-0.034) ng/mL Total Protein 7.5 (6.3-8.2) g/dL Albumin 5.0 (3.5-5.0) g/dL Globulin 2.5 (1.7-4.1) g/dL Albumin/Globulin Ratio 2.0 (1.0-2.8) Lipase 55 (23-300) U/L Urine RBC 0-1/hpf (0-5/HPF) Urine WBC 1-5/hpf (0-5/HPF) Ur Squamous Epith Cells 1-5 /hpf (0-5/HPF) Urine Bacteria Many (>30) H (None) Ur Culture Indicated? Specimen cultured Vol Urine Centrifuged 10ml (spun) Urine Dip Bedside Urine Glucose Negative Bedside Urine Bilirubin - Negative Bedside Urine Ketone - Negative Urine Specific [place] 1.015 Bedside Urine Occult Blood + Bedside Urine pH 6.0 Bedside Urine Protein +/- 15 Bedside Urine Urobilinogen - Negative Bedside Urine Nitrite - Negative Bedside Urine Leukocytes +/- [address] head: Radiologist's Impression: PROCEDURE: CT HEAD/BRAIN WO CON INDICATIONS: stroke, >48hrs TECHNIQUE: Noncontrast 4.5 mm thick angled axial sections acquired from the foramen magnum to the vertex, with coronal and sagittal reformats. For radiation dose reduction, the following was used: automated exposure control, adjustment of mA and/or kV according to patient size. COMPARISON: [facility], MR, MR HEAD/BRAIN WO CON, 04/21/2021, 14:43. [facility], CT, CT ANGIO HEAD AND NECK, 10/13/2023, 14:29. [facility], CT, CT HEAD/BRAIN WO CON, 04/20/2021, 10:12. FINDINGS: Image quality: Diagnostic. CSF spaces: Basal cisterns are patent. No extra-axial fluid collections. The ventricles are symmetric in size and shape. Brain: Abnormal low density is seen within the left basal ganglia and within the left centrum semiovale, which is new compared to 2020. No intracranial bleeds or masses. There is cerebral volume loss for age, with resultant ventricular and sulcal prominence. There are periventricular and deep white matter chronic small vessel ischemic changes. There is intracranial internal carotid artery atherosclerosis. Skull and face: Calvarium and visualized facial bones appear intact, without suspicious lesions. Calcified scalp lesions are seen, which are regarded to be benign Sinuses: Visualized sinuses and mastoids are clear. IMPRESSION: There is abnormal low density seen within the left basal ganglia and the left centrum semiovale. Subacute infarct is suspected. No findings of superimposed hemorrhage are detected. If there is strong clinical suspicion for an acute stroke, please consider a brain MRI for further evaluation, as it is more sensitive (assuming that there is no contraindication to MRI). Dictated by: Mckinley Varghese M.D. on 10/13/2023 at 13:52 CT Angio head and neck: Radiologist's Impression: PROCEDURE: CT ANGIO HEAD AND NECK INDICATIONS: stroke Right side deficit, >48hrs TECHNIQUE: After the administration of intravenous contrast, 1 mm thick sections acquired from the aortic arch through the [place] of Cohen. 3-dimensional iupdmal-erpdqzmtb-mylnfwtuai (MIP) and/or volume rendering reformats were acquired of the central intracranial vasculature and neck separately. For radiation dose reduction, the following was used: automated exposure control, adjustment of mA and/or kV according to patient size. COMPARISON: [facility], CT, CT HEAD/BRAIN WO CON, 10/13/2023, 14:29. FINDINGS: Image quality: There is streak artifact seen through the level of the shoulders. Limited by bolus timing, with venous contamination. BRAIN: CSF spaces: Ventricles are normal in size and shape. Basal cisterns are patent. No extra-axial fluid collections. Brain: Bone density is again seen within the left basal ganglia and the left centrum semiovale. Skull and face: Calcified scalp lesions are again seen. Calvarium and facial bones appear intact, without suspicious lesions. Orbits appear normal. Sinuses: Sinuses and mastoids are clear. HEAD CT ANGIOGRAPHY: Anterior circulation: Intracranial internal carotid arteries are normal in size and flow. The flow within the paired anterior cerebral arteries is normal and symmetric. The flow within the middle cerebral arteries is normal and symmetric. The anterior communicating artery is seen. No aneurysms are seen. Posterior circulation: Visualized portions of the vertebral arteries demonstrate normal caliber, and join to form a normal appearing basilar artery. Flow within the posterior cerebral arteries is normal and symmetric. No aneurysms are seen. NECK CT ANGIOGRAPHY: Carotid system: The great vessels demonstrate a conventional anatomy as they arise from the aortic arch. The origins of the common carotid arteries appear patent. The common carotid arteries demonstrate normal caliber and courses. The bifurcation regions demonstrate atherosclerotic irregularity and calcification. There is 70-80% narrowing seen involving the proximal right internal carotid artery, with 4 of 0% narrowing involving the proximal left internal carotid artery. The more distal internal carotid arteries demonstrate normal course and caliber. Posterior circulation: The origins of the vertebral arteries both appear widely patent. The more superior extracranial portions of both vertebral arteries also demonstrate normal courses and calibers. The left vertebral artery is dominant to the right. Soft tissues: Visualized neck soft tissues demonstrate no suspicious abnormalities. Bones: No suspicious bony lesions. Visualized cervical spine appears normally aligned. At least moderate cervical spine degenerative change can be seen. IMPRESSION: No significant intracranial arterial abnormality is seen. Focal narrowings can be seen involving the origins of the internal carotid arteries, with 70-80% narrowing on the right and 40% narrowing on the left. Low density within the left basal ganglia and the left centrum semiovale. Subacute infarct is suspected. Additional findings: At least moderate cervical spine of degenerative change Any quantitative measurements of stenosis were performed using NASCET criteria. Dictated by: Mckinley Varghese M.D. on 10/13/2023 at 13:55 MDM Narrative Medical decision making narrative: CC: Right-sided weakness, multiple falls over the last 48 hours Complicating co-morbidities: Diet-controlled diabetes, hypertension, T9 thoracic vertebral tumor post removal Data collected from: patient Social determinants of health that may influence the patients condition: Patient lives independently Medical records reviewed: Discharge summary reviewed from April of 2021 Differential considered: Stroke, sepsis, metastatic lesions to brain Exam documented above, pertinent findings include: Patient's speech pattern and word-finding difficulties as well as fluency is diminished which she clearly notices and finds frustrating. She complains of no pain. Mild right-sided weakness that is fairly subtle. Remainder of exam is benign, she does not have significant abrasions or contusions or any bony or soft tissue tenderness is sequelae of the falls from the recent days Lab Test results independently reviewed as above. Pertinent findings: CBC is notable only for neutrophil percentage 91.7% with white blood cell in the normal range at 6.9. No anemia. Chemistries are unremarkable with the exception of minimal elevation to ALT and AST Total creatinine kinase is slightly elevated at 709 Troponin is undetectable Independently reviewed EKG: EKG shows sinus rhythm at a rate of 92. Leftward axis, no acute ischemic changes Imaging studies independently reviewed: Chest x-ray shows no acute pulmonary process CT scan of the head shows a subacute infarct in the left basal ganglia and left centrum semiovale CT angio of the head and neck confirms this and shows no rate limiting vessel abnormalities and no large vessel occlusions Discussion: 72-year-old woman comes in with 48 hours of subtle right-sided weakness and recurrent falls. Clinical concern for stroke is confirmed by a CT scan showing subacute stroke in the left basal ganglia and the left centrum semiovale. CT angiogram does not show a large vessel occlusion. She is some moderate internal carotid artery narrowing 70-80% on the right side and 40% on the left. Findings reviewed with the patient. Reason for hospitalization is reviewed. Care is accepted by Dr. Garcia and patient will be transferred to the floor MIPS:Stroke & Stroke Rehabilitation: Thrombolytic Therapy [x] The patient was diagnosed with subacute or acute ischemic stroke. An IV thrombolytic therapy was not initiated within 4.5 hours of last known well was >48 hours prior to ED presentation Discharge Plan Departure Patient Disposition: Admitted As Inpatient Clinical Impression: Stroke Qualifiers: CVA mechanism: unspecified Qualified Code(s): I63.9 - Cerebral infarction, unspecified Admit Date/Time: 10/13/23 18:12
--- NOTE | 2023-10-13 14:06 | DI.CT.S_ITS ---
PROCEDURE: CT ANGIO HEAD AND NECK INDICATIONS: stroke Right side deficit, >48hrs TECHNIQUE: After the administration of intravenous contrast, 1 mm thick sections acquired from the aortic arch through the [place] of Cohen. 3-dimensional tqkhdsj-cvmwlzowx-cvxhlxjdfv (MIP) and/or volume rendering reformats were acquired of the central intracranial vasculature and neck separately. For radiation dose reduction, the following was used: automated exposure control, adjustment of mA and/or kV according to patient size. COMPARISON: [facility], CT, CT HEAD/BRAIN WO CON, 10/13/2023, 14:29. FINDINGS: Image quality: There is streak artifact seen through the level of the shoulders. Limited by bolus timing, with venous contamination. BRAIN: CSF spaces: Ventricles are normal in size and shape. Basal cisterns are patent. No extra-axial fluid collections. Brain: Bone density is again seen within the left basal ganglia and the left centrum semiovale. Skull and face: Calcified scalp lesions are again seen. Calvarium and facial bones appear intact, without suspicious lesions. Orbits appear normal. Sinuses: Sinuses and mastoids are clear. HEAD CT ANGIOGRAPHY: Anterior circulation: Intracranial internal carotid arteries are normal in size and flow. The flow within the paired anterior cerebral arteries is normal and symmetric. The flow within the middle cerebral arteries is normal and symmetric. The anterior communicating artery is seen. No aneurysms are seen. Posterior circulation: Visualized portions of the vertebral arteries demonstrate normal caliber, and join to form a normal appearing basilar artery. Flow within the posterior cerebral arteries is normal and symmetric. No aneurysms are seen. NECK CT ANGIOGRAPHY: Carotid system: The great vessels demonstrate a conventional anatomy as they arise from the aortic arch. The origins of the common carotid arteries appear patent. The common carotid arteries demonstrate normal caliber and courses. The bifurcation regions demonstrate atherosclerotic irregularity and calcification. There is 70-80% narrowing seen involving the proximal right internal carotid artery, with 4 of 0% narrowing involving the proximal left internal carotid artery. The more distal internal carotid arteries demonstrate normal course and caliber. Posterior circulation: The origins of the vertebral arteries both appear widely patent. The more superior extracranial portions of both vertebral arteries also demonstrate normal courses and calibers. The left vertebral artery is dominant to the right. Soft tissues: Visualized neck soft tissues demonstrate no suspicious abnormalities. Bones: No suspicious bony lesions. Visualized cervical spine appears normally aligned. At least moderate cervical spine degenerative change can be seen. IMPRESSION: No significant intracranial arterial abnormality is seen. Focal narrowings can be seen involving the origins of the internal carotid arteries, with 70-80% narrowing on the right and 40% narrowing on the left. Low density within the left basal ganglia and the left centrum semiovale. Subacute infarct is suspected. Additional findings: At least moderate cervical spine of degenerative change Any quantitative measurements of stenosis were performed using NASCET criteria. Dictated by: Mckinley Varghese M.D. on 10/13/2023 at 13:55 Approved by: Mckinley Varghese M.D. on 10/13/2023 at 13:57
--- NOTE | 2023-10-13 14:06 | DI.CT.S_ITS ---
PROCEDURE: CT HEAD/BRAIN WO CON INDICATIONS: stroke, >48hrs TECHNIQUE: Noncontrast 4.5 mm thick angled axial sections acquired from the foramen magnum to the vertex, with coronal and sagittal reformats. For radiation dose reduction, the following was used: automated exposure control, adjustment of mA and/or kV according to patient size. COMPARISON: [facility], MR, MR HEAD/BRAIN WO CON, 04/21/2021, 14:43. [facility], CT, CT ANGIO HEAD AND NECK, 10/13/2023, 14:29. [facility], CT, CT HEAD/BRAIN WO CON, 04/20/2021, 10:12. FINDINGS: Image quality: Diagnostic. CSF spaces: Basal cisterns are patent. No extra-axial fluid collections. The ventricles are symmetric in size and shape. Brain: Abnormal low density is seen within the left basal ganglia and within the left centrum semiovale, which is new compared to 2020. No intracranial bleeds or masses. There is cerebral volume loss for age, with resultant ventricular and sulcal prominence. There are periventricular and deep white matter chronic small vessel ischemic changes. There is intracranial internal carotid artery atherosclerosis. Skull and face: Calvarium and visualized facial bones appear intact, without suspicious lesions. Calcified scalp lesions are seen, which are regarded to be benign Sinuses: Visualized sinuses and mastoids are clear. IMPRESSION: There is abnormal low density seen within the left basal ganglia and the left centrum semiovale. Subacute infarct is suspected. No findings of superimposed hemorrhage are detected. If there is strong clinical suspicion for an acute stroke, please consider a brain MRI for further evaluation, as it is more sensitive (assuming that there is no contraindication to MRI). Dictated by: Mckinley Varghese M.D. on 10/13/2023 at 13:52 Approved by: Mckinley Varghese M.D. on 10/13/2023 at 13:55
[2023-10-13 15:21] LABS: Bacteria Urine Many (>30); Culture Indicated Urine Specimen Cultured; RBC Urine 0-1/HPF (0-5/HPF); Squamous Epithelial Cell Urine 1-5 /HPF (0-5/HPF); Urine Volume 10mL (spun); WBC Urine 1-5/HPF (0-5/HPF)
--- NOTE | 2023-10-13 18:30 | DI.MRI.S_ITS ---
PROCEDURE: MR HEAD/BRAIN WO CON INDICATIONS: stroke TECHNIQUE: Noncontrast axial T1 spin echo, axial T2 fast spin echo, sagittal and axial FLAIR, coronal T2 fast spin echo, axial gradient echo, axial diffusion and ADC through the brain. COMPARISON: [facility], CT, CT ANGIO HEAD AND NECK, 10/13/2023, 14:29. [facility], CT, CT HEAD/BRAIN WO CON, 10/13/2023, 14:29. [facility], MR, MR HEAD/BRAIN WO CON, 04/21/2021, 14:43. FINDINGS: Image quality: Diagnostic CSF spaces: Basal cisterns are patent. Lateral ventricles are symmetric. Volume: Volume loss. Periventricular white matter signal abnormality most commonly seen with small vessel disease. These findings are moderate Brain: Moderate focal diffusion restriction in the left basal ganglia, freeman radiata and internal capsule. This corresponds to CT finding of hypoattenuation. There is associated FLAIR signal abnormality. No acute hematoma on gradient echo images. Craniofacial structures: Possible mastoid effusions. IMPRESSION: Moderate size diffusion restriction in the left basal ganglia, internal capsule, and coronal radiata corresponding to CT hypoattenuation, representing early subacute Infarct Mastoid effusions. Dictated by: Austyn Kwan M.D. on 10/13/2023 at 19:38 Approved by: Austyn Kwan M.D. on 10/13/2023 at 19:41
--- NOTE | 2023-10-13 18:31 | PM.HP.1 ---
History of Present Illness History of Present Illness Date Patient Seen: 10/13/23 Time Patient Seen: 18:31 Chief complaint: has fallen 3x, speech delay Narrative: The patient is a 72-year-old female who lives alone. She is history of diet-controlled diabetes 2, hypertension, and peripheral neuropathy. She lives in [place] independently. She has fallen 3 times in the last 2 days. She called her friend because of difficulty getting back up. She is noted weakness in her right arm and leg for the last 2 days as well. Her friend found her to also be somewhat mentally confused and brought her to the emergency department. There she had a fairly normal exam in the [facility] but CT did reveal a basal ganglia infarct. She denies any chest pain, dyspnea, nausea, vomiting or diarrhea. She has no history of stroke. She does not smoke. She details a history of a vertebral cancer which was treated in the past with radiation therapy. [facility] Medical History Peripheral neuropathy Type 2 diabetes mellitus Hypertension Surgical History History of hysterectomy Family History Mother Heart attack Congestive heart failure Father Congestive heart failure Social History household members: none Smoking Status: Never smoker Meds Home Medications and Allergies Home Medications Medication Instructions Recorded Confirmed Type fluticasone propionate 50 1 spray intranasal DAILY PRN 04/08/21 04/20/21 History mcg/actuation nasal allergies. spray,suspension (Flonase Allergy Relief) gabapentin 600 mg tablet 1,200 mg PO BEDTIME 04/08/21 04/20/21 History gabapentin 600 mg tablet mg PO QAM 04/08/21 04/08/21 History (Neurontin) lisinopril 20 mg tablet 20 mg PO QAM 04/08/21 04/20/21 History meloxicam 15 mg tablet (Mobic) 15 mg PO QAM 04/08/21 04/20/21 History metformin 500 mg tablet 500 mg PO BID 04/08/21 04/20/21 History sodium chloride 1,000 mg soluble 1,000 mg PO TID #30 tabs 04/11/21 04/20/21 Rx tablet Allergies Allergy/AdvReac Type Severity Reaction Status Date / Time No Known Drug Allergies Allergy Verified 04/08/21 14:34 Review of Systems Review of Systems Narrative: All else reviewed and otherwise unremarkable except as noted in the history and physical. Exam Vital Signs (past 8 hours): - 10/13/23 12:07 10/13/23 12:08 10/13/23 12:08 Temperature Pulse Rate 103 H 100 H Respiratory Rate Blood Pressure 200/92 H Pulse Oximetry 95 96 Oxygen Delivery Method 10/13/23 12:17 10/13/23 12:30 10/13/23 12:31 Temperature 98.2 F Pulse Rate 91 H 86 Respiratory Rate 18 17 Blood Pressure 200/92 H 180/81 H Pulse Oximetry 99 97 Oxygen Delivery Method Room Air 10/13/23 12:31 10/13/23 13:00 10/13/23 13:00 Temperature Pulse Rate 86 86 Respiratory Rate 19 14 Blood Pressure 190/84 H Pulse Oximetry 97 97 Oxygen Delivery Method 10/13/23 13:30 10/13/23 13:30 10/13/23 14:00 Temperature Pulse Rate 84 Respiratory Rate 18 Blood Pressure 177/81 H 174/77 H Pulse Oximetry 97 Oxygen Delivery Method 10/13/23 14:00 10/13/23 14:34 10/13/23 14:36 Temperature Pulse Rate 87 86 85 Respiratory Rate 19 21 Blood Pressure Pulse Oximetry 97 96 99 Oxygen Delivery Method 10/13/23 14:36 10/13/23 15:00 10/13/23 15:34 Temperature Pulse Rate 79 92 H Respiratory Rate 16 24 Blood Pressure 208/93 H Pulse Oximetry 97 93 Oxygen Delivery Method 10/13/23 15:36 10/13/23 15:36 10/13/23 16:00 Temperature Pulse Rate 88 Respiratory Rate 17 Blood Pressure 194/90 H 171/79 H Pulse Oximetry 99 Oxygen Delivery Method 10/13/23 16:00 10/13/23 16:30 10/13/23 16:30 Temperature Pulse Rate 81 82 Respiratory Rate 18 19 Blood Pressure 166/79 H Pulse Oximetry 98 98 Oxygen Delivery Method 10/13/23 17:00 10/13/23 17:00 10/13/23 17:30 Temperature Pulse Rate 82 Respiratory Rate 19 Blood Pressure 171/79 H 167/78 H Pulse Oximetry 97 Oxygen Delivery Method Room Air 10/13/23 17:30 10/13/23 18:00 10/13/23 18:00 Temperature Pulse Rate 81 79 Respiratory Rate 19 18 Blood Pressure 172/79 H Pulse Oximetry 97 97 Oxygen Delivery Method Oxygen Delivery Method Room Air Narrative Exam Narrative: NAD, alert and oriented, fluent speech, calm. Slightly slow to answer questions and follow commands. Normocephalic skull, EOMI, anicteric sclera, symmetric pupils. Oropharynx unremarkable, no droop. Neck supple, midline trachea, no adenopathy. Lungs clear, normal rate and effort. Heart regular, no murmur gallop or rub. Abdomen is soft, non distended and non tender. Extremities are free of edema. Skin is free of rash or lesions. Joints are not swollen or deformed. Judgment appears to be abnormal. Speech is normal, processing and answering seems to be delayed. She has not confused. Judgment appears to be somewhat abnormal. Cranial nerves are intact, EOMI, she has no facial droop. Her speech is clear. Negative pronator drift and good strength in the arm and leg on the right side in the gurney. Gait was not tested. Objective ECG Impression: NSR Imaging CT scan - head: Radiologist's impression: No significant intracranial arterial abnormality is seen. Focal narrowings can be seen involving the origins of the internal carotid arteries, with 70-80% narrowing on the right and 40% narrowing on the left. Low density within the left basal ganglia and the left centrum semiovale. Subacute infarct is suspected. Additional findings: At least moderate cervical spine of degenerative change Any quantitative measurements of stenosis were performed using NASCET criteria. Chest x-ray: Radiologist's impression: IMPRESSION: No acute pulmonary process. Labs 10/13/23 12:45 10/13/23 12:45 Labs: Laboratory Results - last 24 hr 10/13/23 10/13/23 12:45 14:35 WBC 6.9 RBC 4.54 Hgb 14.8 Hct 42.8 MCV 94.4 MCH 32.7 MCHC 34.6 RDW 12.8 Plt Count 166 Neut % (Auto) 91.7 H Lymph % (Auto) 4.3 L [place] % (Auto) 3.8 Eos % (Auto) 0.1 L Baso % (Auto) 0.1 Neut # (Auto) 6300 Lymph # (Auto) 300 L [place] # (Auto) 300 Eos # (Auto) 0 Baso # (Auto) 0 PT 11.7 INR 1.0 APTT 30 Sodium 135 L Potassium 3.8 Chloride 100 Carbon Dioxide 27 BUN 15 Creatinine 0.50 L Estimated GFR > 60 BUN/Creatinine Ratio 30.0 H Glucose 154 H Calcium 9.6 Magnesium 1.9 Total Bilirubin 0.8 AST 53 H ALT 35 H Alkaline Phosphatase 62 Total Creatine Kinase 709 H Troponin I < 0.012 Total Protein 7.5 Albumin 5.0 Globulin 2.5 Albumin/Globulin Ratio 2.0 Lipase 55 Urine RBC 0-1/hpf Urine WBC 1-5/hpf Ur Squamous Epith Cells 1-5 /hpf Urine Bacteria Many (>30) H Ur Culture Indicated? Specimen cultured Vol Urine Centrifuged 10ml (spun) Assessment & Plan Assessment & Plan narrative: 1. Acute ischemic stroke, present on admission and active. 2. History of 3 falls over 2 days secondary to stroke and right hemiparesis, present on admission and active. 3. DM 2, diet-controlled. Present on admission and stable. 4. Hypertension, present on admission and stable. 5. Mild hyponatremia, present on admission and active. 6. Acute encephalopathy likely secondary to stroke, present on admission and active. 7. Sacral ulcer, not stage. Present on admission and active. Plan: -complete stroke workup with MRI and carotid duplex ultrasound. -start aspirin, Plavix for 21 days. Then monotherapy. -start high dose atorvastatin. -permissive hypertension for 24-48 hours. -evaluation of swallow. -physical therapy and occupational therapy evaluations and discharge planning. The patient already declines rehabilitation services. She is full resuscitation, confirmed time of admission. Proxy decision making is her cousin, Charlie. She was admitted to inpatient status, her estimated need for hospital level surfaces we will exceed 2 midnights. Time Spent With Patient Time with patient: 30 to 49 minutes with 50% spent counseling/coordinating care Quality MIPS - Admit I confirm the patient?s Advance Care Plan is present, Code status is documented, Surrogate decision maker is in patient?s record [If Yes, STOP here]: Yes MIPS - Meds 'Current medications' to include all prescriptions, [id number] products, herbals, cannabis/cannabidiol products, and vitamin/mineral/dietary (nutritional) supplements. I have utilized all available resources to obtain, update, or review the patient?s current medications. [If Yes, STOP here]: Yes
--- NOTE | 2023-10-13 19:02 | PC.NURSE ---
Patient arrived to room 209 from ED at 1845 this evening. She is A&OX3, with some word finding, abnormal sentence fragments. She has clear speech, facial symmetry, Tongue midline, and she passes swallow eval. NIH 1.She has a slightly unsteady gait, and denies weakness to R side, she is able to hold all extremities up for 10 seconds without a drift. She denies n/v, visual changes, SOB. She does state she has a headache 5/10. Notified MD of BP 196/93. telemetry placed and she is oriented to the room. certified emergency vehicle technician arrived and transported patient to MRI at 1900. Endorsed admission assessment to oncoming shift.
[2023-10-13] MEDS: HEPARIN 5,000 UNIT/ML VIAL 5000 UNIT SUBCUT (20:24)
[2023-10-13] MEDS: ATORVASTATIN 20 MG TABLET 80 MG PO (20:25)
[2023-10-13] MEDS: DEXTROSE 5%-0.45% NS 1,000 ML 100 ML IV (20:25)
[2023-10-13] MEDS: ASPIRIN EC 81 MG TABLET PO (20:25)
[2023-10-13] MEDS: CLOPIDOGREL 75 MG TABLET PO (20:25)
[2023-10-14] VITALS (7 sets, daily range): BP systolic 153–183; BP diastolic 58–80; PULSE 70–83; RESP 16–22; TEMP 35.9–37.6; O2SAT 95–99
[2023-10-14 05:35] LABS: Add Manual Diff / Slide Review NO; Basophils Absolute Auto 0 /uL (0-100); Basophils Percent Auto 0.2 % (0-2); Eosinophils Absolute Auto 100 /uL (0-450); Eosinophils Percent Auto 1.5 % (2-4); Hematocrit 40.1 % (36-46); Hemoglobin 13.8 g/dL (12.0-16.0); Lymphocytes Absolute Auto 500 /uL (1100-4500); Lymphocytes Percent Auto 12.5 % (25-40); Mean Corpuscular HGB Conc 34.4 % (30-36); Mean Corpuscular Hemoglobin 32.3 PG (26-34); Mean Corpuscular Volume 94.1 fL (80-100); Monocytes Absolute Auto 300 /uL (0-900); Monocytes Percent Auto 7.6 % (3-14); Neutrophils Absolute Auto 3100 /uL (1500-7000); Neutrophils Percent Auto 78.2 % (50-75); Platelet Count 163 X10^3/uL (150-400); Red Blood Cell Count 4.26 X10^6/uL (4.0-5.2); Red Cell Distribution Width 12.7 % (11.6-14.8)
[2023-10-14 05:45] LABS: BUN Creatinine Ratio 34.1 (6-22); Blood Urea Nitrogen 15 mg/dL (7-17); Carbon Dioxide 26 mmol/L (22-32); Chloride 102 mmol/L (98-107); Estimated Glomerular Filt Rate > 60 mL/min (>60); Glucose 165 mg/dL (80-110); HEMOLYSIS < 15 (0-50); Potassium 3.5 mmol/L (3.4-5.1); Sodium 133 mmol/L (137-145)
[2023-10-14] MEDS: DEXTROSE 5%-0.45% NS 1,000 ML 100 ML IV ×2 (06:47→22:50)
--- NOTE | 2023-10-14 07:14 | P.PN_ITS ---
Subjective Subjective Interval history: From H&P: The patient is a 72-year-old female who lives alone. She is history of diet- controlled diabetes 2, hypertension, and peripheral neuropathy. She lives in [place] independently. She has fallen 3 times in the last 2 days. She called her friend because of difficulty getting back up. She is noted weakness in her right arm and leg for the last 2 days as well. Her friend found her to also be somewhat mentally confused and brought her to the emergency department. There she had a fairly normal exam in the [facility] but CT did reveal a basal ganglia infarct. She denies any chest pain, dyspnea, nausea, vomiting or diarrhea. She has no history of stroke. She does not smoke. She is improving. She scored SLUMS score 10/30. OT recommended inpatient rehab. She still feels weak. Exam Vital Signs (past 8 hours): - 10/14/23 00:28 10/14/23 04:53 Temperature 97.7 F 97.9 F Pulse Rate 75 76 Respiratory Rate 19 19 Blood Pressure 172/73 H 153/63 H Pulse Oximetry 95 98 Oxygen Flow Rate 0 0 Oxygen Delivery Method Room Air Oxygen Flow Rate 0 Narrative Exam Narrative: NAD, alert and oriented. Fluent speech. Flat affect. No droop. Negative pronator drift. Lungs are clear, normal rate and effort. Heart is regular, no murmur gallop or rub. Abdomen is soft, non distended. Extremities are free of edema. Objective Imaging MRI - head: Radiologist's impression: IMPRESSION: Moderate size diffusion restriction in the left basal ganglia, internal capsule, and coronal radiata corresponding to CT hypoattenuation, representing early subacute Infarct Mastoid effusions. Carotid US: Radiologist's impression: 1. Right internal carotid artery demonstrates less than 50 percent stenosis and is approaching the 50-69 percent criteria with a peak systolic velocity of 119 cm/S. 2. Left internal carotid artery demonstrates less than 50 percent stenosis. 3. Brachial pressures are 167-173 mmHg. Patient reports no history of hypertension. Recommend further workup. Labs 10/14/23 04:59 10/14/23 04:59 Labs: Laboratory Results - last 24 hr 10/13/23 10/13/23 10/14/23 12:45 14:35 04:59 WBC 6.9 4.0 L RBC 4.54 4.26 Hgb 14.8 13.8 Hct 42.8 40.1 MCV 94.4 94.1 MCH 32.7 32.3 MCHC 34.6 34.4 RDW 12.8 12.7 Plt Count 166 163 Neut % (Auto) 91.7 H 78.2 H Lymph % (Auto) 4.3 L 12.5 L [place] % (Auto) 3.8 7.6 Eos % (Auto) 0.1 L 1.5 L Baso % (Auto) 0.1 0.2 Neut # (Auto) 6300 3100 Lymph # (Auto) 300 L 500 L [place] # (Auto) 300 300 Eos # (Auto) 0 100 Baso # (Auto) 0 0 PT 11.7 INR 1.0 APTT 30 Sodium 135 L 133 L Potassium 3.8 3.5 Chloride 100 102 Carbon Dioxide 27 26 BUN 15 15 Creatinine 0.50 L 0.44 L Estimated GFR > 60 > 60 BUN/Creatinine Ratio 30.0 H 34.1 H Glucose 154 H 165 H Calcium 9.6 9.0 Magnesium 1.9 Total Bilirubin 0.8 AST 53 H ALT 35 H Alkaline Phosphatase 62 Total Creatine Kinase 709 H Troponin I < 0.012 Total Protein 7.5 Albumin 5.0 Globulin 2.5 Albumin/Globulin Ratio 2.0 Lipase 55 Urine RBC 0-1/hpf Urine WBC 1-5/hpf Ur Squamous Epith Cells 1-5 /hpf Urine Bacteria Many (>30) H Ur Culture Indicated? Specimen cultured Vol Urine Centrifuged 10ml (spun) [facility] Medical History Peripheral neuropathy Type 2 diabetes mellitus Hypertension Surgical History History of hysterectomy Family History Mother Heart attack Congestive heart failure Father Congestive heart failure Social History household members: none Smoking Status: Never smoker alcohol intake: current Assessment & Plan Assessment & Plan narrative: 1. Acute ischemic stroke, present on admission and active. 2. History of 3 falls over 2 days secondary to stroke and right hemiparesis, present on admission and active. 3. DM 2, diet-controlled. Present on admission and stable. 4. Hypertension, present on admission and stable. 5. Mild hyponatremia, present on admission and active. 6. Acute encephalopathy likely secondary to stroke, present on admission and active. 7. Sacral ulcer, not stage. Present on admission and active. Plan: -MRI and carotid duplex ultrasound completes and reveal BG CVA and non-critical carotid disease. -continue aspirin, Plavix for 21 days (DAPT). Then monotherapy. -continue high dose atorvastatin. -permissive hypertension for 24-48 hours. -physical therapy and occupational therapy evaluations and discharge planning. The patient agrees to and will be referred to rehabilitation services. She is full resuscitation, confirmed time of admission. Proxy decision making is her cousinDoug. Delcid VTE Deep Vein Thrombosis/Pulmonary Embolism Present on Admission: No
--- NOTE | 2023-10-14 09:00 | DI.US.S_ITS ---
PROCEDURE: US CAROTID DOPPLER BI INDICATIONS: CVA TECHNIQUE: Color and pulse Doppler interrogation was performed of both carotid systems, with image documentation and velocity measurements. COMPARISON: None. FINDINGS: Stenosis calculations are based on SRU (Society of Radiologists in Ultrasound) criteria. Right side: Brachial blood pressure: 167 mm Hg. Common carotid artery peak systolic velocity: 106 cm/sec. Internal carotid artery peak systolic velocity: 119 cm/sec. Internal carotid artery end diastolic velocity: 32 cm/sec. External carotid artery peak systolic velocity: 60 cm/sec. ICA/CCA peak systolic ratio: 2 . Sargent scale imaging description: Focus of eccentric plaque at the origin of the internal carotid artery and scattered mild atherosclerotic plaque. Percent internal carotid artery stenosis: Less than 50 percent stenosis . Vertebral artery: Flow direction is antegrade. Left side: Brachial blood pressure: 173 mm Hg. Common carotid artery peak systolic velocity: 108 cm/sec. Internal carotid artery peak systolic velocity: 81 cm/sec. Internal carotid artery end diastolic velocity: 21 cm/sec. External carotid artery peak systolic velocity: 67 cm/sec. ICA/CCA peak systolic ratio: 1.3 . Sargent scale imaging description: Mild atherosclerotic plaque Percent internal carotid artery stenosis: Less than 50 percent stenosis . Vertebral artery: Flow direction is antegrade. IMPRESSION: 1. Right internal carotid artery demonstrates less than 50 percent stenosis and is approaching the 50-69 percent criteria with a peak systolic velocity of 119 cm/S. 2. Left internal carotid artery demonstrates less than 50 percent stenosis. 3. Brachial pressures are 167-173 mmHg. Patient reports no history of hypertension. Recommend further workup. SRU Consensus Criteria * Normal: ICA PSV <125 cm/s, ICA EDV <40 cm/s, no plaque, ICA/CCA <2.0. * <50%: ICA PSV <125 cm/s, ICA EDV <40 cm/s, <50% diameter reducing plaque, ICA/CCA <2.0. * 50-69%: ICA PSV 125-230 cm/s, ICA EDV 40-100 cm/s, 50% or more diameter reducing plaque, ICA/CCA 2.0-4.0. * 70% to near occlusion: >230 cm/s, ICA EDV >100 cm/s, 50% or more diameter reducing plaque, ICA/CCA >4.0 * Near occlusion: low or non detectable PSV, variable EDV, ICA/CCA ratio. Dictated by: Ronald Farmer M.D. on 10/14/2023 at 9:06 Approved by: Ronald Farmer M.D. on 10/14/2023 at 9:17
[2023-10-14] MEDS: HEPARIN 5,000 UNIT/ML VIAL 5000 UNIT SUBCUT ×2 (09:40→19:44)
[2023-10-14] MEDS: CLOPIDOGREL 75 MG TABLET PO (09:40)
[2023-10-14] MEDS: ASPIRIN EC 81 MG TABLET PO (09:40)
--- NOTE | 2023-10-14 10:56 | PT.IIE ---
Current Diagnoses cerebral infarction, unspecified side (10/13/23) Surgical History (Last Reviewed 10/13/23 @ 18:33 by Olvin Garcia MD) History of hysterectomy Medical History (Last Reviewed 10/13/23 @ 18:33 by lOvin Garcia MD) Hypertension Peripheral neuropathy Type 2 diabetes mellitus Physical Therapy Inpatient Evaluation/Re-Eval M1 PT/OT-IP Prior Functional Status Start: 10/14/23 08:20 Freq: NEEDED Status: Active Protocol: Document 10/14/23 10:13 MB (Rec: 10/14/23 10:56 MB [id number]) Medical Review Prior Functional Status Medical History Reviewed Yes Diet/Fluid Consistency Regular Communication Pt reports no trouble at baseline Mobility and Gait I Activities of Daily Living and IADL's I, drove, took care of her dog and cat Social History Household Members none Living Arrangements House Number of Floors (Floors) One Floor Number of Stairs To Enter/Railing? 3 steps with right rail to enter Home Environment High Toilet,Walk in Shower Home Equipment Four Wheel Walker,Straight Cane,Shower Seat without Backrest,Hand Held Shower,Grab Bars In Shower Employment Status Retired M2 PT-IP Current Condition Start: 10/14/23 08:20 Freq: NEEDED Status: Active Protocol: Document 10/14/23 10:13 MB (Rec: 10/14/23 10:56 MB [id number]) Physical Therapy Current Condition Current Condition Evaluation Date 10/14/23 Treatment Diagnosis Left basal ganglia infarct M3 PT-IP Subjective Start: 10/14/23 08:20 Freq: NEEDED Status: Active Protocol: Document 10/14/23 10:13 MB (Rec: 10/14/23 10:56 MB [id number]) Subjective Physical Therapy Visit Type Type Initial Evaluation Visit Start Time 10:13 Visit Stop Time 10:42 Number of ARCHITECTURAL MODEL MAKER Visits 0 Physical Therapy Visit Comments Patient Comments Pt with word-finding challenges and cannot communicate all concerns, aphasia per PROJECT EXECUTIVE Therapy Pain Assessment Pain When Pain Assessed At Rest Pain Present Pain Present Denied Pain M4 PT-IP Mobility and Gait Start: 10/14/23 08:20 Freq: NEEDED Status: Active Protocol: Document 10/14/23 10:13 MB (Rec: 10/14/23 10:56 MB [id number]) PT-Bed Mobility Assessment Supine to Sit Supine to Sit Contact Guard Assistance,1 Person Assistance,Head of Bed Elevated,Bedrails Scooting Scooting to Edge of Bed Contact Guard Assistance PT-Transfer Assessment Sit to and From Stand Sit to and from Stand Contact Guard Assistance,1 Person Assistance,Use of Upper Extremities Equipment Transfer Assistive Device Gait Belt,Front Wheeled Walker Orthotic/Prosthetic Devices or Brace: No Transfers Transfer Destination Chair Transfer Technique Stepping Transfer Ability Level of Assist Contact Guard Assistance,1 Person Assistance,Use of Upper Extremities Comments Mobility Comments Pt is impulsive and moves very quickly to standing. She requires cues to move legs out to the side of the bed and she keeps her right hand in fist position to scoot to the EOB and does not tend to reach much with her right hand. Pt denies dizziness, light- headedness and pain. Head tends to rest in mild left SB and right rotation and oculomotor screen is negative. Gait Assessment Gait Gait Assistance Required: Contact Guard Assist Distance (Feet) 15 Able to Maintain Weight Bearing Status Yes During Gait Assistive Devices Assistive Device Gait Belt,Front Wheeled Walker Orthotic/Prosthetic Devices or Brace: No Gait Deviations General Gait Pattern Ataxic Factors Limiting Gait Function Factors Limiting Gait Function Difficulty Following Directions,Incoordination,Poor Balance,Poor Safety Awareness Comments Gait Comments Pt gait trains quickly and has decreased heel strike and toe push off right foot, she has one episode of ataxic stepping , decreased safety awareness with walker. Pt does not tend to reach back for chair or push up from bed with transfers when asked. PT-Balance Assessment Sitting Balance and Reactions Static Sitting Balance Ability Good Dynamic Sitting Balance Ability Good Standing Balance and Reactions Static Standing Balance Ability Good Dynamic Standing Balance Ability Good Device Used RW M5 PT-IP Objective Assessments Start: 10/14/23 08:20 Freq: NEEDED Status: Active Protocol: Document 10/14/23 10:13 MB (Rec: 10/14/23 10:56 MB [id number]) Orientation Orientation/Cognition Level of Alertness Confusional State Orientation Name,Birthday Language Function Ability Expressive Aphasia,Word Finding Difficulties Safety Awareness Decreased Safety Awareness Comments Pt has trouble answering all questions including history and PROJECT EXECUTIVE communicates with PT before eval that pt does have some aphasia and right lower quadrant of clock was not completed and so possible visual change or neglect as well. Eye tracking is normal with PT Gross Range of Motion Upper Extremity ROM Impairments Defer to OT Lower Extremity ROM Assessment Within Functional Limits Strength Upper Extremity Strength Assessment Right Impaired Shoulder 4- Lower Extremity Strength Assessment Right Impaired Hip 3 Knee 3+ Ankle 4+ Comments Strength Comments PT only checks right shoulder flexion and abduction and right is much weaker than left . Pt states that she is right hand dominant Coordination Assessment Assessment Finger to Nose Test Minimal Impairment Pronation/Supination Test Minimal Impairment Foot Tapping Test Moderate Impairment Heel on Lopes Test Minimal Impairment Muscle Tone Muscle Tone WNL Yes M6 PT-IP Treatment Start: 10/14/23 08:20 Freq: NEEDED Status: Active Protocol: Document 10/14/23 10:13 MB (Rec: 10/14/23 10:56 MB [id number]) Physical Therapy Treatment Education Education Provided Safety M7 PT-IP Assessment and Plan Start: 10/14/23 08:20 Freq: NEEDED Status: Active Protocol: Document 10/14/23 10:13 MB (Rec: 10/14/23 10:56 MB [id number]) PT Summary Assessment and Plan Potential Rehabilitation Potential Good Status of Condition at Evaluation Evolving Summary Impairments Strength,Balance,Coordination, Cognition,Bed Mobility, Transfers,Gait,Activity Tolerance Progress Towards Goals Progressing Toward Goals Assessment Summary Pt is a 72 y/o female presenting with some cognitive and speech challenges with PT as well as mild to moderate dysmetria, impulsivity, mild weakness and imbalance with transfers, standing and gait in setting of left basal ganglia infarct. Pt would be a great acute rehab candidate for all therapy disciplines in PT opinion and pt expresses concern about care for her dog , Franko, at home. Her family is retired and does not live in [place] and she has a neighbor, Laurent, who can feed the dog. She expresses that someone will need to stay with her dog in her home and she did have a rooming house inspector who did this in the past but she cannot express how she will be able to contact this person. Recommend ongoing PT to improve safety, transfers, balance and gait to maximize I . Pt lives alone, drives and cares for her dog and cat at home. Goals Bed Mobility Goal Independent Transfer Goal Independent,Cane,Front Wheeled Walker Gait Goal Independent,Cane,Front Wheel Walker Gait Distance 100 Other Goals Pt will ascend and descend 3 steps with right rail to allow safe home entry. Advance gait and balance with or without LRAD Days to Meet Goals 5 Frequency of Treatment Frequency Of Treatment Once a Day Treatment Plan Physical Therapy Treatment Plan Bed Mobility Training,Transfer Training,Gait Training, Therapeutic Exercise,Balance Retraining,Discharge Planning, Neuromuscular Re-ed, Coordination Retraining Weight Bearing Status Weight Bearing Status Weight Bear as Tolerated Recommendations To Nursing Amount of Assist Needed 1 Person Assist Discharge Recommendations PT Discharge Recommendations Acute Rehab Transportation Needs at Discharge Private Vehicle
--- NOTE | 2023-10-14 11:03 | ST.IPSLE ---
Visit Care Team Role Provider Type Traci Mei RN Primary Care Provider Non-Staff Specialty: Family Practice Address: [address] [place] [address], [id number] Email: Mayelin Pope MD Emergency Provider Physician Referring Provider Specialty: Emergency Medicine Address: [address] [place] [address] Email: Olvin Garcia MD Admit Provider Physician Attending Provider Specialty: Internal Medicine Address: [address] [place] [id number] Email: [email or web address] Current Diagnoses cerebral infarction, unspecified side (10/13/23) Past Medical History (Last Reviewed 10/13/23 @ 18:33 by Olvin Garcia MD) Hypertension (Medical) Peripheral neuropathy (Medical) Type 2 diabetes mellitus (Medical) Speech-Language Pathology Speech/Language Eval [employer] Adult Cognitive Linguistic Eval Start: 10/14/23 10:32 Freq: Status: Active Protocol: Document 10/14/23 10:32 CG (Rec: 10/14/23 11:02 [id number]) Adult Cognitive Linguistic Evaluation Session Time Visit Start Time 09:30 Visit Stop Time 10:30 Total Visit Minutes 60 Visit Information Visit Number 1 Referral Referring Provider Olvin Garcia Reason for Referral speech disturbances, cognitive changes Setting Assessment Location Acute Care Visit Type Note Type Initial evaluation Next Note Type Next Note Type Treatment Note Patient Information Identification Type Name Patient History Per H&P: The patient is a 72- year-old female who lives alone. She is history of diet -controlled diabetes 2, hypertension, and peripheral neuropathy. She lives in [place] independently. She has fallen 3 times in the last 2 days. She called her friend because of difficulty getting back up. She is noted weakness in her right arm and leg for the last 2 days as well. Her friend found her to also be somewhat mentally confused and brought her to the emergency department. There she had a fairly normal exam in the [facility] but CT did reveal a basal ganglia infarct . She denies any chest pain, dyspnea, nausea, vomiting or diarrhea. She has no history of stroke. She does not smoke . Pt was referred to for evaluation secondary to ongoing speech/language disturbances and some lingering confusion. 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 When asked to explain speech difficulties, pt stated that she began having difficulty with speech on Wednesday evening. She explained that her difficulty is inconsistent because sometimes she will be able to speak just fine but other times she will get to the middle of a sentence and forget what she was going to say. Throughout explanation, the pt tended to use vague wording and occasional empty phrases to finish sentences when she appeared to be having word finding difficulties, such as and, um...that's just how it went, or um...that's pretty much everything. Her word finding difficulties did seem to be exacerbated by their being multiple stimuli, such as multiple staff/ students in the room and beeping of monitors, etc. SCHO[employer]GE LEAD TEACHER assisted in reducing stimuli by silencing monitors and TV during assessment, stepping back while nurse/student was asking questions to allow for the pt to only interact with one person at a time. This did seem to assist in attention and word-finding abilities. Pt appeared frustrated by word finding deficits, stating I' m normally articulate. She further stated that her biggest concern is to get home to her elderly dog, because she is concerned that he will feel abandoned. Because of this, she does not seem open to going to a SNF or acute rehab based on conversation with SCHO[employer]GE LEAD TEACHER today and conversation with hospitalist yesterday. Mental Status Alert,Responsive,Cooperative, Confused Assessment Oral Motor Examination Completed Yes Results No gross deficits noted Informal Assessment Receptive Language Normal Yes Expressive Language Normal No Expressive Language Impairment(s) Confrontation naming,Divergent naming,Expression of complex thoughts/ideas Pragmatic Language Normal Yes Speech Normal No: very mild phonemic paraphasias Cognition Normal No Cognitive Impairment(s) Attention,Short-term memory, Executive functioning,Problem solving Formal Assessment Standardized Test/Screener Type Quick Aphasia Battery (QAB) Results Both the Quick Aphasia Battery (QAB) and the [facility] Mental Status Examination (UMS) were administered. On the Quick Aphasia Battery, the pt scored the following: Word ozkvwkmgvgzvk64.00/10.00 Sentence gyydhvcnogyud11.00/10 .00 Word finding7.25/10.00 Grammatical construction8.75/ 10.00 Speech motor tdihrpesdsd19.00/ 10.00 Repetition9.17/10.00 Ubefjut62.00/10.00 QAB overall8.95/10.00 According to the authors of the QAB, overall scores between 7.5-8.89 correspond with mild aphasia. Based on the pt's ability to understand most complex language while presenting with deficits in naming, anomia, and use of vague (but semantically relevant) vocabulary, her presentation is most consistent with a mild expressive aphasia, specifically transcortical motor aphasia or Broca's aphasia. On the [facility] Mental Status Examination, the pt scored a 10/30. According to the authors of the SLUMS, scores between 27-30 are considered normal for someone with at least a high school education. Scores between 1 and 20 are considered indicative of dementia, though in this case indicative of cognitive impairment related to acute neurologic event. The pt demonstrated difficulty with short term memory for five item recall task, difficulty with divergent naming task, difficulty with problem solving (subtraction task), and difficulty with recall of short story and two-step directions. She also appears to present with lower right quadrant visual neglect based on her performance on the clock drawing task, in which the lower right quadrant of the clock was omitted. Findings/Results Language Function Mildly impaired Cognitive Function Moderately-severely impaired Findings Based on the results of the SLUMS and the QAB, the pt presents with mild aphasia and moderate-severe cognitive deficits at this time. Based on cognitive deficits, she will need assistance with all IADLs for safety. Recommend more thorough assessment of possible visual neglect and impacts of cognition on basic ADLs. Pt's speech-language deficits are mild; however, she would benefit from speech-language therapy to target word finding difficulties. Ideally, she would be a candidate for acute rehab. However, the pt is unlikely to be agreeable to this due to wanting to get home to take care of her dog. If returning home, highly recommend home health ST to begin speech-language interventions. Cognitive Communication Deficits Self-awareness of Cognitive- Predictive awareness (able to Communication Deficits predict problem; impact of impairments) Concomitant Factors Concomitant Factors Visual field neglect Impact on Functioning Activity Limits/Particip.Rest. Mild: Household Tasks Mod: Interpersonal Interactions Community Safety Risks Mod: Being Left Alone at Home Reacting to Emergency Sev: Managing Medication Traveling Alone in Community Prognosis Prognosis Fair Based on Cognitive status Plan of Care Speech-Language Treatment Yes Patient/Caregiver Education Described results of evaluation,Patient expressed understanding of evaluation, Patient expressed understanding of safety precautions Short Term Goals 1. Pt will benefit from education in word-finding strategies to reduce the impact of expressive aphasia and allow for communication of complex thoughts and ideas. 2. Pt will complete semantic- based exercises for aphasia (e .g., Semantic Feature Analysis , Verbal Network Strengthening Treatment) with 70% accuracy independently in order to strengthen her semantic network for improved retrieval of target words. Discharge Recommendations Inpatient rehab facility,Home with Home Health
--- NOTE | 2023-10-14 11:41 | OT.IP.EVAL ---
Current Diagnoses cerebral infarction, unspecified side (10/13/23) Past Medical History (Last Reviewed 10/13/23 @ 18:33 by Olvin Garcia MD) Hypertension Peripheral neuropathy Type 2 diabetes mellitus Surgical History (Last Reviewed 10/13/23 @ 18:33 by Olvin Garcia MD) History of hysterectomy Occupational Therapy Inpatient Evaluation/Re-Eval M1 PT/OT-IP Prior Functional Status Start: 10/14/23 11:43 Freq: NEEDED Status: Active Protocol: Document 10/14/23 11:43 [facility] (Rec: 10/14/23 12:07 [facility] [id number]) Medical Review Prior Functional Status Medical History Reviewed Yes Diet/Fluid Consistency Regular Communication Pt reports no trouble at baseline Mobility and Gait I Activities of Daily Living and IADL's I, drove, took care of her dog and cat Social History Household Members none Living Arrangements House Number of Floors (Floors) One Floor Number of Stairs To Enter/Railing? 3 steps with right rail to enter Home Environment High Toilet,Walk in Shower Home Equipment Four Wheel Walker,Straight Cane,Shower Seat without Backrest,Hand Held Shower,Grab Bars In Shower Employment Status Retired Additional Social History Comment Pt states has forearm crutches . M2 OT-IP Current Condition Start: 10/14/23 11:43 Freq: Status: Active Protocol: Document 10/14/23 11:43 [facility] (Rec: 10/14/23 12:07 [facility] [id number]) Occupational Therapy Current Condition Current Condition Evaluation Date 10/14/23 Treatment Diagnosis S/P Acute ischemic CVA Diagnosis Onset Date 10/13/23 M3 OT- IP Subjective and Pain Start: 10/14/23 11:43 Freq: Status: Active Protocol: Document 10/14/23 11:43 [facility] (Rec: 10/14/23 12:07 [facility] [id number]) OT- Subjective Occupational Therapy Visit Type Type Initial Evaluation Visit Start Time 11:00 Visit Stop Time 11:41 Occupational Therapy Visit Comments Patient Comments Pt agreed to get up and work with OT. Patient/Caregiver Goals Pt really wanting to go home to be with her pets but realizes would be best to go to acute rehab. OT Pain Assessment Pain When Pain Assessed At Rest Pain Present Pain Present Denied Pain M4 OT- IP ADL's Start: 10/14/23 11:43 Freq: Status: Active Protocol: Document 10/14/23 11:43 [facility] (Rec: 10/14/23 12:07 [facility] [id number]) OT [id number] Comments OT Self-Feeding Comments Not at meal time. OT ADL-Grooming Comments OT Grooming Comments Assist for set-up due to weakness and decreased coordination with RUE. OT ADL-Oral Care Comments Oral Care Comments Not performed. 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 OT ADL-Toileting Comments OT Toileting Comments Pt not having to go at this time but will need assist for safety. OT ADL-Bathing Comments OT Bathing Comments Not performed. M5 OT- IP IADL's Start: 10/14/23 11:43 Freq: Status: Active Protocol: Document 10/14/23 11:43 [facility] (Rec: 10/14/23 12:07 [facility] [id number]) OT-Instrumental Activities of Daily Living Deficits IADL Deficits Identified Deficits Home Safety Awareness Awareness of Need for Assistance at Home Decreased Awareness Home Safety Comments Pt is insistent that she is fine at this time and mainly just worried about getting home to be with her pets. Medication Management Medication Management Comments Pt would benefit from assist. Money Management Money Management Comments Pt would benefit from assist. Meal Preparation Meal Preparation Comments Pt would benefit from assist. Panel Cutter Panel Cutter Comments Pt will benefit from assist. Driving Driving Concerns Identified Regarding Safety M6 OT- IP Functional Cognition Start: 10/14/23 11:43 Freq: Status: Active Protocol: Document 10/14/23 11:43 [facility] (Rec: 10/14/23 12:07 [facility] [id number]) Cognitive Factors Limiting Selfcare Function Cognitive Ability Level of Alertness Alert Patient Orientation Name,Age,Birthday,Place, Situation Attention Span Ability Capable of Focused Attention, Capable of Sustained Attention Ability to Follow Commands Able to Follow One Step Commands with Increased Time, Able to Follow One Step Commands with Repetition Memory Description Short Term Impaired,Working Impaired Safety Awareness Underestimates Need for Assistance Cognitive Comments Cognitive Assessment Comments Pt at times impulsive and needing cues to slow down and take time to listen to the directions before initiating movements. Pt per SLUMS frm TAKER OFF 04/19 and main having difficulty with STM and problem solving needs. OT- Vision and Hearing OT- Hearing Assessment OT- Hearing Assessment WFL OT- Vision Assessment Visual Acuity Glasses All The Time Visual Attentiveness WFL Occular Pursuits WFL Visual Convergence WFL Visual [place] WFL Visual Spacial Neglect Right Vision Assessment Comments Pt states wears glasses for distance and able to read the clock accurately. M7 OT- IP Mobility and Balance Start: 10/14/23 11:43 Freq: Status: Active Protocol: Document 10/14/23 11:43 [facility] (Rec: 10/14/23 12:07 [facility] [id number]) OT-Transfer Assessment Sit to and From Stand Sit to and from Stand Contact Guard Assistance Transfers Transfer Ability Minimal Assistance,Moderate Assistance Technique Transfer Destination Chair Transfer Technique Stand Step Pivot Devices Transfer Assistive Devices None,Gait Belt Comments Mobility Comments CGA to stand and trial of pt walking without a device and very unsteady on her feet and leans and having loss of balance to the right and needing surfaces to hold onto. With use of FWW still needing at least CGA to SALINA for balance especially when she tires. OT- Balance Assessment Sitting Balance and Reactions Static Sitting Balance Ability Good Dynamic Sitting Balance Ability Fair Standing Balance and Reactions Static Standing Balance Ability Fair Dynamic Standing Balance Ability Poor M8 OT- IP Objective Assessments Start: 10/14/23 11:43 Freq: Status: Active Protocol: Document 10/14/23 11:43 [facility] (Rec: 10/14/23 12:07 [facility] [id number]) OT Strength Upper Extremity Strength Assessment Right Impaired Shoulder 4- Elbow 4- Forearm 3+ Wrist 3+ Hand 3+ OT- Coordination Assessment Upper Extremity Finger to Nose Test Right UE Impaired Finger Tapping Test Right UE Impaired Comments Coordination Comments Mildly increased time with right hand. Right hand 84 second which is well below her left hand of 27 seconds. Pt having difficulty with finger to thumb, and thumb to finger, in hand manipulation movements. OT Sensation Assessment Comments Summary Comments Intact for light touch. Decreased for right hand for proprioception and kinesthesia and neglecting use of her right hand while wendy/doffing her socks. Edema Edema Comments Right hand noted slightly more swollen then her left hand. M9 OT- IP Assessment and Plan Start: 10/14/23 11:43 Freq: Status: Active Protocol: Document 10/14/23 11:43 [facility] (Rec: 10/14/23 12:07 [facility] [id number]) OT Summary Assessment and Plan Potential Rehabilitation Potential Good Analytic Complexity at Evaluation Moderate Summary OT Impairments Range of Motion,Strength, Balance,Coordination, Functional Cognition, Functional Mobility,Self- Feeding,Grooming,Dressing, Toileting,Bathing,Toilet Transfers,Shower Transfers, Activity Tolerance Progress Towards Goals Slow Progress due to Medical Issues,Slow Progress due to Activity Tolerance,Slow Progress due to Cognition Assessment Summary Pt MOD complexity and main barrier are decreased coordination, strength, and smooth efficient movement for RUE, decreased balance, right neglect and difficulties with STM and problem solving due to recent CVA. Prior pt was completely independent and taking care of her pets at home. Pt will greatly benefit from acute rehab at this time . Goals Self-Feeding Goal Independent Grooming Goal Independent Dressing Goal Independent Toileting Goal Independent Bathing Goal Independent Toilet Transfer Goal Independent Shower Transfer Goal Independent Days to Meet Goals 20 Frequency of Treatment Frequency Of Treatment Once a Day Treatment Plan OT Treatment Plan ADL Training,Functional Cognition Training,Functional Mobility,Neuromuscular Re- education,Patient/Family Education,Discharge Planning Other Treatment Recommendations and Next standing ADL's, FMS Treatment Focus Discharge Recommendations OT Discharge Recommendations Acute Rehab Home Equipment Needs defer to acute rehab Transportation Needs at Discharge Private Vehicle
[2023-10-14] MEDS: POTASSIUM CHLORIDE 20 MEQ TAB PO (12:09)
--- NOTE | 2023-10-14 15:27 | PM.CN ---
History of Present Illness Consult details Date Patient Seen: 10/14/23 Time Patient Seen: 15:00 Chief complaint: has fallen 3x, speech delay Narrative: The patient is a 70-year-old female with diabetes, hypertension, and peripheral neuropathy who was admitted yesterday with an acute ischemic stroke. She apparently had fallen 3 times over 2 days and developed a pressure sore on her right buttock. A wound consultation was then obtained for further evaluation. The patient lives alone and is able to ambulate without difficulty. The patient denies having any pain or discomfort in her right buttock nor has she noted any drainage from the area. She has never had any similar problems in the past. Labs and hospital records were personally reviewed. Meds Home Medications and Allergies Home Medications Medication Instructions Recorded Confirmed Type gabapentin 600 mg tablet 1,200 mg PO BEDTIME 04/08/21 10/13/23 History gabapentin 600 mg tablet 600 mg PO QAM 04/08/21 10/13/23 History (Neurontin) Allergies Allergy/AdvReac Type Severity Reaction Status Date / Time No Known Drug Allergies Allergy Verified 04/08/21 14:34 Review of Systems Gastrointestinal Comments: Good appetite Neurologic Comments: Neuropathy Exam Vital Signs (past 8 hours): - 10/14/23 08:00 10/14/23 11:38 Temperature 96.7 F L Pulse Rate 73 83 Respiratory Rate 16 16 Blood Pressure 164/76 H 183/80 H Pulse Oximetry 99 97 Oxygen Flow Rate 0 0 Oxygen Delivery Method Room Air Oxygen Flow Rate 0 Const Other: Well-developed well-nourished female who is alert and oriented in no apparent distress Skin Other: Small stage III pressure ulcer involving right buttock, no sign of infection Objective Labs 10/14/23 04:59 10/14/23 04:59 Labs: Laboratory Results - last 24 hr 10/14/23 04:59 WBC 4.0 L RBC 4.26 Hgb 13.8 Hct 40.1 MCV 94.1 MCH 32.3 MCHC 34.4 RDW 12.7 Plt Count 163 Neut % (Auto) 78.2 H Lymph % (Auto) 12.5 L Canadian % (Auto) 7.6 Eos % (Auto) 1.5 L Baso % (Auto) 0.2 Neut # (Auto) 3100 Lymph # (Auto) 500 L Canadian # (Auto) 300 Eos # (Auto) 100 Baso # (Auto) 0 Sodium 133 L Potassium 3.5 Chloride 102 Carbon Dioxide 26 BUN 15 Creatinine 0.44 L Estimated GFR > 60 BUN/Creatinine Ratio 34.1 H Glucose 165 H Calcium 9.0 PFSH Medical History Peripheral neuropathy Type 2 diabetes mellitus Hypertension Surgical History History of hysterectomy Family History Mother Heart attack Congestive heart failure Father Congestive heart failure Social History household members: none Tobacco & Substance Use Smoking Status: Never smoker alcohol intake: current Assessment & Plan Assessment and plan (1) Pressure ulcer of right buttock, stage 3: Status: Acute Plan The ulcer is small and does not appear to be infected. Recommend dressing changes with Allevyn, Roho cushion and frequent turning for pressure offloading, protein supplementation, follow up at wound center after discharge. Time Spent With Patient Time with patient: 30 to 49 minutes with 50% spent counseling/coordinating care
[2023-10-14] MEDS: ACETAMINOPHEN 325 MG TABLET 650 MG PO (16:23)
[2023-10-14] MEDS: cefTRIAXone 1,000 MG in SODIUM CHLORIDE 0.9% 100 ML 200 MG IV (16:26)
[2023-10-14] MEDS: ATORVASTATIN 20 MG TABLET 80 MG PO (19:43)
[2023-10-15] VITALS: BP 170/69; PULSE 71; RESP 20; TEMP 36.4; O2SAT 97
[2023-10-15 03:45] VITALS: BP 176/63; PULSE 69; RESP 17; TEMP 36.6; O2SAT 97
[2023-10-15 05:31] LABS: BUN Creatinine Ratio 25.5 (6-22); Blood Urea Nitrogen 12 mg/dL (7-17); Carbon Dioxide 24 mmol/L (22-32); Chloride 101 mmol/L (98-107); Estimated Glomerular Filt Rate > 60 mL/min (>60); Glucose 152 mg/dL (80-110); HEMOLYSIS < 15 (0-50); Potassium 3.7 mmol/L (3.4-5.1); Sodium 132 mmol/L (137-145)
[2023-10-15 05:32] LABS: Add Manual Diff / Slide Review NO; Basophils Absolute Auto 0 /uL (0-100); Basophils Percent Auto 0.2 % (0-2); Eosinophils Absolute Auto 100 /uL (0-450); Eosinophils Percent Auto 1.5 % (2-4); Hemoglobin 14.2 g/dL (12.0-16.0); Lymphocytes Absolute Auto 400 /uL (1100-4500); Lymphocytes Percent Auto 12.2 % (25-40); Mean Corpuscular HGB Conc 34.6 % (30-36); Mean Corpuscular Hemoglobin 32.4 PG (26-34); Mean Corpuscular Volume 93.7 fL (80-100); Monocytes Absolute Auto 200 /uL (0-900); Monocytes Percent Auto 6.6 % (3-14); Neutrophils Absolute Auto 2900 /uL (1500-7000); Neutrophils Percent Auto 79.5 % (50-75); Platelet Count 151 X10^3/uL (150-400); Red Blood Cell Count 4.38 X10^6/uL (4.0-5.2); Red Cell Distribution Width 12.7 % (11.6-14.8); White Blood Cell Count 3.6 X10^3/uL (4.5-11.0)
--- NOTE | 2023-10-15 07:30 | PM.PN.1 ---
Subjective Subjective Interval history: She remains comfortable. No new complaints. Exam Vital Signs (past 8 hours): Oxygen Delivery Method Room Air Oxygen Flow Rate 0 Narrative Exam Narrative: NAD Lungs clear Heart regular Abdomen soft No leg edema Objective Labs 10/15/23 04:35 10/15/23 04:35 [facility] Medical History Peripheral neuropathy Type 2 diabetes mellitus Hypertension Surgical History History of hysterectomy Family History Mother Heart attack Congestive heart failure Father Congestive heart failure Social History household members: none Smoking Status: Never smoker alcohol intake: current Assessment & Plan Assessment & Plan narrative: 1. Acute ischemic stroke, present on admission and active. 2. History of 3 falls over 2 days secondary to stroke and right hemiparesis, present on admission and active. 3. DM 2, diet-controlled. Present on admission and stable. 4. Hypertension, present on admission and stable. 5. Mild hyponatremia, present on admission and active. 6. Acute encephalopathy likely secondary to stroke, present on admission and active. 7. Sacral ulcer, Stage 3. Present on admission and active. Plan: -continue aspirin, Plavix for 21 days (DAPT). Then monotherapy. -continue high dose atorvastatin. -permissive hypertension for 24-48 hours. -Wound care. -Needs SNF for discharge. She is full resuscitation, confirmed time of admission. Proxy decision making is her cousin, Charlie. Quality VTE Deep Vein Thrombosis/Pulmonary Embolism Present on Admission: No
[2023-10-15 08:00] VITALS: BP 167/70; PULSE 70; RESP 16; TEMP 36.1; O2SAT 99
[2023-10-15] MEDS: DEXTROSE 5%-0.45% NS 1,000 ML 100 ML IV (08:44)
[2023-10-15] MEDS: CLOPIDOGREL 75 MG TABLET PO (08:47)
[2023-10-15] MEDS: ASPIRIN EC 81 MG TABLET PO (08:47)
[2023-10-15] MEDS: HEPARIN 5,000 UNIT/ML VIAL 5000 UNIT SUBCUT ×2 (08:48→21:31)
--- NOTE | 2023-10-15 09:18 | CM.DPNOTE ---
Addendum entered by KARISHMA Chase 10/15/23 10:53: ADD; Faxed updated therapy notes from today to [facility]hab and left msg to update and confirm they received referral. BF Original Note: Faxed referral to [facility] Acute Rehab per [facility] Lina's request to review for Acute In Rehab via Right Fax with confirmation received. KARISHMA Chase
--- NOTE | 2023-10-15 09:33 | OT.IP.TRT ---
Current Diagnoses Pressure ulcer of right buttock, stage 3 (10/13/23) cerebral infarction, unspecified side (10/13/23) Occupational Therapy Treatment Note M2 OT-IP Current Condition Start: 10/14/23 11:43 Freq: Status: Active Protocol: Document 10/14/23 11:43 CCC (Rec: 10/14/23 12:07 CCC [id number]) Occupational Therapy Current Condition Current Condition Evaluation Date 10/14/23 Treatment Diagnosis S/P Acute ischemic CVA Diagnosis Onset Date 10/13/23 M3 OT- IP Subjective and Pain Start: 10/14/23 11:43 Freq: Status: Active Protocol: Document 10/15/23 09:37 CGR (Rec: 10/15/23 09:44 CGR [id number]) OT- Subjective Occupational Therapy Visit Type Type Treatment Note Visit Start Time 09:09 Visit Stop Time 09:33 Notes Pt requesting to shower OT Pain Assessment Pain When Pain Assessed At Rest Pain Present Pain Present Denied Pain M4 OT- IP ADL's Start: 10/14/23 11:43 Freq: Status: Active Protocol: Document 10/15/23 09:37 CGR (Rec: 10/15/23 09:44 CGR [id number]) OT [id number] Comments OT Self-Feeding Comments not meal time OT ADL-Grooming General Evaluation Grooming Ability Contact Guard Assistance Areas Needing Assistance Combing/Brushing Hair Comments OT Grooming Comments pt was able to use her R hand to brush hair but then dropped the brush when attempting to put it back on the table. Pt states that her right hand is still clumsy OT ADL-Oral Care Comments Oral Care Comments Not performed OT ADL-Dressing General Eval Upper Body Dressing Ability Standby Assistance Lower Body Dressing Ability Standby Assistance,Minimal Assistance,Moderate Assistance Areas Needing Assistance Underpants/Brief,Socks Comments OT Dressing Comments Pt donned hospital gown with SBA Socks seated in chair with SBA Pull on breif seated on toilet with min to mod a. Pt instructed to don to the RLE first but donned to her LLE first. OT ADL-Toileting General Evaluation Toileting Ability Standby Assistance Comments OT Toileting Comments Pt urinated and had BM seated on toilet OT ADL-Bathing Bathing Type Bathing Type Shower General Evaluation Bathing Ability Standby Assistance Areas Needing Assistance Retrieving/Setting Up Items Comments OT Bathing Comments Pt was able to clean all parts of her body without assist. M5 OT- IP IADL's Start: 10/14/23 11:43 Freq: Status: Active Protocol: Document 10/14/23 11:43 [facility] (Rec: 10/14/23 12:07 [facility] [id number]) OT-Instrumental Activities of Daily Living Deficits IADL Deficits Identified Deficits Home Safety Awareness Awareness of Need for Assistance at Home Decreased Awareness Home Safety Comments Pt is insistent that she is fine at this time and mainly just worrid about getting hoem to be with her pets. Medication Management Medication Management Comments Pt would benefit from assist. Money Management Money Management Comments Pt would benefit from assist. Meal Preparation Meal Preparation Comments Pt would benefit from assist. Orthopedic Dentist Orthopedic Dentist Comments Pt will benefit from assist. Driving Driving Concerns Identified Regarding Safety M6 OT- IP Functional Cognition Start: 10/14/23 11:43 Freq: Status: Active Protocol: Document 10/15/23 09:37 CGR (Rec: 10/15/23 09:44 CGR [id number]) Cognitive Factors Limiting Selfcare Function Cognitive Ability Level of Alertness Alert Cognitive Comments Cognitive Assessment Comments Of note, pt was watching [employer], a [employer] program when OT entered. Pt appeared to be engaged in the show at least minimally. M7 OT- IP Mobility and Balance Start: 10/14/23 11:43 Freq: Status: Active Protocol: Document 10/15/23 09:37 CGR (Rec: 10/15/23 09:44 CGR [id number]) OT- Bed Mobility Assessment Supine to Sit Supine to Sit Assist Minimal Assistance OT-Transfer Assessment Sit to and From Stand Sit to and from Stand Contact Guard Assistance Transfers Transfer Ability Contact Guard Assistance Technique Transfer Destination Bed,Chair,Shower Stall,Toilet Transfer Technique Stand Step Pivot Devices Transfer Assistive Devices Gait Belt,Front Wheeled Walker Comments Mobility Comments Pt needed extra time for getting out of flat bed and struggled. OT- Gait Assessment Gait Gait Assistance Required: Contact Guard Assist Assistive Devices Assistive Device Gait Belt,Front Wheeled Walker Comments Gait Ability Comments mobility around the room OT- Balance Assessment Sitting Balance and Reactions Static Sitting Balance Ability Normal Dynamic Sitting Balance Ability Good M8 OT- IP Objective Assessments Start: 10/14/23 11:43 Freq: Status: Active Protocol: Document 10/14/23 11:43 CCC (Rec: 10/14/23 12:07 CCC [id number]) OT Strength Upper Extremity Strength Assessment Right Impaired Shoulder 4- Elbow 4- Forearm 3+ Wrist 3+ Hand 3+ OT- Coordination Assessment Upper Extremity Finger to Nose Test Right UE Impaired Finger Tapping Test Right UE Impaired Comments Coordination Comments Mildly increased time with right hand. Right hand 84 second which is well below her left hand of 27 seconds. Pt having difficulty with finger to thumb, and thumb to finger, in hand manipulation movements. OT Sensation Assessment Comments Summary Comments Intact for light touch. Decreased for right hand for proprioception and kinesthesia and neglecting use of her right hand while wendy/doffing her socks. Edema Edema Comments Right hand noted slightly more swollen then her left hand. M9 OT- IP Assessment and Plan Start: 10/14/23 11:43 Freq: Status: Active Protocol: Document 10/15/23 09:37 CGR (Rec: 10/15/23 09:44 CGR [id number]) OT Summary Assessment and Plan Potential Rehabilitation Potential Good Analytic Complexity at Evaluation Moderate Summary OT Impairments Range of Motion,Strength, Balance,Coordination, Functional Cognition, Functional Mobility,Self- Feeding,Grooming,Dressing, Toileting,Bathing,Toilet Transfers,Shower Transfers, Activity Tolerance Progress Towards Goals Slow Progress due to Medical Issues,Slow Progress due to Activity Tolerance,Slow Progress due to Cognition Assessment Summary Pt MOD complexity and main barrier are decreased coordination, strength, and smooth efficient movement for RUE, decreased balance, right neglect and difficulties with STm and problem solving due to recent CVA. Prior pt was completely independent and taking care of her pets at home. Pt will greatly benefit from acute rehab at this time . Pt participated in shower on this date per her request. Goals Self-Feeding Goal Independent Grooming Goal Independent Dressing Goal Independent Toileting Goal Independent Bathing Goal Independent Toilet Transfer Goal Independent Shower Transfer Goal Independent Days to Meet Goals 20 Frequency of Treatment Frequency Of Treatment Once a Day Treatment Plan OT Treatment Plan ADL Training,Functional Cognition Training,Functional Mobility,Neuromuscular Re- education,Patient/Family Education,Discharge Planning Other Treatment Recommendations and Next standing ADL's, FMS Treatment Focus Discharge Recommendations OT Discharge Recommendations Acute Rehab Home Equipment Needs defer to acute rehab Transportation Needs at Discharge Private Vehicle
--- NOTE | 2023-10-15 09:55 | PT.IPTN ---
Current Diagnoses Pressure ulcer of right buttock, stage 3 (10/13/23) cerebral infarction, unspecified side (10/13/23) Physical Therapy Treatment Note M2 PT-IP Current Condition Start: 10/14/23 08:20 Freq: NEEDED Status: Active Protocol: Document 10/14/23 10:13 MB (Rec: 10/14/23 10:56 MB [id number]) Physical Therapy Current Condition Current Condition Evaluation Date 10/14/23 Treatment Diagnosis Left basal ganglia infarct M3 PT-IP Subjective Start: 10/14/23 08:20 Freq: NEEDED Status: Active Protocol: Document 10/15/23 10:20 TS (Rec: 10/15/23 10:31 TS [id number]) Subjective Physical Therapy Visit Type Type Treatment Note Visit Start Time 09:55 Visit Stop Time 10:19 Number of BEEF GRINDER Visits 1 Physical Therapy Visit Comments Patient Comments Pt found resting in chair, reports having word finding difficulties and R sided weakness. Pt is agreeable to PT. M4 PT-IP Mobility and Gait Start: 10/14/23 08:20 Freq: NEEDED Status: Active Protocol: Document 10/15/23 10:20 TS (Rec: 10/15/23 10:31 TS [id number]) PT-Transfer Assessment Sit to and From Stand Sit to and from Stand Contact Guard Assistance Equipment Transfer Assistive Device Gait Belt,Front Wheeled Walker Orthotic/Prosthetic Devices or Brace: No Comments Mobility Comments Pt is impulsive to stand before therapist is ready. STS from chair with FWW CGA, pt has some posterior leaning and braces back of [employer] [facility] chair for balance. She ambulated ~225'SBA with FWW, pt required William for balance due to running into obstacle in hallway. She performed steps x6 CGA with B handrails, is quick to do stairs and demonstrates poor safety awareness. She has difficulty following cues for stair sequencing of ascending with strong side. Pt ambulated back to room, was left in chair, all needs met. Gait Assessment Gait Gait Assistance Required: Standby Assistance Distance (Feet) 225 Able to Maintain Weight Bearing Status Yes During Gait Assistive Devices Assistive Device Gait Belt,Front Wheeled Walker Orthotic/Prosthetic Devices or Brace: No Gait Deviations General Gait Pattern Ataxic Factors Limiting Gait Function Factors Limiting Gait Function Difficulty Following Directions,Incoordination,Poor Balance,Poor Safety Awareness Comments Gait Comments See mobility comments Stair Climbing Assessment Evaluation Level of Assist On Stairs Contact Guard Assistance Devices Stair Climbing Assistive Devices Left Railing,Right Railing Technique/Endurance Stair Climbing Direction Ascend and Descend Stair Climbing Technique Step Over Step Number of Steps Climbed 6 Comments Stair Climbing Comments See mobility comments PT-Balance Assessment Sitting Balance and Reactions Static Sitting Balance Ability Normal Dynamic Sitting Balance Ability Good Standing Balance and Reactions Static Standing Balance Ability Good Dynamic Standing Balance Ability Fair Device Used RW M5 PT-IP Objective Assessments Start: 10/14/23 08:20 Freq: NEEDED Status: Active Protocol: Document 10/14/23 10:13 MB (Rec: 10/14/23 10:56 MB [id number]) Orientation Orientation/Cognition Level of Alertness Confusional State Orientation Name,Birthday Language Function Ability Expressive Aphasia,Word Finding Difficulties Safety Awareness Decreased Safety Awareness Comments Pt has trouble answering all questions including history and 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 Eye tracking is normal with PT Gross Range of Motion Upper Extremity ROM Impairments Defer to OT Lower Extremity ROM Assessment Within Functional Limits Strength Upper Extremity Strength Assessment Right Impaired Shoulder 4- Lower Extremity Strength Assessment Right Impaired Hip 3 Knee 3+ Ankle 4+ Comments Strength Comments PT only checks right shoulder flexion and abduction and right is much weaker than left . Pt states that she is right hand dominant Coordination Assessment Assessment Finger to Nose Test Minimal Impairment Pronation/Supination Test Minimal Impairment Foot Tapping Test Moderate Impairment Heel on Lopes Test Minimal Impairment Muscle Tone Muscle Tone WNL Yes M6 PT-IP Treatment Start: 10/14/23 08:20 Freq: NEEDED Status: Active Protocol: Document 10/15/23 10:20 TS (Rec: 10/15/23 10:31 [id number]) Physical Therapy Treatment Education Education Provided Safety M7 PT-IP Assessment and Plan Start: 10/14/23 08:20 Freq: NEEDED Status: Active Protocol: Document 10/15/23 10:20 TS (Rec: 10/15/23 10:31 [id number]) PT Summary Assessment and Plan Potential Rehabilitation Potential Good Summary Impairments Strength,Balance,Coordination, Cognition,Bed Mobility, Transfers,Gait,Activity Tolerance Progress Towards Goals Progressing Toward Goals Assessment Summary Evelyn is making some progress with her mobility. She progressed her gait to ~225' with use of FWW. She requried William for balance from running into obstacle in hallway. She performed stairs x6 CGA with B handrails with poor safety awareness and difficulty following direction from therapist. She remains impulsive to move before therapist is ready. PT continues to recommend Acute rehab at this time. Goals Bed Mobility Goal Independent Transfer Goal Independent,Cane,Front Wheeled Walker Gait Goal Independent,Cane,Front Wheel Walker Gait Distance 100 Other Goals Pt will ascend and descend 3 steps with right rail to allow safe home entry. Advance gait and balance with or without LRAD Days to Meet Goals 5 Frequency of Treatment Frequency Of Treatment Once a Day Treatment Plan Physical Therapy Treatment Plan Bed Mobility Training,Transfer Training,Gait Training, Therapeutic Exercise,Balance Retraining,Discharge Planning, Neuromuscular Re-ed, Coordination Retraining Other Recommendations and Next Treatment ambulation, stairs Focus Weight Bearing Status Weight Bearing Status Weight Bear as Tolerated Recommendations To Nursing Amount of Assist Needed 1 Person Assist Discharge Recommendations PT Discharge Recommendations Acute Rehab Transportation Needs at Discharge Private Vehicle
--- NOTE | 2023-10-15 10:09 | DIET.CONS ---
Dietary Consultation Note Admission Date: 10/13/2023 18:12 Assessment: 72 y F admitted with acute ischemic stroke. Nutrition consulted for sacral ulcer. PMH of diet controlled type 2 diabetes. A1c 6% on 08/26/23. Per chart review, ulcer is stage 3, small and does not appear to be infected. Met with pt at bedside who reports normal appetite with 3 meals per day or two meals per day with snack of fruit (per diet recall, meals contain protein source). No report from pt of weight loss. No recent wt hx in chart. She is open to trying Rikki BID for wound healing. Ht: 160.02 cm Wt: 65.771 kg BMI: 25.7 UBW: 65.9-66.4 kg per pt within last 6 months Last BM: 10/15/23 (10/15/23 03:45) MNA: 14 Gonsalo Score: 22 Diet: 10/14/23 Breakfast Heart Healthy Diet Diet Modifications: Labs: RBC 4.38 X10^6/uL (4.0-5.2) 10/15/23 04:35 Hgb 14.2 g/dL (12.0-16.0) 10/15/23 04:35 Hct 41.0 % (36-46) 10/15/23 04:35 Creatinine 0.47 mg/dL (0.52-1.04) L 10/15/23 04:35 Nutrition Diagnosis: Increased protein needs r/t to wound healing as evidenced by stage 3 ulcer Interventions: 1. Ordered Rikki BID EER: [id number] kcals/day (25 kcals/kg per BMI) 70-80 g protein/day (1.2 g/kg per stage 3 ulcer) Monitoring/Evaluations: rikki tolerance, BG for optimal healing Electronically Signed by: Daxa Petty 10/15/23 10:09 Clinical Dietitian [address] [address]
[2023-10-15 12:00] VITALS: BP 167/83; PULSE 74; RESP 16; TEMP 36.3; O2SAT 99
--- NOTE | 2023-10-15 12:58 | CM.DANOTE ---
Initial DCP Assessment Visit Note Reviewed EMR and team rounds for pt's status updates. Met with pt at bedside and introduced self and role, pt found to be resting in the recliner, able to discuss her preferences for d/c and concerns that she has re: her elderly dog and plan for his care while she is in the hospital. Pt resides independently in her own home, is . She has a cousin, Yoan, a neighbor, Laurent, and another neighbor/friend down the street who all assist her with care/watching her dog/helping with errands as she needs them. Payor: Medicare PCP: Dr. Mei Pt is a 72 year-old F who presented to the ED via her friend's vehicle after she became very concerned about having fallen several times over the last 24-hours, and has altered mental status/decreased mobility. ED CT imaging confirmed subacute stroke, and a incidental pressure sore on R-buttock she incurred from the fall. She has worked with PT/OT who are recommending acute rehab for stroke recovery. Pt is open to going to acute rehab, her cousin is coordinating with her neighbor, Laurent, re: care of the dog while she is there, she's hopeful to be there only a week. Faxed referral and clinicals to [facility]. Received return call that they are reviewing and that she looks good for admission on Wednesday, pending speaking with her cousin, Yoan, to confirm a safe discharge plan with help at home once she exites acute rehab care. CONTRACT FORESTER called Yoan and updated him on this plan. CONTRACT FORESTER will continue to follow and assist with rehab placement and any further evolving needs during this inpt admission. Discharge Planning/Care Management CM Discharge Assessment Start: 10/15/23 12:56 Freq: Status: Active Protocol: Document 10/15/23 12:56 DPL (Rec: 10/15/23 12:58 DPL [id number]) Discharge Planning Assessment Assigned Administrative Specialist KARISHMA Mills Advance Directives? No Advance Directives on File No History Provided By Patient,Medical Record Has Patient been admitted in last 30 No days? Prior Living Arrangements House Household Members none Type of transporation used prior to Drives own vehicle admit Independent with ADL's Yes Is patient alert and oriented? Yes Caregiver for Another No Comment Acute Rehab Discharge Plan Inpatient Rehab Unit Transportation Arrangement Pt states her cousin or brother can provide transport at d/c Referrals Initiated Other Additional Comment [facility] Whiteboard Updated in Patient Room with Yes name and ext. # of Administrative Specialist Review Status In Process Please Provide Date Initial DC 10/15/23 Assessment Was Performed
[2023-10-15 16:00] VITALS: BP 182/79; PULSE 78; RESP 16; TEMP 36.6; O2SAT 99
[2023-10-15] MEDS: cefTRIAXone 1,000 MG in SODIUM CHLORIDE 0.9% 100 ML 200 MG IV (16:04)
[2023-10-15 20:00] VITALS: BP 152/72; PULSE 74; RESP 16; TEMP 36.6; O2SAT 98
[2023-10-15] MEDS: ATORVASTATIN 20 MG TABLET 80 MG PO (21:31)
[2023-10-16] VITALS: BP 156/57; PULSE 68; RESP 20; TEMP 36.7; O2SAT 98
[2023-10-16 05:48] VITALS: BP 153/63; PULSE 69; RESP 20; TEMP 35.9; O2SAT 95
--- NOTE | 2023-10-16 06:37 | PC.NURSE ---
Patient resting in bed most of the shift. Up to the bathroom w/sba. Patient has been A&O, calm and cooperative.
[2023-10-16] MEDS: ACETAMINOPHEN 325 MG TABLET 650 MG PO (08:01)
[2023-10-16] MEDS: CLOPIDOGREL 75 MG TABLET PO (08:01)
[2023-10-16] MEDS: ASPIRIN EC 81 MG TABLET PO (08:01)
[2023-10-16] MEDS: HEPARIN 5,000 UNIT/ML VIAL 5000 UNIT SUBCUT ×2 (08:01→21:28)
--- NOTE | 2023-10-16 08:31 | CM.DPC ---
DCP Cont. Reviewed EMR and team rounds for status updates. Received a call from [facility], pt has been accepted and can arrive anytime tomorrow am. Will update the RN. Updated pt/and her cousin, Yoan, who will transport her. RN Report# [phone]
--- NOTE | 2023-10-16 08:45 | PT.IPTN ---
Current Diagnoses Pressure ulcer of right buttock, stage 3 (10/13/23) cerebral infarction, unspecified side (10/13/23) Physical Therapy Treatment Note M2 PT-IP Current Condition Start: 10/14/23 08:20 Freq: NEEDED Status: Active Protocol: Document 10/14/23 10:13 MB (Rec: 10/14/23 10:56 MB [id number]) Physical Therapy Current Condition Current Condition Evaluation Date 10/14/23 Treatment Diagnosis Left basal ganglia infarct M3 PT-IP Subjective Start: 10/14/23 08:20 Freq: NEEDED Status: Active Protocol: Document 10/16/23 10:16 TS (Rec: 10/16/23 10:25 TS [id number]) Subjective Physical Therapy Visit Type Type Treatment Note Visit Start Time 08:45 Visit Stop Time 09:08 Number of HEADING SAW OPERATOR Visits 2 Physical Therapy Visit Comments Patient Comments Pt found resting in bed, continues to have word finding difficulties and some slurred speech. Pt is agreeable to PT. M4 PT-IP Mobility and Gait Start: 10/14/23 08:20 Freq: NEEDED Status: Active Protocol: Document 10/16/23 10:16 TS (Rec: 10/16/23 10:25 TS [id number]) PT-Bed Mobility Assessment Supine to Sit Supine to Sit Standby Assistance Scooting Scooting to Edge of Bed Standby Assistance PT-Transfer Assessment Sit to and From Stand Sit to and from Stand Contact Guard Assistance Comments Mobility Comments Supine to sit HOB elevated SBA , she demonstrates R sided weakness and requires cues for RUE act. STS from bed CGA with use of FWW. She ambulated ~250'SBA with FWW, required cues for avoiding obstacle on R side in hallway. She performed steps x6 step over step with some unsteadiness. Pt ambulated back to room, was left in chair, nrusing notified. Gait Assessment Gait Gait Assistance Required: Standby Assistance Distance (Feet) 250 Able to Maintain Weight Bearing Status Yes During Gait Assistive Devices Assistive Device Gait Belt,Front Wheeled Walker Orthotic/Prosthetic Devices or Brace: No Gait Deviations General Gait Pattern Ataxic Factors Limiting Gait Function Factors Limiting Gait Function Difficulty Following Directions,Incoordination,Poor Balance,Poor Safety Awareness Comments Gait Comments See mobility comments Stair Climbing Assessment Evaluation Level of Assist On Stairs Standby Assistance Devices Stair Climbing Assistive Devices Left Railing,Right Railing Technique/Endurance Stair Climbing Direction Ascend and Descend Stair Climbing Technique Step Over Step Number of Steps Climbed 6 Comments Stair Climbing Comments See mobility comments PT-Balance Assessment Sitting Balance and Reactions Static Sitting Balance Ability Normal Dynamic Sitting Balance Ability Good Standing Balance and Reactions Static Standing Balance Ability Good Dynamic Standing Balance Ability Fair Device Used RW M5 PT-IP Objective Assessments Start: 10/14/23 08:20 Freq: NEEDED Status: Active Protocol: Document 10/14/23 10:13 MB (Rec: 10/14/23 10:56 MB [id number]) Orientation Orientation/Cognition Level of Alertness Confusional State Orientation Name,Birthday Language Function Ability Expressive Aphasia,Word Finding Difficulties Safety Awareness Decreased Safety Awareness Comments Pt has trouble answering all questions including history and 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 Eye tracking is normal with PT Gross Range of Motion Upper Extremity ROM Impairments Defer to OT Lower Extremity ROM Assessment Within Functional Limits Strength Upper Extremity Strength Assessment Right Impaired Shoulder 4- Lower Extremity Strength Assessment Right Impaired Hip 3 Knee 3+ Ankle 4+ Comments Strength Comments PT only checks right shoulder flexion and abduction and right is much weaker than left . Pt states that she is right hand dominant Coordination Assessment Assessment Finger to Nose Test Minimal Impairment Pronation/Supination Test Minimal Impairment Foot Tapping Test Moderate Impairment Heel on Lopes Test Minimal Impairment Muscle Tone Muscle Tone WNL Yes M6 PT-IP Treatment Start: 10/14/23 08:20 Freq: NEEDED Status: Active Protocol: Document 10/16/23 10:16 TS (Rec: 10/16/23 10:25 [id number]) Physical Therapy Treatment Education Education Provided Safety M7 PT-IP Assessment and Plan Start: 10/14/23 08:20 Freq: NEEDED Status: Active Protocol: Document 10/16/23 10:16 TS (Rec: 10/16/23 10:25 TS [id number]) PT Summary Assessment and Plan Potential Rehabilitation Potential Good Summary Impairments Strength,Balance,Coordination, Cognition,Bed Mobility, Transfers,Gait,Activity Tolerance Progress Towards Goals Progressing Toward Goals Assessment Summary Evelyn continues to make some progress with her mobility. She is SBA for bed mobility and she requires cues for RUE act due to R sided neglect. She ambulated ~250'SBA with FWW SBA, does require some cueing to avoid obstacles in hallway. She continues to have word finding difficulties and some slurred speech. PT continues to recommend acute rehab. Goals Bed Mobility Goal Independent Transfer Goal Independent,Cane,Front Wheeled Walker Gait Goal Independent,Cane,Front Wheel Walker Gait Distance 100 Other Goals Pt will ascend and descend 3 steps with right rail to allow safe home entry. Advance gait and balance with or without LRAD Days to Meet Goals 5 Frequency of Treatment Frequency Of Treatment Once a Day Treatment Plan Physical Therapy Treatment Plan Bed Mobility Training,Transfer Training,Gait Training, Therapeutic Exercise,Balance Retraining,Discharge Planning, Neuromuscular Re-ed, Coordination Retraining Other Recommendations and Next Treatment ambulation, stairs Focus Weight Bearing Status Weight Bearing Status Weight Bear as Tolerated Recommendations To Nursing Amount of Assist Needed 1 Person Assist Discharge Recommendations PT Discharge Recommendations Acute Rehab Transportation Needs at Discharge Private Vehicle
[2023-10-16 09:00] VITALS: BP 148/71; PULSE 68; RESP 14; TEMP 37.7; O2SAT 97
--- NOTE | 2023-10-16 10:38 | PM.PN.1 ---
Subjective Subjective Interval history: She is doing well, no new issues overnight. Her cognition feels about the same, not better or worse. Her strength in arms and legs is improving. She was accepted at [facility] rehab on October 16. Exam Vital Signs (past 8 hours): - 10/16/23 05:48 Temperature 96.6 F L Pulse Rate 69 Respiratory Rate 20 Blood Pressure 153/63 H Pulse Oximetry 95 Oxygen Flow Rate 0 Oxygen Delivery Method Room Air Oxygen Flow Rate 0 Narrative Exam Narrative: NAD, alert and oriented. Fluent speech. Lungs are clear, normal rate and effort. Heart is regular, no murmur gallop or rub. Abdomen is soft, non distended. Extremities are free of edema. Slow to answer questions, flat affect. Otherwise she has no distress. Objective Labs 10/15/23 04:35 10/15/23 04:35 [facility] Medical History Peripheral neuropathy Type 2 diabetes mellitus Hypertension Surgical History History of hysterectomy Family History Mother Heart attack Congestive heart failure Father Congestive heart failure Social History household members: none Smoking Status: Never smoker alcohol intake: current Assessment & Plan Assessment & Plan narrative: 1. Acute ischemic stroke, present on admission and active. 2. History of 3 falls over 2 days secondary to stroke and right hemiparesis, present on admission and active. 3. DM 2, diet-controlled. Present on admission and stable. 4. Hypertension, present on admission and stable. 5. Mild hyponatremia, present on admission and active. 6. Acute encephalopathy likely secondary to stroke, present on admission and active. 7. Sacral ulcer, stage 3. Present on admission and active. Wound Care evaluated and is following. Plan: -MRI and carotid duplex ultrasound completes and reveal BG CVA and non-critical carotid disease. -continue aspirin, Plavix for 21 days (DAPT). Then monotherapy. -continue high dose atorvastatin. -she was accepted at [facility] rehab on October 16. She is full resuscitation, confirmed time of admission. Quality VTE Deep Vein Thrombosis/Pulmonary Embolism Present on Admission: No
[2023-10-16 13:00] VITALS: BP 147/78; PULSE 65; RESP 16; TEMP 37.3; O2SAT 96
[2023-10-16 17:00] VITALS: BP 112/68; PULSE 78; RESP 19; O2SAT 96
[2023-10-16 20:00] VITALS: BP 147/60; PULSE 72; RESP 16; TEMP 36.3; O2SAT 98
[2023-10-16] MEDS: ATORVASTATIN 20 MG TABLET 80 MG PO (21:29)
[2023-10-16] MEDS: cephALEXin 250 MG CAPSULE 500 MG PO (21:31)
[2023-10-17 00:38] VITALS: BP 150/66; PULSE 74; RESP 17; TEMP 36.1; O2SAT 100
[2023-10-17 05:44] VITALS: BP 146/59; PULSE 71; RESP 14; TEMP 36.4; O2SAT 98
--- NOTE | 2023-10-17 08:47 | P.DS_ITS ---
History of Present Illness History of Present Illness Chief complaint: has fallen 3x, speech delay Narrative: The patient is a 72-year-old female who lives alone. She is history of diet- controlled diabetes 2, hypertension, and peripheral neuropathy. She lives in [place] independently. She has fallen 3 times in the last 2 days. She called her friend because of difficulty getting back up. She is noted weakness in her right arm and leg for the last 2 days as well. Her friend found her to also be somewhat mentally confused and brought her to the emergency department. There she had a fairly normal exam in the [facility] but CT did reveal a basal ganglia infarct. She denies any chest pain, dyspnea, nausea, vomiting or diarrhea. She has no history of stroke. She does not smoke. She details a history of a vertebral cancer which was treated in the past with radiation therapy. Discharge Providers Provider Date of admission: 10/13/23 18:12 Discharge Date: 10/17/23 Primary care physician: Traci Mei RN Consults: 10/13/23 18:28 Consult to Physical Therapy Evaluate & Treat Comment: Physician Instructions: Evaluate and Treat 10/13/23 18:29 Consult to Discharge Planning Routine Comment: Consult to Occupational Therapy Evaluate & Treat Comment: Physician Instructions: Evaluate and treat Consult to Speech Therapy Evaluate & Treat Comment: Physician Instructions: Evaluate and treat 10/14/23 13:44 Consult to Wound Care Routine Comment: Consulting Provider: [facility] 10/14/23 13:45 Consult to Dietitian, Adult Routine Comment: Reason For Exam: sacral ulcer Discharge provider: Olvin Garcia MD Summary Hospital Course Discharge Diagnosis: 1. Acute ischemic stroke, present on admission and active. 2. History of 3 falls over 2 days secondary to stroke and right hemiparesis, present on admission and active. 3. DM 2, diet-controlled. Present on admission and stable. 4. Hypertension, present on admission and stable. 5. Mild hyponatremia, present on admission and active. 6. Acute encephalopathy likely secondary to stroke, present on admission and active. 7. Sacral ulcer, stage 3. Present on admission and active. Wound Care evaluated and is following. 8. Uncomplicated Klebsiella UTI, present on admission and improving. Hospital Course: The patient was admitted for weakness and mental status changes. Initial imaging indicated a basal ganglion infarct on CT and an unremarkable CTA. The stroke is confirmed with MRI. The patient did have a significant metabolic encephalopathy related to her stroke. Ultimately she had weakness and discoordination but these were improving with our therapies here. She was also discovered to have a stage III sacral ulcer and wound care did consult and wound care was provided. She does have a history of diabetes and hypertension as well. The patient did have 3 falls preceding her admission due to right-sided weakness. She was accepted for inpatient rehabilitation and is stable for discharge to [facility] rehab on October 16. General recommendations for dual antiplatelet therapy for 21 days followed by vital therapy as well as high dose statin. Was diagnosed with a Klebsiella UTI and received ceftriaxone for 2 days and we will be on cephalexin for several more days. Status at Discharge Cognitive/behavioral status at discharge: oriented Functional status at discharge: uses cane/walker Overall status at discharge: patient is progressing back to baseline Time Spent with Patient Time spent: Greater than 30 minutes Exam Vital Signs (past 8 hours): - 10/17/23 05:44 Temperature 97.6 F Pulse Rate 71 Respiratory Rate 14 Blood Pressure 146/59 H Pulse Oximetry 98 Oxygen Flow Rate 0 Oxygen Delivery Method Room Air Oxygen Flow Rate 0 Narrative Exam Narrative: NAD, alert and oriented. Fluent speech. Lungs are clear, normal rate and effort. Heart is regular, no murmur gallop or rub. Abdomen is soft, non distended. Extremities are free of edema. Objective ECG Impression: NSR Imaging Multiple studies:: Radiologist's impression: CT scan - head: Radiologist's impression: No significant intracranial arterial abnormality is seen. Focal narrowings can be seen involving the origins of the internal carotid arteries, with 70-80% narrowing on the right and 40% narrowing on the left. Low density within the left basal ganglia and the left centrum semiovale. Subacute infarct is suspected. Additional findings: At least moderate cervical spine of degenerative change Any quantitative measurements of stenosis were performed using NASCET criteria. Chest x-ray: Radiologist's impression: IMPRESSION: No acute pulmonary process. MRI - head: Radiologist's impression: Moderate size diffusion restriction in the left basal ganglia, internal capsule, and coronal radiata corresponding to CT hypoattenuation, representing early subacute Infarct Mastoid effusions. Carotid US: Radiologist's impression: Brachial blood pressure: 167 mm Hg. Common carotid artery peak systolic velocity: 106 cm/sec. Internal carotid artery peak systolic velocity: 119 cm/sec. Internal carotid artery end diastolic velocity: 32 cm/sec. External carotid artery peak systolic velocity: 60 cm/sec. ICA/CCA peak systolic ratio: 2 . Sargent scale imaging description: Focus of eccentric plaque at the origin of the internal carotid artery and scattered mild atherosclerotic plaque. Percent internal carotid artery stenosis: Less than 50 percent stenosis . Vertebral artery: Flow direction is antegrade. Left side: Brachial blood pressure: 173 mm Hg. Common carotid artery peak systolic velocity: 108 cm/sec. Internal carotid artery peak systolic velocity: 81 cm/sec. Internal carotid artery end diastolic velocity: 21 cm/sec. External carotid artery peak systolic velocity: 67 cm/sec. ICA/CCA peak systolic ratio: 1.3 . Sargent scale imaging description: Mild atherosclerotic plaque Percent internal carotid artery stenosis: Less than 50 percent stenosis . Vertebral artery: Flow direction is antegrade. IMPRESSION: 1. Right internal carotid artery demonstrates less than 50 percent stenosis and is approaching the 50-69 percent criteria with a peak systolic velocity of 119 cm/S. 2. Left internal carotid artery demonstrates less than 50 percent stenosis. 3. Brachial pressures are 167-173 mmHg. Patient reports no history of hypertension. Recommend further workup. Labs 10/15/23 04:35 10/15/23 04:35 [facility] Medical History Peripheral neuropathy Type 2 diabetes mellitus Hypertension Surgical History History of hysterectomy Family History Mother Heart attack Congestive heart failure Father Congestive heart failure Social History household members: none Smoking Status: Never smoker alcohol intake: current Discharge Assessment & Plan Assessment and Plan Assessment: 1. Acute ischemic stroke, present on admission and active. 2. History of 3 falls over 2 days secondary to stroke and right hemiparesis, present on admission and active. 3. DM 2, diet-controlled. Present on admission and stable. 4. Hypertension (poorly controlled), present on admission and stable. 5. Mild hyponatremia, present on admission and active. 6. Acute metabolic encephalopathy likely secondary to stroke, present on admission and active. 7. Sacral ulcer, stage 3. Present on admission and active. Wound Care evaluated and is following. 8. Uncomplicated Klebsiella UTI, present on admission and improving. Plan of Treatment: She will transfer to inpatient rehabilitation for ongoing rehabilitation efforts. She will require several more days of antibiotics, Rx is are included as well as completing 21 days of dual antiplatelet therapy with 19 remaining. High dose statin we will continue as well. She will need ongoing wound care for her sacral ulcer as well as monitoring of her blood pressure as she is leaving the. A permissive hypertension and likely has a history of uncontrolled hypertension. Discharge Plan Discharge Plan Patient Disposition: Xfer Inpatient Rehab Other facility: [facility]. Provider Discharge Comment: Patient was stable for discharge to inpatient rehab at [facility]. Discharge orders & Medications Discharge Orders: Discharge (Order); Ordered 10/17/23 Ordered By: Olvin Garcia Prescriptions: New aspirin 81 mg Tablet,Delayed Release (Dr/Ec) 81 mg PO DAILY Qty: 30 0RF atorvastatin 20 mg Tablet 80 mg PO BEDTIME Qty: 30 0RF cephalexin 250 mg Capsule 500 mg PO QID Qty: 12 0RF clopidogrel 75 mg Tablet 75 mg PO DAILY Qty: 19 0RF Continued gabapentin [Neurontin] 600 mg tablet 600 mg PO QAM gabapentin 600 mg tablet 1,200 mg PO BEDTIME Follow up/Referrals: Traci Mei RN [Primary Care Provider] - Discharge Health Status Multidrug resistant organism: No MDRO Diet/Activity/Treatments Diet: Low-fat Liquid consistency: Normal/Thin Food texture: Regular [facility] Rehab type: Physical therapy, Occupational therapy and Speech therapy Discharge Data Primary Care Provider: Traci Mei Quality VTE Deep Vein Thrombosis/Pulmonary Embolism Present on Admission: No
[2023-10-17] MEDS: HEPARIN 5,000 UNIT/ML VIAL 5000 UNIT SUBCUT (09:45)
[2023-10-17] MEDS: ASPIRIN EC 81 MG TABLET PO (09:45)
[2023-10-17] MEDS: CLOPIDOGREL 75 MG TABLET PO (09:45)
[2023-10-17] MEDS: cephALEXin 250 MG CAPSULE 500 MG PO (09:45)
--- NOTE | 2023-10-17 10:54 | CM.DPC ---
DCP Discharge Acute Rehab Per MD, pt is medically stable to discharge to Acute Rehab today and no identified barriers to discharge. SW met bedside with pt and she confirms she remains in agreement with Acute Inpt/Stroke Rehab and requests SW call her cousin Yoan to update as he is providing transport to rehab today. SW called cousin Yoan and updated on discharge orders and Yoan states he just pulled into the parking lot and has picked up some of pt's personal effects that pt requested and he will be bedside shortly and will provide transport to [facility] Acute Rehab today around 1030. SW spoke to Lina, admissions at [facility] Acute rehab, and provided update on discharge and faxed requested discharge summary, scripts, med list to review and provided RN the number to call report to and updated monitor car operator. Plan: Patient to discharge to [facility] Acute rehab today via cousin's POV before safe return home alone. KARISHMA Chase
--- NOTE | 2023-10-17 11:05 | PC.NURSE ---
Discharge note: Patient discharged per MD order. NIH 3. Ambulating SBA to BR. Voiding, BM this shift. Alert and oriented and pleasantly cooperative. Report given to Verenice GROSS, at [facility]. Discharge instructions given to patient, discussed importance of F/U with PMD, signs and sx of stroke, and new medication adherence. Verbalized understanding of importance. Discharged via private vehicle, accompanied by friend to [facility] Olga Ruff with packet/rx's.
== END 2023-10-17 11:18 | DRG 64 ==
LOC: ED 12:56 → AC 18:12
PROVIDERS: Admitting Provider Hospitalist; Emergency Provider Emergency Medicine; PCP Nurse Practitioner Family; Referring Provider Emergency Medicine; Visit Provider Hospitalist
DX: I63.9 Cerebral infarction, unspecified (principal); G93.41 Metabolic encephalopathy; L89.313 Pressure ulcer of right buttock, stage 3; E87.1 Hypo-osmolality and hyponatremia; N39.0 Urinary tract infection, site not specified; E11.9 Type 2 diabetes mellitus without complications; I10 Essential (primary) hypertension; B96.1 Klebsiella pneumoniae [K. pneumoniae] as the cause of diseases classified elsewhere; R29.705 NIHSS score 5; R29.704 NIHSS score 4; Z91.81 History of falling
CPT/HCPCS: 36415; 70450; 70496; 70498; 70551; 71045; 80048; 80053; 81003; 81015; 82550; 82962; 83690; 83735; 84484; 85025; 85610; 85730; 87077; 87086; 87186; 92523; 93005; 93880; 97116; 97162; 97166; 97530; 97535; 99284; 99285; J0696; J1644; Q9967

== ENCOUNTER → 2023-11-22 09:56 | Outpatient (CLI) | payer MEDICARE, SELFPAY ==
[2023-10-13 20:54] VITALS: BMI 25.7
[2023-11-22 11:30] LABS: BUN Creatinine Ratio 26.3 (6-22); Blood Urea Nitrogen 15 mg/dL (7-17); Calcium 9.1 mg/dL (8.4-10.2); Carbon Dioxide 29 mmol/L (22-32); Chloride 95 mmol/L (98-107); Estimated Glomerular Filt Rate > 60 mL/min (>60); Glucose 148 mg/dL (80-110); HEMOLYSIS < 15 (0-50); Potassium 4.3 mmol/L (3.4-5.1); Sodium 133 mmol/L (137-145)
[2023-11-22 11:43] LABS: Vitamin D 25 Hydroxy (D3) 81.6 ng/mL (30.0-100.0)
== END ==
PROVIDERS: PCP Nurse Practitioner Family; Referring Provider Nurse Practitioner Family; Visit Provider Nurse Practitioner Family
DX: M81.0 Age-related osteoporosis without current pathological fracture (principal); E87.5 Hyperkalemia
CPT/HCPCS: 36415; 80048; 82306

== ENCOUNTER → 2024-01-13 08:57 | Outpatient (CLI) | payer MEDICARE, SELFPAY ==
[2023-10-13 20:54] VITALS: BMI 25.7
[2024-01-13 10:32] LABS: Alanine Aminotransferase 31 IU/L (<35); Albumin 4.7 g/dL (3.5-5.0); Albumin Globulin Ratio 1.7 (1.0-2.8); Alkaline Phosphatase 90 U/L (38-126); Aspartate Aminotransferase 30 IU/L (14-36); BUN Creatinine Ratio 24.2 (6-22); Blood Urea Nitrogen 15 mg/dL (7-17); Carbon Dioxide 29 mmol/L (22-32); Chloride 97 mmol/L (98-107); Cholesterol 142 mg/dL (140-199); Estimated Glomerular Filt Rate > 60 mL/min (>60); Globulin 2.7 g/dL (1.7-4.1); Glucose 137 mg/dL (80-110); HDL Cholesterol 86 mg/dL (40-60); HEMOLYSIS < 15 (0-50); LDL Cholesterol Calculated 38 mg/dL (<100); Potassium 5.2 mmol/L (3.4-5.1); Sodium 133 mmol/L (137-145); Total Protein 7.4 g/dL (6.3-8.2); Triglycerides 89 mg/dL (35-150)
[2024-01-13 10:48] LABS: Vitamin D 25 Hydroxy (D3) 92.8 ng/mL (30.0-100.0)
== END ==
PROVIDERS: PCP Nurse Practitioner Family; Referring Provider Nurse Practitioner Family; Visit Provider Nurse Practitioner Family
DX: E78.5 Hyperlipidemia, unspecified (principal); E55.9 Vitamin D deficiency, unspecified; E61.1 Iron deficiency
CPT/HCPCS: 36415; 80053; 80061; 82306

== ENCOUNTER → 2024-04-05 14:34 | Outpatient (CLI) | payer MEDICARE, SELFPAY ==
[2023-10-13 20:54] VITALS: BMI 25.7
--- NOTE | 2024-04-05 | DI.MG.S_ITS ---
BILATERAL DIGITAL SCREENING MAMMOGRAM 3D/2D WITH CAD: 04/05/2024 CLINICAL: Routine screening. Family history of breast cancer. Comparison is made to exam dated: 04/27/2022 mammogram - [facility]. The breasts are extremely dense, which lowers the sensitivity of mammography (category d />75% glandular tissue). Current study was also evaluated with a Computer Aided Detection (CAD) system. There are benign calcifications in both breasts. There also are benign vascular calcifications in both breasts. No significant masses, calcifications, or other findings are seen in either breast. There has been no significant interval change. IMPRESSION: BENIGN There is no mammographic evidence of malignancy. A 1 year screening mammogram is recommended. Based on the Tyrer Cuzick model (a risk assessment model) the patient's lifetime risk is 12.6% and her 10 year risk is 12.6%. According to the ACR, ACS, and NCCN guidelines, an annual breast MRI exam along with mammogram is recommended if the patient's lifetime risk is 20% or greater. This exam was interpreted at Station ID: [id number]. NOTE: For mammograms, a report in lay terms will be sent to the patient. Approximately 15% of breast malignancies will not be visualized mammographically. In the management of a palpable breast mass, a negative mammogram must not discourage biopsy of a clinically suspicious lesion. Electronically Signed By: Prabhakar dela cruz/jose:04/07/2024 20:27:47 letter sent: Normal Exam ACR BI-RADS Category 2: Benign
--- NOTE | 2024-04-05 | DI.RAD.S_ITS ---
PROCEDURE: XR DEXA AXIAL SKELETON INDICATIONS: Age-related osteoporosis without current pathological fractu COMPARISON: [facility], CR, XR DEXA AXIAL SKELETON, 04/27/2022, 13:59. FINDINGS: Lumbar Spine: L2-L3. Bone mineral density 1.103 g/cm2, T score 0.4. Left Hip: Bone mineral density 0.694 g/cm2, T score -2.0. Left Femoral Neck: Bone mineral density 0.497 g/cm2, T score -3.2. Right Hip: Bone mineral density 0.632 g/cm2, T score -2.5. Right Femoral Neck: Bone mineral density 0.475 g/cm2, T score -3.4. Fracture Risk Calculation (when applicable): 10-year fracture risk of a major osteoporotic fracture 34 percent and of a hip fracture 14 percent. (T score greater or equal to -1.0 to: NORMAL) (T score from -1.1 to -2.4: OSTEOPENIA) (T score less than or equal to -2.5: OSTEOPOROSIS) IMPRESSION: Osteoporosis. Follow-up guidelines as follows: Osteoporosis: Consider a repeat DEXA and Vertebral Fracture Assessment (VFA) exam in 2 years or sooner if medically necessary, to reassess this patient's status. Osteopenia: Consider a repeat DEXA in 2-3 years to reassess this patient's status, or if there is a new clinical indication. Normal: Consider a repeat DEXA in 5 years or sooner, or if there is a new clinical indication. All treatment decisions require clinical judgment and consideration of individual patient factors, including patient preferences, comorbidities, previous drug use, risk factors not captured in the FRAX model (e.g., frailty, falls, vitamin D deficiency, increased bone turnover, interval significant decline in bone density ) and possible under- or over-estimation of fracture risk by FRAX. In addition, the NOF Guide recommends that FDA-approved medical therapies be considered in postmenopausal women and men age >= 50 years with a: * Hip or vertebral (clinical or morphometric) fracture * T-score of <=-2.5 at the spine or hip * Ten-year fracture probability by FRAX of >= 3% for hip fracture or >=20% for major osteoporotic fracture. People with diagnosed cases of osteoporosis or at high risk for fracture should have regular bone mineral density tests. For patients eligible for Medicare, routine testing is allowed once every 2 years. The testing frequency can be increased to one year for patients who have rapidly progressing disease, those who are receiving or discontinuing medical therapy to restore bone mass, or have additional risk factors. Dictated by: Chris Kee M.D. on 04/06/2024 at 10:48 Approved by: Chris Kee M.D. on 04/06/2024 at 10:51
== END ==
PROVIDERS: PCP Nurse Practitioner Family; Referring Provider Nurse Practitioner Family; Visit Provider Nurse Practitioner Family
DX: Z80.3 Family history of malignant neoplasm of breast (principal); Z12.31 Encounter for screening mammogram for malignant neoplasm of breast; R92.343 Mammographic extreme density, bilateral breasts; M81.0 Age-related osteoporosis without current pathological fracture
CPT/HCPCS: 77063; 77067; 77080

== ENCOUNTER → 2024-04-26 09:37 | Outpatient (CLI) | payer MEDICARE, SELFPAY ==
[2023-10-13 20:54] VITALS: BMI 25.7
[2024-04-26 11:06] LABS: Add Manual Diff / Slide Review NO; Basophils Absolute Auto 0 /uL (0-100); Basophils Percent Auto 0.1 % (0-2); Eosinophils Absolute Auto 100 /uL (0-450); Eosinophils Percent Auto 1.5 % (2-4); Hematocrit 41.6 % (36-46); Hemoglobin 14.2 g/dL (12.0-16.0); Lymphocytes Absolute Auto 500 /uL (1100-4500); Lymphocytes Percent Auto 11.6 % (25-40); Mean Corpuscular HGB Conc 34.1 % (30-36); Mean Corpuscular Hemoglobin 31.8 PG (26-34); Mean Corpuscular Volume 93.2 fL (80-100); Monocytes Absolute Auto 200 /uL (0-900); Monocytes Percent Auto 4.6 % (3-14); Neutrophils Absolute Auto 3800 /uL (1500-7000); Neutrophils Percent Auto 82.2 % (50-75); Platelet Count 165 X10^3/uL (150-400); Red Blood Cell Count 4.47 X10^6/uL (4.0-5.2); Red Cell Distribution Width 13.6 % (11.6-14.8); White Blood Cell Count 4.7 X10^3/uL (4.5-11.0)
[2024-04-26 11:13] LABS: Hemoglobin A1C% w Est Avg Glu 6.3 % (4.0-6.0)
[2024-04-26 11:17] LABS: HEMOLYSIS < 15 (0-50); Iron 110 ug/dL (37-170)
[2024-04-26 11:28] LABS: Alanine Aminotransferase 24 IU/L (<35); Albumin 4.5 g/dL (3.5-5.0); Alkaline Phosphatase 76 U/L (38-126); Aspartate Aminotransferase 29 IU/L (14-36); Bilirubin Total 0.9 mg/dL (0.2-1.3); Blood Urea Nitrogen 12 mg/dL (7-17); Calcium 9.8 mg/dL (8.4-10.2); Carbon Dioxide 27 mmol/L (22-32); Chloride 97 mmol/L (98-107); Cholesterol 134 mg/dL (140-199); Estimated Glomerular Filt Rate > 60 mL/min (>60); Globulin 2.2 g/dL (1.7-4.1); Glucose 124 mg/dL (80-110); HDL Cholesterol 76 mg/dL (40-60); HEMOLYSIS < 15 (0-50); LDL Cholesterol Calculated 46 mg/dL (<100); Potassium 4.3 mmol/L (3.4-5.1); Sodium 133 mmol/L (137-145); Total Protein 6.7 g/dL (6.3-8.2); Triglycerides 59 mg/dL (35-150)
[2024-04-26 11:30] LABS: Percent Iron Saturation 39 % (15-50); Total Iron Binding Capacity 282 ug/dL (265-497); Transferrin 219 mg/dL (206-381)
[2024-04-26 12:00] LABS: Ferritin 47 ng/mL (11-264)
== END ==
PROVIDERS: PCP Nurse Practitioner Family; Referring Provider Nurse Practitioner Family; Visit Provider Nurse Practitioner Family
DX: E78.5 Hyperlipidemia, unspecified (principal); R73.9 Hyperglycemia, unspecified; Z86.39 Personal history of other endocrine, nutritional and metabolic disease; E22.2 Syndrome of inappropriate secretion of antidiuretic hormone
CPT/HCPCS: 36415; 80053; 80061; 82728; 83036; 83540; 83550; 85025